=== PATIENT | male | born 1955 | race Caucasian/White ===

== ENCOUNTER 2017-10-17 14:45 | Inpatient (IN) | payer OTHER ==
[2017-10-17] VITALS (9 sets, daily range): BP systolic 120–167; BP diastolic 64–74; PULSE 74–100; RESP 18–22; TEMP 98.2–101.5; O2SAT 90–99
[~2017-10-17] VITALS: Ht 172.7 cm; Wt 129.6 kg
[~2017-10-17 14:45] MED LIST: ASPI81 PO; COZA100T PO; FOLI1 PO; GEMF600 PO; HYDR50TA15 PO; HYDR50TA5 PO; METH2.5 PO; OMEG100037 PO; PRED5TAB PO; TAB-TAB PO
[2017-10-17] MEDS ORDERED: LOSA100T PO (15:17)
[2017-10-17] MEDS ORDERED: CHOLTAB5 PO (15:17)
[2017-10-17] MEDS ORDERED: CYAN1TAB24 PO (15:17)
[2017-10-17] MEDS ORDERED: METH2.5T PO (15:17)
[2017-10-17] MEDS ORDERED: MELA1TAB18 PO (15:17)
[2017-10-17] MEDS ORDERED: ASPI-183 PO (15:17)
[2017-10-17] MEDS ORDERED: FURO40TA PO (15:17)
[2017-10-17] MEDS ORDERED: GEMF600T PO (15:17)
[2017-10-17] MEDS ORDERED: FOLI400T PO (15:17)
[2017-10-17] MEDS ORDERED: HYDR-3801 PO (15:17)
[2017-10-17] MEDS ORDERED: Fish oil PO (15:17)
[2017-10-17] MEDS ORDERED: FERR325T18 PO (15:17)
[2017-10-17] MEDS ORDERED: COQ-50CA2 PO (15:17)
[2017-10-17] MEDS ORDERED: AMLO10TA2 PO (15:17)
--- NOTE | 2017-10-17 15:48 | PD ---
HPI Chief Complaint: Fever Time Seen by Provider: 15:40 Travel History International Travel<30 days: No Contact w/Intl Traveler<30days: No Traveled to known affect area: No History of Present Illness HPI This 62-year-old male says been having fever for the last 4-5 days. He has had fever as high as 101.5. He has not been coughing. He has not had dysuria. He has a history of coronary artery bypass surgery around 20 years ago. He has been told that he has a bad valve for which she is followed by Dr. Damon. He does not smoke or drink. There is been no vomiting or diarrhea. His primary care doctor is Dr. Rivas. He has a history of congestive heart failure. He has had some swelling of his ankles. He is chronically short of breath. He has significant rheumatoid arthritis. He says that last he was taken off of [employer] because it was not working. His rheumatoid factors were going higher. He is having some pain in his hands but no pain in his major joints. PFSH Past Medical History Arthritis: Yes Anxiety: No Depression: No Cancer: No Cardiac Catheterization: Yes Cardiovascular Problems: Yes High Cholesterol: Yes Chest Pain: Yes Congestive Heart Failure: Yes Coronary Artery Disease: Yes Diminished Hearing: No Endocrine: No Genitourinary: Yes Hypertension: Yes Immune Disorder: No Kidney Stones: Yes Musculoskeletal: Yes Neurologic: No Psychiatric: No Reproductive: No Respiratory: No Myocardial Infarction: Yes Tetanus Vaccination: > 5 Years Influenza Vaccination: No Past Surgical History Cardiac Surgery: Yes (CABG) Coronary Artery Bypass Graft: Yes Tonsillectomy: Yes Other Surgery: Yes Social History Alcohol Use: No Tobacco Use: No Substance Use: No Allergies-Medications (Allergen,Severity, Reaction): Coded Allergies: Influenza Virus Vaccines (Unverified Allergy, Severe, SITE SWELLING, ) Reported Meds & Prescriptions Reported Meds & Active Scripts Active Reported Amlodipine (Amlodipine Besylate) 10 Mg Tab 10 Mg PO DAILY Gemfibrozil 600 Mg Tab 600 Mg PO BIDAC Take 30 minutes prior to breakfast and dinner. Melatonin 10 Mg-1 Mg Tab 300 Mcg PO HS PRN Methotrexate 2.5 Mg Tab 20 Mg PO Q7D Losartan (Losartan Potassium) 100 Mg Tab 100 Mg PO DAILY Aspirin 325 Mg Tab 325 Mg PO DAILY B12 (Cyanocobalamin) 1,000 Mcg Tab 1 Tab PO BID Furosemide 40 Mg Tab 40 Mg PO BID Cholestoff (Plant Sterols and Stanols) 450 Mg Tab 1 Tab PO BID Ferrous Sulfate 325 Mg (65 Mg Iron) Tablet 325 Mg PO DAILY Hydralazine (Hydralazine HCl) 100 Mg Tab 100 Mg PO BID Take with meals Folic Acid 0.4 Mg Tab 1 Mg PO DAILY [Fish oil] 1,000 Mg PO BID Coq-10 (Coenzyme Q10 (Ubidecarenone)) 50 Mg Cap 1 Cap PO BID Review of Systems General / Constitutional: Positive: Fever, Chills Eyes: No: Diploplia, Blurred Vision HENT: No: Headaches, Vertigo Cardiovascular: Positive: Edema, No: Chest Pain or Discomfort, Palpitations Respiratory: Positive: Shortness of Breath Gastrointestinal: No: Nausea, Vomiting Genitourinary: No: Urgency, Frequency Musculoskeletal: No: Myalgias, Arthralgias Skin: No Rash, No Itching Endocrine: No: Heat Intolerance, Cold Intolerance Hematologic/Lymphatic: No: Easy Bruising Physical Exam Narrative GENERAL: Well-developed male. Temp is 101.5. Pulse 100 SKIN: Focused skin assessment warm/dry. HEAD: Atraumatic. Normocephalic. EYES: Pupils equal and round. No scleral icterus. No injection or drainage. ENT: No nasal bleeding or discharge. Mucous membranes pink and moist. NECK: Trachea midline. No JVD. CARDIOVASCULAR: Regular rate and rhythm. Faint systolic murmur RESPIRATORY: No accessory muscle use. Clear to auscultation. Breath sounds equal bilaterally. GASTROINTESTINAL: Abdomen soft, non-tender, nondistended. Hepatic and splenic margins not palpable. MUSCULOSKELETAL: No obvious deformities. No clubbing. No cyanosis. Trace edema. NEUROLOGICAL: Awake and alert. No obvious cranial nerve deficits. Motor grossly within normal limits. Normal speech. PSYCHIATRIC: Appropriate mood and affect; insight and judgment normal. Data Data Last Documented VS Vital Signs Date Time Temp Pulse Resp B/P (MAP) Pulse Ox O2 Delivery O2 Flow Rate FiO2 10/17/17 18:35 74 18 120/74 (89) 97 Nasal Cannula 2.00 10/17/17 17:00 99.1 Orders Orders Sepsis Workup Initiated (10/17/17 ) Complete Blood Count With Diff (10/17/17 15:46) Comprehensive Metabolic Panel (10/17/17 15:46) Lactic Acid Sepsis Protocol (10/17/17 15:46) Urinalysis - C+S If Indicated (10/17/17 15:46) Influenzae A/B Antigen (10/17/17 15:46) Blood Culture (10/17/17 15:46) Chest, Single Ap (10/17/17 15:46) Blood Glucose (10/17/17 15:46) Ecg Monitoring (10/17/17 15:46) Iv Access Insert/Monitor (10/17/17 15:46) Oximetry (10/17/17 15:46) Oxygen Administration (10/17/17 15:46) Acetaminophen (Tylenol) (10/17/17 16:00) Sodium Chlor 0.9% 1000 Ml Inj (Ns 1000 M (10/17/17 16:00) Acetaminophen (Tylenol) (10/17/17 16:15) B-Type Natriuretic Peptide (10/17/17 16:48) Furosemide Inj (Lasix Inj) (10/17/17 17:00) Potassium Chloride (Kcl) (10/17/17 17:00) Ct Thorax/ Chest W Iv Contrast (10/17/17 17:51) Iohexol 350 Inj (Omnipaque 350 Inj) (10/17/17 18:26) Labs Laboratory Tests Test 10/17/17 16:00 10/17/17 16:10 White Blood Count 10.3 TH/MM3 Red Blood Count 3.98 MIL/MM3 Hemoglobin 10.7 GM/DL Hematocrit 33.1 % Mean Corpuscular Volume 83.2 FL Mean Corpuscular Hemoglobin 26.8 PG Mean Corpuscular Hemoglobin Concent 32.2 % Red Cell Distribution Width 17.5 % Platelet Count 355 TH/MM3 Mean Platelet Volume 7.6 FL Neutrophils (%) (Auto) 83.7 % Lymphocytes (%) (Auto) 4.4 % Monocytes (%) (Auto) 9.7 % Eosinophils (%) (Auto) 1.8 % Basophils (%) (Auto) 0.4 % Neutrophils # (Auto) 8.6 TH/MM3 Lymphocytes # (Auto) 0.5 TH/MM3 Monocytes # (Auto) 1.0 TH/MM3 Eosinophils # (Auto) 0.2 TH/MM3 Basophils # (Auto) 0.0 TH/MM3 CBC Comment DIFF FINAL Differential Comment Blood Urea Nitrogen 14 MG/DL Creatinine 1.30 MG/DL Random Glucose 136 MG/DL Total Protein 8.4 GM/DL Albumin 3.0 GM/DL Calcium Level 8.8 MG/DL Alkaline Phosphatase 80 U/L Aspartate Amino Transf (AST/SGOT) 17 U/L Alanine Aminotransferase (ALT/SGPT) 24 U/L Total Bilirubin 0.5 MG/DL Sodium Level 136 MEQ/L Potassium Level 3.9 MEQ/L Chloride Level 104 MEQ/L Carbon Dioxide Level 25.3 MEQ/L Anion Gap 7 MEQ/L Estimat Glomerular Filtration Rate 56 ML/MIN Lactic Acid Level 1.4 mmol/L B-Type Natriuretic Peptide 151 PG/ML Urine Color YELLOW Urine Turbidity CLEAR Urine pH 6.0 Urine Specific [place] 1.015 Urine Protein 30 mg/dL Urine Glucose (UA) NEG mg/dL Urine Ketones NEG mg/dL Urine Occult Blood LARGE Urine Nitrite NEG Urine Bilirubin NEG Urine Urobilinogen 0.2 MG/DL Urine Leukocyte Esterase NEG Urine RBC 20-24 /hpf Urine WBC 0-2 /hpf Urine Squamous Epithelial Cells 0-5 /hpf Urine Bacteria NONE /hpf Microscopic Urinalysis Comment CULT NOT INDICATED MDM Medical Decision Making Medical Screen Exam Complete: Yes Emergency Medical Condition: Yes Medical Record Reviewed: Yes Differential Diagnosis Differential includes viral syndrome, UTI, pneumonia Narrative Course Hemoglobin is 10.7 with a white count of 10.7. Urinalysis reveals 20-24 red cells. Chest x-ray is read as showing multiple pulmonary nodules. CT is recommended and has been ordered. CT scan is read as showing diffuse interstitial and groundglass opacities with numerous sub-4 mm random nodule sparing the apices and lung bases. Pattern is somewhat nonspecific but likely infectious/inflammatory in etiology. Consider atypical infections. There is mediastinal adenopathy which is nonspecific. Again favor infectious/ inflammatory etiology. Patient will be admitted for further evaluation. We have not initiated antibiotics as the etiology of the infection is not clear Diagnosis Primary Impression: Fever Additional Impression: Pneumonia Admitting Information Admitting Physician Requests: Admit Triston Quintanilla MD October 17, 2017 15:48
[2017-10-17] MEDS ORDERED: ACETAMINOPHEN 325 MG TAB PO ONE (16:00)
[2017-10-17] MEDS ORDERED: SODIUM CHLOR 0.9% 1000 ML INJ 1,000 ML IV ONE (16:00)
[2017-10-17 16:13] LABS: AUTOMATED NEUTROPHIL # 8.6 TH/MM3 (1.8-7.7); BASOPHIL % 0.4 % (0.0-2.0); EOSINOPHIL # 0.2 TH/MM3 (0-0.4); EOSINOPHIL % 1.8 % (0.0-4.0); HEMATOCRIT 33.1 % (39.0-51.0); HEMOGLOBIN 10.7 GM/DL (13.0-17.0); LYMPH % 4.4 % (9.0-44.0); LYMPHOCYTE # 0.5 TH/MM3 (1.0-4.8); MEAN CELL VOLUME 83.2 FL (80.0-100.0); MEAN CORPUSCULAR HEMOGLOBIN 26.8 PG (27.0-34.0); MEAN CORPUSCULAR HGB CONC 32.2 % (32.0-36.0); MEAN PLATELET VOLUME 7.6 FL (7.0-11.0); MONO % 9.7 % (0.0-8.0); NEUT % 83.7 % (16.0-70.0); PLATELET COUNT 355 TH/MM3 (150-450); RED BLOOD COUNT 3.98 MIL/MM3 (4.50-5.90); RED CELL DISTRIBUTION WIDTH 17.5 % (11.6-17.2); WHITE BLOOD COUNT 10.3 TH/MM3 (4.0-11.0)
[2017-10-17] MEDS ORDERED: ACETAMINOPHEN 500 MG CPLT PO ONE (16:15)
[2017-10-17 16:22] LABS: CHLORIDE 104 MEQ/L (98-107); SODIUM (NA) 136 MEQ/L (136-145)
[2017-10-17 16:22] LABS: BILIRUBIN, URINE NEG (NEG); BLOOD, URINE LARGE (NEG); GLUCOSE,URINE NEG (NEG); KETONE, URINE NEG (NEG); NITRITE,URINE NEG (NEG); URINE COLOR YELLOW (YELLW/STRAW); URINE LEUKOCYTE ESTERASE NEG (NEG)
[2017-10-17 16:25] LABS: BICARBONATE 25.3 MEQ/L (21.0-32.0); CALCIUM 8.8 MG/DL (8.5-10.1)
[2017-10-17 16:26] LABS: BLOOD UREA NITROGEN 14 MG/DL (7-18); GLUCOSE,RANDOM 136 MG/DL (74-106)
[2017-10-17 16:29] LABS: ALT (GPT) 24 U/L (12-78); AST (GOT) 17 U/L (15-37); GLOMERULAR FILTRATION RATE 56 ML/MIN (>89)
[2017-10-17 16:30] LABS: TOTAL BILIRUBIN ADULT 0.5 MG/DL (0.2-1.0); TOTAL PROTEIN 8.4 GM/DL (6.4-8.2)
[2017-10-17 16:31] LABS: ALKALINE PHOSPHATASE 80 U/L (45-117)
[2017-10-17 16:33] LABS: SQUAMOUS EPITHELIAL CELL URINE 0-5 /hpf (0-5); WBC, URINE 0-2 /hpf (0-5)
[2017-10-17] MEDS ORDERED: POTASSIUM CHLORIDE 20 MEQ CONTROLLED RELEASE TAB PO ONE (17:00)
[2017-10-17] MEDS ORDERED: FUROSEMIDE 40 MG/4 ML VIAL IV PUSH ONE (17:00)
--- NOTE | 2017-10-17 17:49 | RADRPT ---
EXAM DATE: 10/17/2017 4:42 PM EDT AGE/SEX: 62 years / Male INDICATIONS: Fever for 4 days CLINICAL DATA: This is the patient's initial encounter. Patient reports that signs and symptoms have been present for 4 - 6 days and indicates a pain score of 0/10. MEDICAL/SURGICAL HISTORY: Cardiovascular disease. CABG. COMPARISON: [facility], CHEST PA & LAT, 12/10/2013. . FINDINGS: Single view chest demonstrates the patient be post median sternotomy. The heart is enlarged. There is diffuse interstitial prominence. There are diffuse pulmonary nodules. These were not evident on prev ious exam of 2013. CT imaging to exclude malignancy is warranted. The visualized bony structures are grossly intact. CONCLUSION: 1. Multiple pulmonary nodules. CT imaging with contrast to exclude malignancy is warranted. 2. Cardiomegaly. Electronically signed by: Ketan Ozuna MD 10/17/2017 5:47 PM EDT
[2017-10-17] MEDS ORDERED: IOHEXOL 350 MG/ML 10 ML VIAL (for RAD DIAG) IVCONTRAST ONE (18:26)
--- NOTE | 2017-10-17 18:45 | RADRPT ---
EXAM DATE: 10/17/2017 6:32 PM EDT AGE/SEX: 62 years / Male INDICATIONS: Fever and tachycardia. Abnormal chest radiograph with multiple pulmonary nodules. Evalu ate for malignancy. CLINICAL DATA: This is the patient's initial encounter. Patient reports that signs and symptoms have been present for 1 day and indicates a pain score of 0/10. MEDICAL/SURGICAL HISTORY: Cardiovascular disease. Hypertension. Myocardial infarction. CABG. RADIATION DOSE: 30.94 CTDI (mGy) ; Patient body habitus COMPARISON: [facility], CHEST PA & LAT, 12/10/2013. . TECHNIQUE: Multiple contiguous axial images were obtained through the chest during bolus infusion of 60 ml Omnipaque 350 (iohexol) nonionic water-soluble contrast as a single exam dose. Images were obtained in suspended respiration using multiple row detector helical technique. Using automated exp osure control and adjustment of the mA and/or kV according to patient size, radiation dose was kept a s low as reasonably achievable to obtain optimal diagnostic quality images. FINDINGS: Lung: There are diffuse groundglass opacities and diffuse interstitial prominence. There are also nu merous sub-4 mm random nodules with apparent sparing of the apices and lung bases. There are no domin ant nodules or masses. No obvious endobronchial abnormality. Pleura: No effusion, significant pleural thickening or pneumothorax. Mediastinum: There are multiple minimally prominent mediastinal nodes measuring up to 1.3 cm in the anterior carinal region and 1.3 cm in AP window. Mild pericardial calcifications and coronary artery calcifications. Postsurgical features of prior median sternotomy. Heart is otherwise unremarkable. Osseous Structures: No abnormal focal lytic or blastic bony lesions. Soft Tissues: Soft tissues are unremarkable. No significant axillary adenopathy. Other: Visulaized upper abdomen is unremarkable. CONCLUSION: 1. Diffuse interstitial and groundglass opacities with numerous sub-4 mm random nodules sparing the apices and lung bases. Overall pattern is somewhat nonspecific but likely infectious/inflammatory in etiology. Consider atypical infections. 2. Mediastinal adenopathy which is also nonspecific. Again, favor infectious/inflammatory etiology. Electronically signed by: Gilmar Severino MD 10/17/2017 6:44 PM EDT
[2017-10-17] MEDS: SODIUM CHLOR 0.9% 1000 ML INJ 1,000 ML IV SCH (19:58)
[2017-10-17] MEDS: ENOXAPARIN SODIUM 40 MG/0.4 ML SYRINGE SQ SCH (19:58)
[2017-10-17] MEDS ORDERED: cefTRIAXone INJ 1,000 MG in SODIUM CHLORIDE 0.9% INJ 100 ML IV SCH (20:00)
[2017-10-17] MEDS ORDERED: NON-FORMULARY DRUG (Coenzyme Q10 (Ubidecarenone) (Coq-10) 1 CAP) PO SCH (21:00)
[2017-10-17] MEDS: CYANOCOBALAMIN 1,000 MCG TAB PO SCH (21:00)
[2017-10-17] MEDS ORDERED: MELATONIN PO PRN (21:00)
[2017-10-17] MEDS: hydrALAZINE HCL 50 MG TAB PO SCH (23:18)
[2017-10-18] MEDS: GEMFIBROZIL 600 MG TAB PO SCH ×2 (05:05→16:12)
[2017-10-18] MEDS: SODIUM CHLOR 0.9% 1000 ML INJ 1,000 ML IV SCH ×2 (05:06→19:40)
[2017-10-18 05:53] LABS: AUTOMATED NEUTROPHIL # 8.2 TH/MM3 (1.8-7.7); BASOPHIL % 0.3 % (0.0-2.0); EOSINOPHIL # 0.2 TH/MM3 (0-0.4); HEMATOCRIT 33.4 % (39.0-51.0); LYMPH % 2.8 % (9.0-44.0); LYMPHOCYTE # 0.3 TH/MM3 (1.0-4.8); MEAN CELL VOLUME 83.3 FL (80.0-100.0); MEAN CORPUSCULAR HEMOGLOBIN 27.4 PG (27.0-34.0); MEAN CORPUSCULAR HGB CONC 32.9 % (32.0-36.0); MEAN PLATELET VOLUME 8.5 FL (7.0-11.0); MONO % 10.4 % (0.0-8.0); NEUT % 84.5 % (16.0-70.0); PLATELET COUNT 375 TH/MM3 (150-450); RED BLOOD COUNT 4.01 MIL/MM3 (4.50-5.90); RED CELL DISTRIBUTION WIDTH 18.2 % (11.6-17.2); WHITE BLOOD COUNT 9.8 TH/MM3 (4.0-11.0)
[2017-10-18 08:00] VITALS: BP 138/65; PULSE 84; RESP 20; TEMP 100.5; O2SAT 95
[2017-10-18] MEDS: CYANOCOBALAMIN 1,000 MCG TAB PO SCH ×3 (08:23→21:05)
[2017-10-18] MEDS: ASPIRIN 325 MG TAB PO SCH (08:24)
[2017-10-18] MEDS: FERROUS SULFATE 325 MG (65 MG ELEMENTAL IRON) TAB PO SCH (08:24)
[2017-10-18] MEDS: FOLIC ACID 1 MG TAB PO SCH (08:24)
[2017-10-18] MEDS: hydrALAZINE HCL 50 MG TAB PO SCH ×2 (08:25→21:00)
[2017-10-18] MEDS: LOSARTAN 50 MG TAB PO SCH (08:25)
--- NOTE | 2017-10-18 08:41 | PD.CONS ---
History of Present Illness Service Infectious Disease Consult Requested By Dr Emre Bee Reason for Consult Fever, Lung nodules, RA Primary Care Physician Dmitri Rivas MD Diagnoses: (1) Rheumatoid arthritis (2) Pulmonary nodules/lesions, multiple (3) Fever (4) Pneumonia History of Present Illness Patient with known Rheumatoid arthritis has been on Methotrexate for a while and just got off Xeljanz because it was not working - started having fevers last Sunday. Also noticed some shortness of breath and a dry cough so came to hospital. Imaging studies reveal multiple pulmonary nodules. No h/o lung problems before. Works with [employer]. Prior to living in [place]- was in [place]. Has a dog and cats at home. TB test prior to starting immunosuppressives were negative. Review of Systems Constitutional: COMPLAINS OF: Fever, Chills Endocrine: DENIES: Polydipsia, Polyphagia Eyes: DENIES: Eye inflammation, Eye pain, Vision loss Ears, nose, mouth, throat: DENIES: Nasal discharge, Oral lesions, Throat pain, Hoarseness Respiratory: COMPLAINS OF: Cough, DENIES: Hemoptysis, Sputum production, Shortness of breath Cardiovascular: DENIES: Chest pain, Palpitations Gastrointestinal: DENIES: Constipation, Diarrhea, Difficulty Swallowing, Anorexia Genitourinary: DENIES: Urinary frequency, Urgency, Hematuria Musculoskeletal: COMPLAINS OF: Joint pain, Muscle aches, Joint Swelling Integumentary: DENIES: Pruritus, Rash Hematologic/lymphatic: DENIES: Bruising, Lymphadenopathy Neurologic: DENIES: Headache, Localized weakness, Paresthesias Psychiatric: DENIES: Confusion, Mood changes, Depression Past Family Social History Allergies: Coded Allergies: Influenza Virus Vaccines (Unverified Allergy, Severe, SITE SWELLING, ) Past Medical History HTN CAD RA Hyperlipidemia Past Surgical History CABG Tonsillectomy Active Ordered Medications Got a dose of Ceftriaxone Family History No h/o RA Social History . 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 Lived in [place] prior to [place] Past smoker Physical Exam Vital Signs Vital Signs Date Time Temp Pulse Resp B/P (MAP) Pulse Ox O2 Delivery O2 Flow Rate FiO2 10/18/17 08:00 100.5 84 20 138/65 (89) 95 10/17/17 22:00 98.2 81 20 146/65 (92) 90 10/17/17 21:34 78 18 98 Nasal Cannula 2.00 5/30/18 21:33 78 18 141/68 (92) 97 Nasal Cannula 2.00 10/17/17 21:12 97 Nasal Cannula 2.00 10/17/17 20:03 74 18 145/64 (91) 97 Nasal Cannula 2.00 10/17/17 18:35 74 18 120/74 (89) 97 Nasal Cannula 2.00 10/17/17 17:00 99.1 80 22 140/68 (92) 94 Nasal Cannula 2.00 10/17/17 15:05 96 Nasal Cannula 2.00 10/17/17 15:05 96 Nasal Cannula 2.00 10/17/17 15:00 101.5 92 20 167/74 (105) 96 Nasal Cannula 2.00 10/17/17 14:58 101.5 100 18 167/74 (105) 99 Physical Exam GENERAL: This is a obese patient,- needing oxygen via nasal canula SKIN: No rashes, ecchymoses or lesions. Cool and dry. HEAD: Atraumatic. Normocephalic. No temporal or scalp tenderness. EYES: Pupils equal round and reactive. Extraocular motions intact. No scleral icterus. No injection or drainage. ENT: Nose without bleeding, purulent drainage or septal hematoma. Throat without erythema, tonsillar hypertrophy or exudate. Uvula midline. Airway patent. NECK: Trachea midline. No JVD or lymphadenopathy. Supple, nontender, no meningeal signs. CARDIOVASCULAR: Regular rate and rhythm without murmurs, gallops, or rubs. Midline scar of surgery RESPIRATORY: Clear to auscultation. Breath sounds decreased bilaterally. No wheezes, rales, or rhonchi. GASTROINTESTINAL: Abdomen soft, non-tender, nondistended. No hepato-splenomegaly , or palpable masses. No guarding. MUSCULOSKELETAL: Extremities without clubbing, cyanosis, or edema. No joint tenderness, effusion, or edema noted. No calf tenderness. Negative Homans sign bilaterally. NEUROLOGICAL: Awake and alert. Cranial nerves II through XII intact. Motor and sensory grossly within normal limits. Five out of 5 muscle strength in all muscle groups. Normal speech. Laboratory Laboratory Tests Test 10/17/17 16:00 10/17/17 16:10 10/18/17 04:40 White Blood Count 10.3 9.8 Red Blood Count 3.98 4.01 Hemoglobin 10.7 11.0 Hematocrit 33.1 33.4 Mean Corpuscular Volume 83.2 83.3 Mean Corpuscular Hemoglobin 26.8 27.4 Mean Corpuscular Hemoglobin Concent 32.2 32.9 Red Cell Distribution Width 17.5 18.2 Platelet Count 355 375 Mean Platelet Volume 7.6 8.5 Neutrophils (%) (Auto) 83.7 84.5 Lymphocytes (%) (Auto) 4.4 2.8 Monocytes (%) (Auto) 9.7 10.4 Eosinophils (%) (Auto) 1.8 2.0 Basophils (%) (Auto) 0.4 0.3 Neutrophils # (Auto) 8.6 8.2 Lymphocytes # (Auto) 0.5 0.3 Monocytes # (Auto) 1.0 1.0 Eosinophils # (Auto) 0.2 0.2 Basophils # (Auto) 0.0 0.0 CBC Comment DIFF FINAL DIFF FINAL Differential Comment Blood Urea Nitrogen 14 Creatinine 1.30 Random Glucose 136 Total Protein 8.4 Albumin 3.0 Calcium Level 8.8 Alkaline Phosphatase 80 Aspartate Amino Transf (AST/SGOT) 17 Alanine Aminotransferase (ALT/SGPT) 24 Total Bilirubin 0.5 Sodium Level 136 Potassium Level 3.9 Chloride Level 104 Carbon Dioxide Level 25.3 Anion Gap 7 Estimat Glomerular Filtration Rate 56 Lactic Acid Level 1.4 B-Type Natriuretic Peptide 151 Urine Color YELLOW Urine Turbidity CLEAR Urine pH 6.0 Urine Specific [place] 1.015 Urine Protein 30 Urine Glucose (UA) NEG Urine Ketones NEG Urine Occult Blood LARGE Urine Nitrite NEG Urine Bilirubin NEG Urine Urobilinogen 0.2 Urine Leukocyte Esterase NEG Urine RBC 20-24 Urine WBC 0-2 Urine Squamous Epithelial Cells 0-5 Urine Bacteria NONE Microscopic Urinalysis Comment CULT NOT INDICATED Date/Time Source Procedure Growth Status 10/17/17 16:05 Blood Peripheral Aerobic Blood Culture Pending Received 10/17/17 16:05 Blood Peripheral Anaerobic Blood Culture Pending Received 10/17/17 16:00 Nasal Aspirate Influenza Types A,B Antigen (CHELA) - Final NEGATIVE FOR FLU A AND B ANTIGEN.... Complete 10/18/17 05:10 Urine Random Urine Legionella Antigen Pending Received 10/18/17 05:10 Urine Random Urine Streptococcus pneumoniae Antigen (M Pending Received Result Diagram: 10/18/17 0440 10/17/17 1600 Assessment and Plan Problem List: (1) Fever ICD Codes: R50.9 - Fever, unspecified Status: Acute Plan: Follow Blood cultures Check for atypical infections- mycoplasma, chlamydiae & Legionella Also check for Histoplasma, TB Quantiferon and Bartonella Start Cefepime and Doxy Check Echo (2) Pneumonia ICD Codes: J18.9 - Pneumonia, unspecified organism Status: Acute (3) Pulmonary nodules/lesions, multiple ICD Codes: R91.8 - Other nonspecific abnormal finding of lung field Plan: Pulmonary evaluation May need Bronchoscopy (4) Rheumatoid arthritis ICD Codes: M06.9 - Rheumatoid arthritis, unspecified Status: Chronic Renetta Amezcua MD October 18, 2017 08:41
[2017-10-18] MEDS: CEFEPIME INJ 2,000 MG in SODIUM CHLORIDE 0.9% INJ 100 ML IV SCH ×2 (09:02→21:00)
[2017-10-18] MEDS: DOXYCYCLINE INJ 100 MG in SODIUM CHLORIDE 0.9% INJ 100 ML IV SCH ×2 (10:07→22:40)
[2017-10-18 12:00] VITALS: BP 127/58; PULSE 83; RESP 20; TEMP 98.5; O2SAT 95
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
[2017-10-18 13:48] VITALS: TEMP 99.3
--- NOTE | 2017-10-18 15:06 | MB ---
cc: Adwoa Orona MD DATE: 10/18/2017 REASON FOR CONSULTATION: Bilateral lung nodules, shortness of breath, fever. HISTORY OF PRESENT ILLNESS: Mr. Mccray is a 62-year-old male who was admitted through the emergency room with 4-5 days of elevated temperature. The patient as well was complaining of increasing shortness of breath. He does have a dry cough. He said he has been short of breath for over a year now. It comes and goes. He does have a remote smoking history; however, has not smoked for 30 years or so. No history of TB or industrial exposure. Used to live in [place] before he moved to the [facility]. PAST MEDICAL HISTORY: Rheumatoid arthritis and has been on methotrexate in the past, previous PPD testing was negative, history of coronary artery disease, post coronary artery bypass graft surgery 20 years ago, history of renal calculi, tonsillectomy and adenoidectomy as a child, hypertension. ALLERGIES: INFLUENZA VACCINE AND STATINS. MEDICATIONS UPON PRESENTATION: Include methotrexate, ferrous sulfate, Lopid, hydralazine, amlodipine, losartan, aspirin, Lasix, vitamin tablet. 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 REVIEW OF SYSTEMS: A 12-point review of systems as per HPI and past medical history. The patient as well states that his tells him his breathing is somewhat irregular when he is sleeping at night. PHYSICAL EXAMINATION: GENERAL: The patient alert. VITAL SIGNS: Temperature is 99.3, pulse 84, respirations 20, blood pressure 130/60, oxygen saturation 95% on 2 liters oxygen nasal cannula. HEENT: Unremarkable. Eyes without icterus. NECK: Without adenopathy, thyroid enlargement. Central trachea. CHEST: Few scattered rhonchi bilaterally. CARDIAC: PMI not appreciated. S1, S2 audible, 1/6 soft ejection systolic murmur in left sternal border. ABDOMEN: Obese, lax. Bowel sounds audible. EXTREMITIES: No clubbing, cyanosis or edema. SKIN: Normal. No lymphadenopathy. LABORATORY DATA: White count 9.8, hemoglobin 11, hematocrit 33, platelets 375,000. Sodium 136, potassium 3.9, BUN 14, creatinine 1.3. CT scan of the chest: Bilateral lung nodules sub 4 mm in diameter with sparing of the apices and bases, nonspecific mediastinal adenopathy. IMPRESSION: 1. Fever, etiology unclear. No clear evidence of pneumonia. 2. Bilateral lung nodules, apparently chronic. 3. Shortness of breath related to above or underlying pulmonary disease, COPD suspect. 4. Rheumatoid arthritis. 5. Morbid obesity, sleep disorder, breathing specifically, obstructive sleep apnea and/or obesity, hypoventilation suspect. PLAN: The patient was seen by Dr. Amezcua infectious disease and started on antibiotic therapy for possible atypical pneumonitis. Blood cultures and serology pending at this time. We will follow the patient's chest x-ray. Obtain baseline pulmonary function. Bronchoscopy will be undertaken if the patient fails to clinically improve. I have discussed bronchoscopy with the patient. However, he does not want to transfer to the main campus. I do thank you for asking me to partake in Mr. Mccray's care. Adwoa Orona MD WWW/TL , 02:40 PM , 03:06 PM
[2017-10-18 15:56] VITALS: BP 164/72; PULSE 80; RESP 20; TEMP 99.1; O2SAT 95
[2017-10-18 19:35] VITALS: O2SAT 95
[2017-10-18 20:00] VITALS: BP 132/63; PULSE 86; RESP 18; TEMP 99.2; O2SAT 93
[2017-10-18] MEDS: ENOXAPARIN SODIUM 40 MG/0.4 ML SYRINGE SQ SCH (20:59)
[2017-10-19] VITALS: BP 141/63; PULSE 92; RESP 18; TEMP 99.5; O2SAT 93
[2017-10-19] MEDS: GEMFIBROZIL 600 MG TAB PO SCH ×2 (05:53→15:07)
[2017-10-19 08:00] VITALS: BP 148/69; PULSE 87; RESP 20; TEMP 98.6; O2SAT 92
[2017-10-19] MEDS: FERROUS SULFATE 325 MG (65 MG ELEMENTAL IRON) TAB PO SCH (08:18)
[2017-10-19] MEDS: CYANOCOBALAMIN 1,000 MCG TAB PO SCH ×2 (08:18→19:51)
[2017-10-19] MEDS: ASPIRIN 325 MG TAB PO SCH (08:18)
[2017-10-19] MEDS: FOLIC ACID 1 MG TAB PO SCH (08:18)
[2017-10-19] MEDS: LOSARTAN 50 MG TAB PO SCH (08:19)
[2017-10-19] MEDS: hydrALAZINE HCL 50 MG TAB PO SCH ×2 (08:19→19:51)
[2017-10-19] MEDS: CEFEPIME INJ 2,000 MG in SODIUM CHLORIDE 0.9% INJ 100 ML IV SCH ×2 (08:20→19:50)
--- NOTE | 2017-10-19 08:43 | HHI.IDPN ---
Subjective Subjective Remarks ID DR AMEZCUA HE FEELS FINE WANTS TO GO HOME PULM SUGGEST OUTPATIENT BRONCH (Linda Rawls) Allergies: Coded Allergies: Influenza Virus Vaccines (Unverified Allergy, Severe, SITE SWELLING, ) Review of Systems Constitutional Constitutional: Fatigue Constitutional Remarks NO FEVER OR CHILLS UP AT BEDSIDE (Linda Rawls) Objective . Vital Signs Date Time Temp Pulse Resp B/P (MAP) Pulse Ox O2 Delivery O2 Flow Rate FiO2 10/19/17 00:00 99.5 92 18 141/63 (89) 93 10/18/17 20:00 99.2 86 18 132/63 (86) 93 10/18/17 19:35 95 Nasal Cannula 2.00 10/18/17 15:56 99.1 80 20 164/72 (102) 95 10/18/17 13:48 99.3 10/18/17 12:00 98.5 83 20 127/58 (81) 95 . Laboratory Tests Test 10/17/17 16:00 10/18/17 04:40 White Blood Count 10.3 TH/MM3 9.8 TH/MM3 Red Blood Count 3.98 MIL/MM3 4.01 MIL/MM3 Hemoglobin 10.7 GM/DL 11.0 GM/DL Hematocrit 33.1 % 33.4 % Mean Corpuscular Volume 83.2 FL 83.3 FL Mean Corpuscular Hemoglobin 26.8 PG 27.4 PG Mean Corpuscular Hemoglobin Concent 32.2 % 32.9 % Red Cell Distribution Width 17.5 % 18.2 % Platelet Count 355 TH/MM3 375 TH/MM3 Mean Platelet Volume 7.6 FL 8.5 FL Neutrophils (%) (Auto) 83.7 % 84.5 % Lymphocytes (%) (Auto) 4.4 % 2.8 % Monocytes (%) (Auto) 9.7 % 10.4 % Eosinophils (%) (Auto) 1.8 % 2.0 % Basophils (%) (Auto) 0.4 % 0.3 % Neutrophils # (Auto) 8.6 TH/MM3 8.2 TH/MM3 Lymphocytes # (Auto) 0.5 TH/MM3 0.3 TH/MM3 Monocytes # (Auto) 1.0 TH/MM3 1.0 TH/MM3 Eosinophils # (Auto) 0.2 TH/MM3 0.2 TH/MM3 Basophils # (Auto) 0.0 TH/MM3 0.0 TH/MM3 CBC Comment DIFF FINAL DIFF FINAL Differential Comment Laboratory Tests Test 10/17/17 16:00 10/18/17 09:50 Blood Urea Nitrogen 14 MG/DL Creatinine 1.30 MG/DL Random Glucose 136 MG/DL Total Protein 8.4 GM/DL Albumin 3.0 GM/DL Calcium Level 8.8 MG/DL Alkaline Phosphatase 80 U/L Aspartate Amino Transf (AST/SGOT) 17 U/L Alanine Aminotransferase (ALT/SGPT) 24 U/L Total Bilirubin 0.5 MG/DL Sodium Level 136 MEQ/L Potassium Level 3.9 MEQ/L Chloride Level 104 MEQ/L Carbon Dioxide Level 25.3 MEQ/L Anion Gap 7 MEQ/L Estimat Glomerular Filtration Rate 56 ML/MIN Lactic Acid Level 1.4 mmol/L B-Type Natriuretic Peptide 151 PG/ML Thyroid Stimulating Hormone 3rd Gen 0.344 uIU/ML Microbiology Date/Time Source Procedure Growth Status 10/17/17 16:05 Blood Peripheral Aerobic Blood Culture - Preliminary NO GROWTH IN 1 DAY Resulted 10/17/17 16:05 Blood Peripheral Anaerobic Blood Culture - Preliminary NO GROWTH IN 1 DAY Resulted 10/17/17 16:00 Blood Peripheral Aerobic Blood Culture - Preliminary NO GROWTH IN 1 DAY Resulted 10/17/17 16:00 Blood Peripheral Anaerobic Blood Culture - Preliminary NO GROWTH IN 1 DAY Resulted 10/18/17 15:45 Sputum Expectorated Sputum Gram Stain - Final Resulted 10/18/17 15:45 Sputum Expectorated Sputum Sputum Culture Pending Resulted 10/17/17 16:00 Nasal Aspirate Influenza Types A,B Antigen (CHELA) - Final NEGATIVE FOR FLU A AND B ANTIGEN.... Complete 10/18/17 05:10 Urine Random Urine Legionella Antigen - Final PRESUMPTIVE NEGATIVE FOR LEGIONELLA P... Complete 10/18/17 05:10 Urine Random Urine Streptococcus pneumoniae Antigen (M - Final PRESUMPTIVE NEGATIVE FOR STREPTOCOCCU... Complete Physical Exam GENERAL: OBESE IN NAD HEENT: PERRL NS CHEST: CLEAR ANTERIOR. SOME CRACKLES FINE AT BASES CARDIAC: RRR ABDOMEN SOFT NT EXT NO EDEMA (Rawls,Linda PRODUCT MARKETING DIRECTOR) Assessment & Plan Diagnosis: (1) Pneumonia ICD Codes: J18.9 - Pneumonia, unspecified organism Status: Acute Plan: PLAN TO CONTINUE AND MONITOR AND FU HE NEEDS A BRONCH WITH CULTURES FOR AFP/FUNGAL/GRAM STAIN IF HE IS GOING HOME WILL NEED TO DO PO AND FU AFTER THE BRONCH IS DONE. (Linda Rawls) Linda Rawls Oct 19, 2017 08:43 Renetta Amezcua MD Oct 20, 2017 21:55
[2017-10-19] MEDS: DOXYCYCLINE INJ 100 MG in SODIUM CHLORIDE 0.9% INJ 100 ML IV SCH ×2 (09:16→21:26)
[2017-10-19] MEDS: SODIUM CHLOR 0.9% 1000 ML INJ 1,000 ML IV SCH ×2 (09:18→20:12)
[2017-10-19 12:00] VITALS: BP 152/73; PULSE 86; RESP 20; TEMP 98.6; O2SAT 93
--- NOTE | 2017-10-19 12:12 | ECHRPT ---
Indication: POSS SEPSIS, ENDOCARDITIS CONCLUSIONS The left ventricular systolic function is normal with an estimated ejection fraction in the range of 60-65%. There is abnormal (paradoxical) septal motion consistent with postoperative state. Wall thickness is normal. Mildly dilated left ventricle. There is abnormal (paradoxical) septal motion consistent with postoperative state. The left atrial size is ahdg-ag-ugapyfmitd dilated. The right atrial size is vlqf-yk-qaegmeijul dilated. The interatrial septum not well visualized. Mild mitral valve regurgitation. Aortic valve sclerosis is present. Moderate thickening of the aortic valve leaflets. More likely sclerosis, less likely vegetation. Diffuse calcification of the aortic valve. Aortic valve area is 1.7 cm. Aortic valve mean gradient is 17 mmHg. Trace aortic valve regurgitation. There is mild tricuspid valve regurgitation. The estimated pulmonary arterial pressure is 68.7 mmHg. There is estimated remwsaqj-kp-fttlio pulmonary hypertension present (range 60-70 mmHg). Trivial pulmonary valve regurgitation. The inferior vena cava was not well visualized. BP: 141 / 63 HR: 92 Rhythm: Sinus MEASUREMENTS (Male / Female) Normal Values Technical Quality:Fair 2D ECHO LV Diastolic Diameter PLAX 6.1 cm 4.2 - 5.9 / 3.9 - 5.3 cm LV Systolic Diameter PLAX 4.3 cm IVS Diastolic Thickness 1.0 cm 0.6 - 1.0 / 0.6 - 0.9 cm LVPW Diastolic Thickness 1.0 cm 0.6 - 1.0 / 0.6 - 0.9 cm LV Relative Wall Thickness 0.3 RV Internal Dim ED PLAX 2.9 cm LVOT Diameter 2.1 cm Aortic Root Diameter 3.3 cm LA Systolic Diameter LX 5.0 cm 3.0 - 4.0 / 2.7 - 3.8 cm M-MODE AV Cusp Separation MM 2.2 cm DOPPLER AV Peak Velocity 289.0 cm/s AV Peak Gradient 33.4 mmHg AV Mean Gradient 17.0 mmHg AV Velocity Time Integral 54.5 cm LVOT Peak Velocity 139.0 cm/s LVOT Peak Gradient 7.7 mmHg LVOT Velocity Time Integral 26.4 cm AV Area Cont Eq vti 1.7 cm AV Area Cont Eq pk 1.7 cm Mitral E Point Velocity 124.0 cm/s Mitral A Point Velocity 69.1 cm/s Mitral E to A Ratio 1.8 LV E' Lateral Velocity 11.4 cm/s Mitral E to LV E' Lateral Ratio 10.9 LV E' Septal Velocity 6.8 cm/s Mitral E to LV E' Septal Ratio 18.2 TR Peak Velocity 383.0 cm/s TR Peak Gradient 58.7 mmHg Right Atrial Pressure 10.0 mmHg Pulmonary Artery Systolic Pressu 68.7 mmHg Right Ventricular Systolic Press 68.7 mmHg PV Peak Velocity 113.0 cm/s PV Peak Gradient 5.1 mmHg FINDINGS LEFT VENTRICLE Wall thickness is normal. Mildly dilated left ventricle. The left ventricular systolic function is normal with an estimated ejection fraction in the range of 60-65%. There is abnormal (paradoxical) septal motion consistent with postoperative state. RIGHT VENTRICLE Normal right ventricular size and systolic function. LEFT ATRIUM The left atrial size is thpj-ya-sxfvvicits dilated. RIGHT ATRIUM The right atrial size is cmqq-nn-wpmlbfqmbe dilated. ATRIAL SEPTUM The interatrial septum not well visualized. AORTA The aortic root and proximal ascending aorta are normal in size on limited imaging. MITRAL VALVE Mild mitral valve regurgitation. AORTIC VALVE Aortic valve sclerosis is present. Moderate thickening of the aortic valve leaflets. More likely sclerosis, less likely vegetation. Diffuse calcification of the aortic valve. Aortic valve area is 1.7 cm. Aortic valve mean gradient is 17 mmHg. Trace aortic valve regurgitation. TRICUSPID VALVE There is mild tricuspid valve regurgitation. The estimated pulmonary arterial pressure is 68.7 mmHg. There is estimated kzyekbcx-xr-qvkiyz pulmonary hypertension present (range 60-70 mmHg). PULMONARY VALVE Trivial pulmonary valve regurgitation. VESSELS The inferior vena cava was not well visualized. PERICARDIUM No pericardial effusion. Parker Tolentino MD, FACC (Electronically Signed) Final Date:19 October 2017 12:11
--- NOTE | 2017-10-19 13:26 | HHI.PR ---
Subjective Remarks no new complaints Objective Vitals Vital Signs Date Time Temp Pulse Resp B/P (MAP) Pulse Ox O2 Delivery O2 Flow Rate FiO2 10/19/17 08:00 98.6 87 20 148/69 (95) 92 10/19/17 00:00 99.5 92 18 141/63 (89) 93 10/18/17 20:00 99.2 86 18 132/63 (86) 93 10/18/17 19:35 95 Nasal Cannula 2.00 10/18/17 15:56 99.1 80 20 164/72 (102) 95 10/18/17 13:48 99.3 Result Diagram: 10/18/17 0440 10/17/17 1600 Other Results Microbiology Date/Time Source Procedure Growth Status 10/18/17 15:45 Sputum Expectorated Sputum Gram Stain - Final Resulted 10/18/17 15:45 Sputum Expectorated Sputum Sputum Culture - Preliminary LIGHT GROWTH NORMAL RESPIRATORY CHRISTOPHER... Resulted Imaging Last Impressions Chest CT 10/17/17 1751 Signed Impressions: CONCLUSION: 1. Diffuse interstitial and groundglass opacities with numerous sub-4 mm rando m nodules sparing the apices and lung bases. Overall pattern is somewhat nonspe cific but likely infectious/inflammatory in etiology. Consider atypical infecti ons. 2. Mediastinal adenopathy which is also nonspecific. Again, favor infectious/i nflammatory etiology. Chest X-Ray 10/17/17 1546 Signed Impressions: CONCLUSION: 1. Multiple pulmonary nodules. CT imaging with contrast to exclude malignancy is warranted. 2. Cardiomegaly. Objective Remarks Sitting on couch with family wearing oxygen obese lungs clear to auscultation heart sounds distant slight pitting edema A/P Problem List: (1) Fever ICD Codes: R50.9 - Fever, unspecified Status: Acute Plan: fever curve is lower on antibiotics, spoke to ID who stated could go home on oral ceftin and doxycycline with f/u with her for rest of tests (2) Pulmonary nodules/lesions, multiple ICD Codes: R91.8 - Other nonspecific abnormal finding of lung field Plan: Seen by Dr Orona yesterday and declined transfer to the main He was agreeable to transfer today but bronchoscopy would not take place till sunday Discussed with patient and he will go home on oral antibiotics and call to see Dr Orona on sun or sunday to schedule bronchoscopy will do walk test to verify need for home oxygen (abgs were questionable) (3) Rheumatoid arthritis ICD Codes: M06.9 - Rheumatoid arthritis, unspecified Status: Chronic Plan: only on methotrexate now, stopped last (4) Hypertension ICD Codes: I10 - Hypertension Status: Chronic Plan: cont home medications (5) Coronary artery disease ICD Codes: I25.10 - Coronary artery disease Status: Chronic Plan: stable Discharge Planning plan for discharge today after walk test with close f/u with Dr Orona and Dr Ngo Problem Qualifiers (1) Coronary artery disease: Ally Hernandez MD Oct 19, 2017 13:26
[2017-10-19] MEDS ORDERED: DOXY100C PO (13:34)
[2017-10-19] MEDS ORDERED: CEFU1TAB18 PO (13:34)
[2017-10-19] MEDS ORDERED: OXYGENDME NAS.CANULA (15:55)
[2017-10-19 16:00] VITALS: BP 160/70; PULSE 99; RESP 22; TEMP 100.3; O2SAT 94
[2017-10-19] MEDS: ENOXAPARIN SODIUM 40 MG/0.4 ML SYRINGE SQ SCH (19:49)
[2017-10-19 20:00] VITALS: BP 137/63; PULSE 96; RESP 22; TEMP 101; O2SAT 93
[2017-10-19] MEDS: ACETAMINOPHEN 325 MG TAB PO PRN (22:59)
[2017-10-20] VITALS (9 sets, daily range): BP systolic 136–172; BP diastolic 63–76; PULSE 83–96; RESP 20–22; TEMP 98.8–101.8; O2SAT 91–95
[2017-10-20 00:38] LABS: BARTONELLA HENSELAE IGG <1:128 titer (<1:128); BARTONELLA HENSELAE IGM <1:20 titer (<1:20); BARTONELLA QUINTANA IGG <1:128 titer (<1:128); BARTONELLA QUINTANA IGM <1:20 titer (<1:20); MYCOPLASMA PNEUMONIAE IGG Positive (Negative); MYCOPLASMA PNEUMONIAE IGM Negative (Negative)
[2017-10-20] MEDS: GEMFIBROZIL 600 MG TAB PO SCH ×2 (06:03→14:36)
[2017-10-20] MEDS: ACETAMINOPHEN 325 MG TAB PO PRN ×3 (06:12→23:37)
[2017-10-20] MEDS: SODIUM CHLOR 0.9% 1000 ML INJ 1,000 ML IV SCH (06:17)
--- NOTE | 2017-10-20 06:25 | HHI.PR ---
Subjective Remarks Reports that he actually slept well last night. This is the first night that he did not cough significantly. Did bring up some scant to moderate dark phlegm this morning. No edwin hemoptysis. It is noted that he has had a few more low-grade fevers. Failed walk test yesterday and will need home oxygen. Objective Vitals Vital Signs Date Time Temp Pulse Resp B/P (MAP) Pulse Ox O2 Delivery O2 Flow Rate FiO2 10/20/17 06:10 100.5 10/20/17 00:34 99.7 10/20/17 00:00 98.8 83 22 172/76 (108) 91 10/19/17 20:00 93 Nasal Cannula 2.00 10/19/17 20:00 101.0 96 22 137/63 (87) 93 10/19/17 16:00 100.3 99 22 160/70 (100) 94 10/19/17 12:00 98.6 86 20 152/73 (99) 93 10/19/17 08:00 92 Nasal Cannula 2.00 10/19/17 08:00 98.6 87 20 148/69 (95) 92 GENERAL: Sleeping, arouses to voice. No acute distress. Alert and oriented. Cooperative. Obese. SKIN: Warm and dry. HEAD: Normocephalic. EYES: No scleral icterus. No injection or drainage. NECK: Supple, trachea midline. No JVD or lymphadenopathy. CARDIOVASCULAR: Regular rate and rhythm without murmurs, gallops, or rubs. RESPIRATORY: Breath sounds equal bilaterally. Few coarse breath sounds at the bases but overall fair air movement. No wheeze. GASTROINTESTINAL: Abdomen soft, non-tender, nondistended. Bowel sounds normal. MUSCULOSKELETAL: No cyanosis. Moves all extremities well. Trace edema distal lower extremities. BACK: No CVA tenderness. Result Diagram: 10/18/17 0440 10/17/17 1600 Imaging Last Impressions Chest CT 10/17/17 1751 Signed Impressions: CONCLUSION: 1. Diffuse interstitial and groundglass opacities with numerous sub-4 mm rando m nodules sparing the apices and lung bases. Overall pattern is somewhat nonspe cific but likely infectious/inflammatory in etiology. Consider atypical infecti ons. 2. Mediastinal adenopathy which is also nonspecific. Again, favor infectious/i nflammatory etiology. Chest X-Ray 10/17/17 9457 Signed Impressions: CONCLUSION: 1. Multiple pulmonary nodules. CT imaging with contrast to exclude malignancy is warranted. 2. Cardiomegaly. Urinary Catheter: No Vascular Central Line Catheter: No A/P Problem List: (1) Fever ICD Codes: R50.9 - Fever, unspecified Status: Acute Plan: Still having some low-grade fevers. Fever responds to Tylenol. Clinically seems better based on his report but I will use caution given the recurrence of fever. Dr. Davey spoke to ID on 10/19 who stated could go home on oral ceftin and doxycycline with f/u with her for rest of tests Patient failed oxygen walk test and will need home oxygen. Likely want be able to go home at least until tomorrow given fever which is even recurred this morning at 100.5 per (2) Pulmonary nodules/lesions, multiple ICD Codes: R91.8 - Other nonspecific abnormal finding of lung field Plan: Seen by Dr Orona and declined transfer to the main for possible bronchoscopy. Dr. Davey discussed with patient and he will go home on oral antibiotics and call to see Dr Orona on sun or sunday to schedule bronchoscopy. Patient reportedly has an appointment with Dr. Orona on Sunday already. (3) Rheumatoid arthritis ICD Codes: M06.9 - Rheumatoid arthritis, unspecified Status: Chronic Plan: only on methotrexate now, stopped last due to infectious symptoms per (4) Hypertension ICD Codes: I10 - Hypertension Status: Chronic Plan: cont home medications. BP not quite to goal. (5) Coronary artery disease ICD Codes: I25.10 - Coronary artery disease Status: Chronic Plan: stable Discharge Planning Will depend on his clinical progress and fever curve. If he continues to spike fevers or fever curve increases will have ID render another opinion regarding appropriateness of antibiotic therapy. Problem Qualifiers (1) Hypertension: Qualified Codes: I10 - Essential (primary) hypertension (2) Coronary artery disease: Yony Dave MD PhD Oct 20, 2017 06:25
[2017-10-20] MEDS: LOSARTAN 50 MG TAB PO SCH (08:27)
[2017-10-20] MEDS: ASPIRIN 325 MG TAB PO SCH (08:27)
[2017-10-20] MEDS: FERROUS SULFATE 325 MG (65 MG ELEMENTAL IRON) TAB PO SCH (08:27)
[2017-10-20] MEDS: hydrALAZINE HCL 50 MG TAB PO SCH ×2 (08:28→20:42)
[2017-10-20] MEDS: FOLIC ACID 1 MG TAB PO SCH (08:28)
[2017-10-20] MEDS: CYANOCOBALAMIN 1,000 MCG TAB PO SCH ×2 (08:28→20:42)
[2017-10-20] MEDS: POTASSIUM CHLORIDE 10 MEQ CONTROLLED RELEASE TAB PO SCH (08:28)
[2017-10-20] MEDS: FUROSEMIDE 40 MG TAB PO SCH (08:28)
[2017-10-20] MEDS: CEFEPIME INJ 2,000 MG in SODIUM CHLORIDE 0.9% INJ 100 ML IV SCH ×2 (08:29→20:42)
[2017-10-20] MEDS: DOXYCYCLINE INJ 100 MG in SODIUM CHLORIDE 0.9% INJ 100 ML IV SCH ×2 (10:00→22:04)
[2017-10-20] MEDS: ENOXAPARIN SODIUM 40 MG/0.4 ML SYRINGE SQ SCH (20:42)
--- NOTE | 2017-10-20 22:47 | RADRPT ---
EXAM DATE: 10/20/2017 10:42 PM EDT AGE/SEX: 62 years / Male INDICATIONS: Pneumonia. CLINICAL DATA: This is the patient's subsequent encounter. Patient reports that signs and symptoms h ave been present for 1 week and indicates a pain score of 4/10. MEDICAL/SURGICAL HISTORY: . Cardiovascular disease. Myocardial infarction. . CABG COMPARISON: [facility]PO, CHEST PA & LAT, 12/10/2013. . FINDINGS: Diffuse infiltrates are noted bilaterally consistent with severe pulmonary edema or pneumonia. Clinic al correlation is recommended. The heart is enlarged. Median sternotomy wires are noted status post c ardiac surgery. CONCLUSION: 1. Diffuse infiltrates are noted bilaterally consistent with severe pulmonary edema or pneumonia. Cl inical correlation is recommended. 2. Cardiomegaly. Electronically signed by: Javier Cowan MD 10/20/2017 10:45 PM EDT
[2017-10-21] VITALS (8 sets, daily range): BP systolic 124–153; BP diastolic 60–69; PULSE 85–103; RESP 18–26; TEMP 98.4–102.7; O2SAT 90–97
--- NOTE | 2017-10-21 07:40 | HHI.PR ---
Subjective Remarks Fever curve worsening. Patient reports that he feels overall okay until he gets his antibiotics and then starts to have some worsening of symptomatology. Cough is stable to improved. He is now agreeable to bronchoscopy as inpatient. Objective Vitals Vital Signs Date Time Temp Pulse Resp B/P (MAP) Pulse Ox O2 Delivery O2 Flow Rate FiO2 10/21/17 04:00 98.4 85 20 137/62 (87) 97 10/21/17 00:00 102.7 103 26 126/60 (82) 90 10/20/17 23:39 92 10/20/17 20:00 93 Nasal Cannula 2.00 10/20/17 20:00 99.3 85 22 136/63 (87) 93 10/20/17 16:05 101.8 96 21 168/72 (104) 92 10/20/17 13:21 99.9 86 20 137/64 (88) 95 10/20/17 09:00 100.0 88 21 144/65 (91) 92 10/20/17 07:50 95 Nasal Cannula 2.00 GENERAL: Sitting on sofa. No acute distress. Alert and oriented. Cooperative. Obese. SKIN: Warm and dry. HEAD: Normocephalic. Nasal cannula in place. EYES: No scleral icterus. No injection or drainage. NECK: Supple, trachea midline. No JVD or lymphadenopathy. CARDIOVASCULAR: Regular rate and rhythm without murmurs, gallops, or rubs. RESPIRATORY: Breath sounds equal bilaterally. Few coarse breath sounds at the bases but overall fair air movement. No wheeze or fine crackles. GASTROINTESTINAL: Abdomen soft, non-tender, nondistended. Bowel sounds normal. MUSCULOSKELETAL: No cyanosis. Moves all extremities well. Trace edema distal lower extremities. BACK: No CVA tenderness. Result Diagram: 10/18/17 0440 10/17/17 1600 Imaging Last Impressions Chest CT 10/17/17 1751 Signed Impressions: CONCLUSION: 1. Diffuse interstitial and groundglass opacities with numerous sub-4 mm rando m nodules sparing the apices and lung bases. Overall pattern is somewhat nonspe cific but likely infectious/inflammatory in etiology. Consider atypical infecti ons. 2. Mediastinal adenopathy which is also nonspecific. Again, favor infectious/i nflammatory etiology. Chest X-Ray 10/17/17 1546 Signed Impressions: CONCLUSION: 1. Multiple pulmonary nodules. CT imaging with contrast to exclude malignancy is warranted. 2. Cardiomegaly. Urinary Catheter: No Vascular Central Line Catheter: No A/P Problem List: (1) Fever ICD Codes: R50.9 - Fever, unspecified Status: Acute Plan: Fever curve is worsening. Fever responds to Tylenol. I spoke to Dr. Amezcua this morning who recommended adding Diflucan and encouraged patient to have bronchoscopy. Patient now agreeable to bronchoscopy. Will make pulmonology aware. Patient failed oxygen walk test and will need home oxygen. (2) Pulmonary nodules/lesions, multiple ICD Codes: R91.8 - Other nonspecific abnormal finding of lung field Plan: Seen by Dr Orona and declined transfer to the main for possible bronchoscopy. Now agreeable to procedure as inpatient. (3) Rheumatoid arthritis ICD Codes: M06.9 - Rheumatoid arthritis, unspecified Status: Chronic Plan: only on methotrexate now, stopped last due to infectious symptoms per (4) Hypertension ICD Codes: I10 - Hypertension Status: Chronic Plan: cont home medications. BP not quite to goal. (5) Coronary artery disease ICD Codes: I25.10 - Coronary artery disease Status: Chronic Plan: stable Discharge Planning Will depend on his clinical progress and fever curve. Problem Qualifiers (1) Hypertension: Qualified Codes: I10 - Essential (primary) hypertension (2) Coronary artery disease: Yony Dave MD PhD Oct 21, 2017 07:40
[2017-10-21] MEDS: GEMFIBROZIL 600 MG TAB PO SCH ×2 (07:59→16:36)
[2017-10-21] MEDS: FUROSEMIDE 40 MG TAB PO SCH (08:00)
[2017-10-21] MEDS ORDERED: FLUCONAZOLE 200 MG TAB PO ONE (08:00)
[2017-10-21] MEDS: ASPIRIN 325 MG TAB PO SCH (08:01)
[2017-10-21] MEDS: LOSARTAN 50 MG TAB PO SCH (08:01)
[2017-10-21] MEDS: CYANOCOBALAMIN 1,000 MCG TAB PO SCH ×2 (08:01→21:25)
[2017-10-21] MEDS: hydrALAZINE HCL 50 MG TAB PO SCH ×2 (08:01→21:26)
[2017-10-21] MEDS: CEFEPIME INJ 2,000 MG in SODIUM CHLORIDE 0.9% INJ 100 ML IV SCH ×2 (08:06→21:23)
[2017-10-21] MEDS: FERROUS SULFATE 325 MG (65 MG ELEMENTAL IRON) TAB PO SCH (08:06)
[2017-10-21] MEDS: FOLIC ACID 1 MG TAB PO SCH (08:06)
[2017-10-21] MEDS: POTASSIUM CHLORIDE 10 MEQ CONTROLLED RELEASE TAB PO SCH (08:06)
[2017-10-21] MEDS: SODIUM CHLOR 0.9% 1000 ML INJ 1,000 ML IV SCH ×3 (08:07→21:23)
[2017-10-21] MEDS: ACETAMINOPHEN 325 MG TAB PO PRN ×2 (08:28→16:36)
[2017-10-21] MEDS: DOXYCYCLINE HYCLATE 100 MG CAP PO SCH ×2 (08:28→21:25)
[2017-10-21 09:14] LABS: AUTOMATED NEUTROPHIL # 10.8 TH/MM3 (1.8-7.7); BASOPHIL % 0.2 % (0.0-2.0); EOSINOPHIL # 0.3 TH/MM3 (0-0.4); EOSINOPHIL % 2.2 % (0.0-4.0); HEMOGLOBIN 9.8 GM/DL (13.0-17.0); LYMPH % 4.1 % (9.0-44.0); LYMPHOCYTE # 0.5 TH/MM3 (1.0-4.8); MEAN CELL VOLUME 82.9 FL (80.0-100.0); MEAN CORPUSCULAR HGB CONC 33.8 % (32.0-36.0); MEAN PLATELET VOLUME 7.7 FL (7.0-11.0); MONO % 9.5 % (0.0-8.0); MONOCYTE # 1.2 TH/MM3 (0-0.9); PLATELET COUNT 407 TH/MM3 (150-450); RED CELL DISTRIBUTION WIDTH 17.6 % (11.6-17.2); WHITE BLOOD COUNT 12.8 TH/MM3 (4.0-11.0)
[2017-10-21 09:48] LABS: ALBUMIN 2.7 GM/DL (3.4-5.0); BICARBONATE 25.2 MEQ/L (21.0-32.0); BLOOD UREA NITROGEN 14 MG/DL (7-18); CALCIUM 8.5 MG/DL (8.5-10.1); GLUCOSE,RANDOM 119 MG/DL (74-106)
[2017-10-21 09:51] LABS: ALT (GPT) 23 U/L (12-78); AST (GOT) 20 U/L (15-37); GLOMERULAR FILTRATION RATE 68 ML/MIN (>89)
[2017-10-21 09:53] LABS: TOTAL PROTEIN 8.3 GM/DL (6.4-8.2)
[2017-10-21 09:54] LABS: ALKALINE PHOSPHATASE 84 U/L (45-117)
[2017-10-21 09:55] LABS: CHLORIDE 104 MEQ/L (98-107); SODIUM (NA) 136 MEQ/L (136-145)
[2017-10-21 10:07] LABS: TOTAL BILIRUBIN ADULT 0.5 MG/DL (0.2-1.0)
[2017-10-21 11:28] LABS: HISTOPLASMA ANTIGEN UR RESULT Negative (Negative)
--- NOTE | 2017-10-21 17:40 | HHI.IDPN ---
Subjective Subjective Remarks ID FU DR GONSALES PT STILL RUNNING FEVERS TM 101 [place] DC WAS HELD BC X 2 DRAWN, ALL CULTURES NEGATIVE SO FAR WAITING ON TRANSFER TO [facility] FOR BRONCHOSCOPY HE C/O SOB WITH ACTIVITY SOME RIGHT UPPER CHEST PAIN WITH INSPIRATION IN THE EARLY MORNINGS BUT SELF LIMITING MIN COUGH Allergies: Coded Allergies: Influenza Virus Vaccines (Unverified Allergy, Severe, SITE SWELLING, ) Review of Systems Constitutional Constitutional Remarks NO FEVER OR CHILLS UP AT BEDSIDE Objective . Vital Signs Date Time Temp Pulse Resp B/P (MAP) Pulse Ox O2 Delivery O2 Flow Rate FiO2 10/21/17 12:00 99.3 87 18 153/69 (97) 94 10/21/17 11:04 96 Nasal Cannula 3.00 10/21/17 08:00 93 Nasal Cannula 2.00 10/21/17 08:00 101.2 91 18 147/69 (95) 93 10/21/17 04:00 98.4 85 20 137/62 (87) 97 10/21/17 00:00 102.7 103 26 126/60 (82) 90 10/20/17 23:39 92 10/20/17 20:00 93 Nasal Cannula 2.00 10/20/17 20:00 99.3 85 22 136/63 (87) 93 10/21/17 10/21/17 10/22/17 15:00 23:00 07:00 Intake Total 525 ml Balance 525 ml IV Total 525 ml . Laboratory Tests Test 10/21/17 08:55 White Blood Count 12.8 TH/MM3 Red Blood Count 3.50 MIL/MM3 Hemoglobin 9.8 GM/DL Hematocrit 29.0 % Mean Corpuscular Volume 82.9 FL Mean Corpuscular Hemoglobin 28.0 PG Mean Corpuscular Hemoglobin Concent 33.8 % Red Cell Distribution Width 17.6 % Platelet Count 407 TH/MM3 Mean Platelet Volume 7.7 FL Neutrophils (%) (Auto) 84.0 % Lymphocytes (%) (Auto) 4.1 % Monocytes (%) (Auto) 9.5 % Eosinophils (%) (Auto) 2.2 % Basophils (%) (Auto) 0.2 % Neutrophils # (Auto) 10.8 TH/MM3 Lymphocytes # (Auto) 0.5 TH/MM3 Monocytes # (Auto) 1.2 TH/MM3 Eosinophils # (Auto) 0.3 TH/MM3 Basophils # (Auto) 0.0 TH/MM3 CBC Comment DIFF FINAL Differential Comment Laboratory Tests Test 10/21/17 08:55 Blood Urea Nitrogen 14 MG/DL Creatinine 1.10 MG/DL Random Glucose 119 MG/DL Total Protein 8.3 GM/DL Albumin 2.7 GM/DL Calcium Level 8.5 MG/DL Alkaline Phosphatase 84 U/L Aspartate Amino Transf (AST/SGOT) 20 U/L Alanine Aminotransferase (ALT/SGPT) 23 U/L Total Bilirubin 0.5 MG/DL Sodium Level 136 MEQ/L Potassium Level 3.8 MEQ/L Chloride Level 104 MEQ/L Carbon Dioxide Level 25.2 MEQ/L Anion Gap 7 MEQ/L Estimat Glomerular Filtration Rate 68 ML/MIN Microbiology Date/Time Source Procedure Growth Status 10/21/17 08:55 Blood Peripheral Aerobic Blood Culture Pending Received 10/21/17 08:55 Blood Peripheral Anaerobic Blood Culture Pending Received 10/21/17 08:45 Blood Peripheral Aerobic Blood Culture Pending Received 10/21/17 08:45 Blood Peripheral Anaerobic Blood Culture Pending Received Physical Exam GENERAL: OBESE IN NAD HEENT: PERRL NS CHEST: CLEAR ANTERIOR. SOME CRACKLES FINE AT BASES CARDIAC: RRR ABDOMEN SOFT NT EXT NO EDEMA Assessment & Plan Diagnosis: (1) Pneumonia ICD Codes: J18.9 - Pneumonia, unspecified organism Status: Acute Plan: PLAN TO CONTINUE AND MONITOR AND FU HE NEEDS A BRONCH WITH CULTURES FOR AFP/FUNGAL/GRAM STAIN DOXYCYLINE STARTED CONTINUE CEFEPIME FLUCONAZOLE ADDED Linda Rawls Oct 21, 2017 17:40
--- NOTE | 2017-10-21 19:53 | HHI.PR ---
Subjective Remarks 62 YO male with Fever, Lung infilt, mild sob On Abx Cont to have fever Up in chair pt decided to proceed with bronch Objective Vital Signs Vital Signs Date Time Temp Pulse Resp B/P (MAP) Pulse Ox O2 Delivery O2 Flow Rate FiO2 10/21/17 16:00 100.3 99 18 142/63 (89) 94 10/21/17 12:00 99.3 87 18 153/69 (97) 94 10/21/17 11:04 96 Nasal Cannula 3.00 10/21/17 08:00 93 Nasal Cannula 2.00 10/21/17 08:00 101.2 91 18 147/69 (95) 93 10/21/17 04:00 98.4 85 20 137/62 (87) 97 10/21/17 00:00 102.7 103 26 126/60 (82) 90 10/20/17 23:39 92 10/20/17 20:00 93 Nasal Cannula 2.00 10/20/17 20:00 99.3 85 22 136/63 (87) 93 I/O 10/20/17 10/20/17 10/20/17 10/21/17 10/21/17 10/21/17 07:00 15:00 23:00 07:00 15:00 23:00 Intake Total 266 ml 450 ml 1260 ml 580 ml 1125 ml Output Total 500 ml 2 ml Balance -234 ml 450 ml 1260 ml 580 ml 1123 ml Intake Oral 450 ml 960 ml 480 ml 600 ml IV Total 266 ml 300 ml 100 ml 525 ml Output Urine Total 500 ml Stool Total 2 ml # Voids 5 7 4 4 # Bowel Movements 1 2 2 3 Result Diagram: 10/21/17 0855 10/21/17 0855 Objective Remarks GENERAL: Obese male, mild sob SKIN: Warm and dry. HEAD: Normocephalic. EYES: No scleral icterus. No injection or drainage. NECK: Supple, trachea midline. No JVD or lymphadenopathy. CARDIOVASCULAR: Regular rate and rhythm without murmurs, gallops, or rubs. RESPIRATORY: Breath sounds equal bilaterally. No accessory muscle use. Bilat rhonchi GASTROINTESTINAL: Abdomen soft, non-tender, nondistended. MUSCULOSKELETAL: No cyanosis, or edema. BACK: Nontender without obvious deformity. No CVA tenderness. A/P Assessment and Plan IMPESSION: Pneumonia Fever CAD HTN RH Arthritis PLAN: Cont Abx Cefepime and Doxy Cont Diflucan Supplement 02 Plans to tr to [facility] main for bronch will FU in Jovany Lagunas MD Oct 21, 2017 19:53
[2017-10-21] MEDS: ENOXAPARIN SODIUM 40 MG/0.4 ML SYRINGE SQ SCH (21:22)
[2017-10-22] VITALS (9 sets, daily range): BP systolic 104–169; BP diastolic 55–79; PULSE 80–106; RESP 18–28; TEMP 98.9–101.8; O2SAT 91–98
[2017-10-22] MEDS: ACETAMINOPHEN 325 MG TAB PO PRN ×3 (00:47→21:41)
[2017-10-22] MEDS: GEMFIBROZIL 600 MG TAB PO SCH ×2 (05:39→16:18)
[2017-10-22] MEDS ORDERED: DEXT 5%-NACL 0.45% 1000 ML INJ 1,000 ML IV SCH (08:52)
[2017-10-22] MEDS ORDERED: RESP: LIDOCAINE HCL 4% PF 5 ML NEB NEB SCH (09:00)
--- NOTE | 2017-10-22 09:42 | HHI.PR ---
Subjective Remarks Had fever up to 101.8. Order was placed yesterday for transfer to [facility] in [place] for bronchoscopy but a bed will not be available until today. Dr Dave wrote transfer order yesterday around noon. Patient still with cough and on oxygen. Diflucan was added yesterday as per ID recommendations. Objective Vitals Vital Signs Date Time Temp Pulse Resp B/P (MAP) Pulse Ox O2 Delivery O2 Flow Rate FiO2 10/22/17 09:15 99.8 85 22 144/72 (96) 92 10/22/17 00:00 101.8 106 28 132/61 (84) 91 10/21/17 20:14 94 Nasal Cannula 3.00 10/21/17 20:00 95 Nasal Cannula 3.00 10/21/17 20:00 99.7 88 26 124/60 (81) 93 10/21/17 16:00 100.3 99 18 142/63 (89) 94 10/21/17 12:00 99.3 87 18 153/69 (97) 94 10/21/17 11:04 96 Nasal Cannula 3.00 Result Diagram: 10/21/17 0855 10/21/17 0855 Other Results Laboratory Tests Test 10/21/17 08:55 White Blood Count 12.8 TH/MM3 Red Blood Count 3.50 MIL/MM3 Hemoglobin 9.8 GM/DL Hematocrit 29.0 % Mean Corpuscular Volume 82.9 FL Mean Corpuscular Hemoglobin 28.0 PG Mean Corpuscular Hemoglobin Concent 33.8 % Red Cell Distribution Width 17.6 % Platelet Count 407 TH/MM3 Mean Platelet Volume 7.7 FL Neutrophils (%) (Auto) 84.0 % Lymphocytes (%) (Auto) 4.1 % Monocytes (%) (Auto) 9.5 % Eosinophils (%) (Auto) 2.2 % Basophils (%) (Auto) 0.2 % Neutrophils # (Auto) 10.8 TH/MM3 Lymphocytes # (Auto) 0.5 TH/MM3 Monocytes # (Auto) 1.2 TH/MM3 Eosinophils # (Auto) 0.3 TH/MM3 Basophils # (Auto) 0.0 TH/MM3 CBC Comment DIFF FINAL Differential Comment Blood Urea Nitrogen 14 MG/DL Creatinine 1.10 MG/DL Random Glucose 119 MG/DL Total Protein 8.3 GM/DL Albumin 2.7 GM/DL Calcium Level 8.5 MG/DL Alkaline Phosphatase 84 U/L Aspartate Amino Transf (AST/SGOT) 20 U/L Alanine Aminotransferase (ALT/SGPT) 23 U/L Total Bilirubin 0.5 MG/DL Sodium Level 136 MEQ/L Potassium Level 3.8 MEQ/L Chloride Level 104 MEQ/L Carbon Dioxide Level 25.2 MEQ/L Anion Gap 7 MEQ/L Estimat Glomerular Filtration Rate 68 ML/MIN Imaging Last Impressions Chest X-Ray 10/20/17 0000 Signed Impressions: CONCLUSION: 1. Diffuse infiltrates are noted bilaterally consistent with severe pulmonary edema or pneumonia. Clinical correlation is recommended. 2. Cardiomegaly. Chest CT 10/17/17 175 Signed Impressions: CONCLUSION: 1. Diffuse interstitial and groundglass opacities with numerous sub-4 mm rando m nodules sparing the apices and lung bases. Overall pattern is somewhat nonspe cific but likely infectious/inflammatory in etiology. Consider atypical infecti ons. 2. Mediastinal adenopathy which is also nonspecific. Again, favor infectious/i nflammatory etiology. Last Impressions Chest CT 10/17/171750 Signed Impressions: CONCLUSION: 1. Diffuse interstitial and groundglass opacities with numerous sub-4 mm rando m nodules sparing the apices and lung bases. Overall pattern is somewhat nonspe cific but likely infectious/inflammatory in etiology. Consider atypical infecti ons. 2. Mediastinal adenopathy which is also nonspecific. Again, favor infectious/i nflammatory etiology. Chest X-Ray 10/17/17 1546 Signed Impressions: CONCLUSION: 1. Multiple pulmonary nodules. CT imaging with contrast to exclude malignancy is warranted. 2. Cardiomegaly. Objective Remarks Exam: Pleasant male in no distress HEENT: Pupils equal, no scleral icterus Neck: No JVD Heart: RRR with no murmurs Lungs: faint crackles in the bases Abdomen: Soft, nontender Neuro: no focal findings. alert, oriented A/P Discharge Planning Assessment: --Pneumonia --Fever --Pulmonary nodules --Coronary artery disease --Hypertension --Rheumatoid arthritis Plan: Patient is to be transferred to [place] under the [facility] hospitalist service up there and to undergo bronchoscopy. Continue Cefepime, Doxycycline, and Diflucan. Continue oxygen Jose Alberto Juarez MD Oct 22, 2017 09:42
[2017-10-22 09:50] LABS: BASOPHIL % 0.4 % (0.0-2.0); EOSINOPHIL # 0.3 TH/MM3 (0-0.4); EOSINOPHIL % 2.2 % (0.0-4.0); HEMATOCRIT 29.4 % (39.0-51.0); HEMOGLOBIN 9.8 GM/DL (13.0-17.0); LYMPHOCYTE # 0.6 TH/MM3 (1.0-4.8); MEAN CELL VOLUME 82.8 FL (80.0-100.0); MEAN CORPUSCULAR HEMOGLOBIN 27.7 PG (27.0-34.0); MEAN CORPUSCULAR HGB CONC 33.5 % (32.0-36.0); MEAN PLATELET VOLUME 7.9 FL (7.0-11.0); MONO % 10.1 % (0.0-8.0); MONOCYTE # 1.2 TH/MM3 (0-0.9); NEUT % 82.3 % (16.0-70.0); PLATELET COUNT 457 TH/MM3 (150-450); RED BLOOD COUNT 3.55 MIL/MM3 (4.50-5.90); RED CELL DISTRIBUTION WIDTH 18.2 % (11.6-17.2); WHITE BLOOD COUNT 12.1 TH/MM3 (4.0-11.0)
[2017-10-22 10:17] LABS: INTERNATIONAL NORMALIZED RATIO 1.2 RATIO
[2017-10-22] MEDS: CEFEPIME INJ 2,000 MG in SODIUM CHLORIDE 0.9% INJ 100 ML IV SCH ×2 (10:25→21:34)
[2017-10-22] MEDS: hydrALAZINE HCL 50 MG TAB PO SCH ×2 (10:26→21:36)
[2017-10-22] MEDS: ASPIRIN 325 MG TAB PO SCH (10:26)
[2017-10-22] MEDS: FLUCONAZOLE 200 MG TAB PO SCH (10:26)
[2017-10-22] MEDS: POTASSIUM CHLORIDE 10 MEQ CONTROLLED RELEASE TAB PO SCH (10:26)
[2017-10-22] MEDS: LOSARTAN 50 MG TAB PO SCH (10:27)
[2017-10-22] MEDS: DOXYCYCLINE HYCLATE 100 MG CAP PO SCH ×2 (10:27→21:36)
[2017-10-22] MEDS: CYANOCOBALAMIN 1,000 MCG TAB PO SCH ×2 (10:27→21:36)
[2017-10-22] MEDS: FUROSEMIDE 40 MG TAB PO SCH (10:27)
[2017-10-22] MEDS: FERROUS SULFATE 325 MG (65 MG ELEMENTAL IRON) TAB PO SCH (10:27)
[2017-10-22] MEDS: FOLIC ACID 1 MG TAB PO SCH (10:27)
[2017-10-22] MEDS: SODIUM CHLOR 0.9% 1000 ML INJ 1,000 ML IV SCH ×2 (10:28→21:42)
[2017-10-22] MEDS ORDERED: METOPROLOL TARTRATE 25 MG TAB PO PRN (15:00)
[2017-10-22] MEDS ORDERED: LACTATED RINGER'S 1000 ML IV PRN (15:00)
[2017-10-22] MEDS ORDERED: POVIDONE IODINE 5% (ANTISEPSIS KIT) 4 APPLICATIONS EACH NARE PRN (15:00)
[2017-10-22] MEDS ORDERED: SODIUM CHLORID 0.9% 500 ML IV PRN (15:00)
[2017-10-22] MEDS ORDERED: CHLORHEXIDINE GLUCONATE 2 % 1 PACK (2 CLOTHS) TOPICAL PRN (15:00)
[2017-10-22 16:19] LABS: MITOGEN MINUS NIL RESULT 0.32 IU/mL; NIL RESULT 0.04 IU/mL; QUANTIFERON TB GOLD + RESULT Indeterminate (Negative)
[2017-10-22] MEDS: ENOXAPARIN SODIUM 40 MG/0.4 ML SYRINGE SQ SCH (21:36)
[2017-10-23] VITALS (7 sets, daily range): BP systolic 136–156; BP diastolic 61–73; PULSE 84–93; RESP 18–26; TEMP 98.7–102.4; O2SAT 93–96
[2017-10-23] MEDS: ACETAMINOPHEN 325 MG TAB PO PRN ×2 (04:20→13:42)
[2017-10-23] MEDS: GEMFIBROZIL 600 MG TAB PO SCH (06:21)
[2017-10-23] MEDS: CYANOCOBALAMIN 1,000 MCG TAB PO SCH ×2 (08:06→21:00)
[2017-10-23] MEDS: LOSARTAN 50 MG TAB PO SCH (08:06)
[2017-10-23] MEDS: FOLIC ACID 1 MG TAB PO SCH (08:06)
[2017-10-23] MEDS: FUROSEMIDE 40 MG TAB PO SCH (08:06)
[2017-10-23] MEDS: hydrALAZINE HCL 50 MG TAB PO SCH ×2 (08:06→21:00)
[2017-10-23] MEDS: DOXYCYCLINE HYCLATE 100 MG CAP PO SCH ×2 (08:07→21:00)
[2017-10-23] MEDS: ASPIRIN 325 MG TAB PO SCH (08:07)
[2017-10-23] MEDS: POTASSIUM CHLORIDE 10 MEQ CONTROLLED RELEASE TAB PO SCH (08:07)
[2017-10-23] MEDS: FERROUS SULFATE 325 MG (65 MG ELEMENTAL IRON) TAB PO SCH (08:07)
[2017-10-23] MEDS: FLUCONAZOLE 200 MG TAB PO SCH (08:07)
[2017-10-23] MEDS: SODIUM CHLOR 0.9% 1000 ML INJ 1,000 ML IV SCH (08:08)
[2017-10-23] MEDS: CEFEPIME INJ 2,000 MG in SODIUM CHLORIDE 0.9% INJ 100 ML IV SCH (08:08)
--- NOTE | 2017-10-23 10:20 | HHI.IDPN ---
Subjective Subjective Remarks ID COVERAGE Patient with known Rheumatoid arthritis has been on Methotrexate for a while, given Salagen and was taken off, admitted for 4-5 day Hx of fevers. he has had problem with SOB for years, but has been worse for >1 year. 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 No CP today No N/V No diarrhea Voiding ok Has dog and cat at home Born in [place], has been here in [place] .30 years Lives at home with and grown daughter No exposure to sick children or person Antibiotics Current Medications Medications (Trade) Dose Ordered Sig/Gonzalo Route Start Time Stop Time Status Last Admin Sodium Chloride 1,000 ml @ 83 mls/hr Q12H3M IV 10/17/17 20:00 10/23/17 08:08 (Tylenol) 650 mg Q4H PRN PO 10/17/17 19:30 10/23/17 04:20 (Lovenox Inj) 40 mg Q24H SQ 10/17/17 20:00 10/22/17 21:36 (Norvasc) 10 mg DAILY PO 10/18/17 09:00 10/23/17 08:06 (Aspirin) 325 mg DAILY PO 10/18/17 09:00 10/23/17 08:07 (Ferrous Sulfate) 325 mg DAILY PO 10/18/17 09:00 10/23/17 08:07 (Folate) 1 mg DAILY PO 10/18/17 09:00 10/23/17 08:06 (Lopid) 600 mg BIDAC PO 10/18/17 07:00 10/22/17 16:18 (Apresoline) 100 mg BID PO 10/17/17 21:00 10/23/17 08:06 (Cozaar) 100 mg DAILY PO 10/18/17 09:00 10/23/17 08:06 Cefepime HCl 2000 mg/Sodium Chloride 100 ml @ 200 mls/hr Q12H IV 10/18/17 09:00 10/23/17 08:08 (Vitamin B12) 1,000 mcg BID PO 10/18/17 21:05 10/23/17 08:06 (Lasix) 40 mg DAILY PO 10/20/17 09:00 10/23/17 08:06 (KCl) 10 meq DAILY PO 10/20/17 09:00 10/23/17 08:07 (Vibramycin) 100 mg BID PO 10/21/17 09:00 10/23/17 08:07 (Diflucan) 200 mg DAILY PO 10/22/17 09:00 10/23/17 08:07 Dextrose/Sodium Chloride 1,000 ml @ 0 mls/hr Q0M IV 10/22/17 08:52 (Lidocaine Pf 4% Neb) 3 ml [employer] NEB 10/22/17 09:00 10/26/17 08:59 Lactated Ringer's 1,000 ml @ 30 mls/hr Q24H PRN IV 10/22/17 15:00 10/25/17 14:59 Sodium Chloride 500 ml @ 30 mls/hr [id number] PRN IV 10/22/17 15:00 10/25/17 14:59 (Lopressor) 25 mg [employer] PRN PO 10/22/17 15:00 10/25/17 14:59 (Betadine 5% Antisepsis Kit) 1 applic [employer] PRN EACH NARE 10/22/17 15:00 10/25/17 14:59 (Chlorhexidine 2% Cloth) 3 pack [employer] PRN TOPICAL 10/22/17 15:00 10/25/17 14:59 Lines PIV no evidence of infection Past Medical History HTN CAD RA Hyperlipidemia Past Surgical History CABG Tonsillectomy Allergies: Coded Allergies: Influenza Virus Vaccines (Unverified Allergy, Severe, SITE SWELLING, ) Objective . Vital Signs Date Time Temp Pulse Resp B/P (MAP) Pulse Ox O2 Delivery O2 Flow Rate FiO2 10/23/17 07:54 98.7 84 22 136/61 (86) 93 10/23/17 06:21 99.6 10/23/17 04:16 102.4 92 20 141/67 (91) 95 10/23/17 00:00 99.6 90 18 156/73 (100) 95 10/22/17 21:40 101.0 10/22/17 20:54 94 5.00 10/22/17 20:00 100.5 93 20 155/72 (99) 93 10/22/17 19:35 5.00 98 10/22/17 16:17 98.9 88 22 169/79 (109) 94 10/22/17 11:49 101.0 95 22 169/72 (104) 92 . Laboratory Tests Test 10/22/17 09:25 White Blood Count 12.1 TH/MM3 Red Blood Count 3.55 MIL/MM3 Hemoglobin 9.8 GM/DL Hematocrit 29.4 % Mean Corpuscular Volume 82.8 FL Mean Corpuscular Hemoglobin 27.7 PG Mean Corpuscular Hemoglobin Concent 33.5 % Red Cell Distribution Width 18.2 % Platelet Count 457 TH/MM3 Mean Platelet Volume 7.9 FL Neutrophils (%) (Auto) 82.3 % Lymphocytes (%) (Auto) 5.0 % Monocytes (%) (Auto) 10.1 % Eosinophils (%) (Auto) 2.2 % Basophils (%) (Auto) 0.4 % Neutrophils # (Auto) 10.0 TH/MM3 Lymphocytes # (Auto) 0.6 TH/MM3 Monocytes # (Auto) 1.2 TH/MM3 Eosinophils # (Auto) 0.3 TH/MM3 Basophils # (Auto) 0.0 TH/MM3 CBC Comment AUTO DIFF Differential Comment AUTO DIFF CONFIRMED Platelet Estimate HIGH Platelet Morphology Comment NORMAL Microbiology Date/Time Source Procedure Growth Status 10/21/17 08:55 Blood Peripheral Aerobic Blood Culture - Preliminary NO GROWTH IN 1 DAY Resulted 10/21/17 08:55 Blood Peripheral Anaerobic Blood Culture - Preliminary NO GROWTH IN 1 DAY Resulted 10/21/17 08:45 Blood Peripheral Aerobic Blood Culture - Preliminary NO GROWTH IN 1 DAY Resulted 10/21/17 08:45 Blood Peripheral Anaerobic Blood Culture - Preliminary NO GROWTH IN 1 DAY Resulted Imaging Last Impressions Chest X-Ray 10/20/17 0000 Signed Impressions: CONCLUSION: 1. Diffuse infiltrates are noted bilaterally consistent with severe pulmonary edema or pneumonia. Clinical correlation is recommended. 2. Cardiomegaly. Chest CT 10/17/17 2701 Signed Impressions: CONCLUSION: 1. Diffuse interstitial and groundglass opacities with numerous sub-4 mm rando m nodules sparing the apices and lung bases. Overall pattern is somewhat nonspe cific but likely infectious/inflammatory in etiology. Consider atypical infecti ons. 2. Mediastinal adenopathy which is also nonspecific. Again, favor infectious/i nflammatory etiology. Physical Exam GENERAL: This is a obese patient, up on sofa, looks comfortable while talking SKIN: No rashes, ecchymoses or lesions. Cool and dry. HEAD: Atraumatic. Normocephalic. No temporal or scalp tenderness. EYES: Pupils equal round and reactive. Extraocular motions intact. No scleral icterus. No injection or drainage. ENT: Nose without purulent drainage . Moist oral mucosa. NECK: Trachea midline. No lymphadenopathy. Supple, nontender, no meningeal signs. CARDIOVASCULAR: Regular rate and rhythm without murmurs, gallops, or rubs. Midline scar of surgery RESPIRATORY: Coarse BS bilaterally with few rhonchi on R side GASTROINTESTINAL: Abdomen soft, non-tender, nondistended. MUSCULOSKELETAL: Extremities without clubbing, cyanosis, or edema. No calf tenderness. Negative Homans sign bilaterally. NEUROLOGICAL: Non-focal LINE: No evidence of infection Assessment & Plan Remarks IMPRESSION Fevers, persistent, has bilateral pulmonary infiltrates - no clear infectious etiology identified - temps not better despite broad spectrum Abx - ?due to RA Bilateral pulmonary infiltrates, hypoxic - bacterial work-up negative - quantiferon indeterminate - ?unusual pathogen - ?due to RA Known RA RECOMMENDATION Pulmonary planning on bronch Change cefepime to Levaquin Also on Doxycyline and Diflucan Check ESR, CRP, LDH May need open lung biopsy Follow temps Monitor progress I will follow along with you Pina Calix MD Oct 23, 2017 10:20
[2017-10-23] MEDS: LEVOFLOXACIN 750 MG PREMIX INJ 150 ML IV SCH (13:42)
--- NOTE | 2017-10-23 16:01 | HHI.PR ---
Subjective Remarks alert no distress Objective Vital Signs Date Time Temp Pulse Resp B/P (MAP) Pulse Ox O2 Delivery O2 Flow Rate FiO2 10/23/17 12:27 99.7 84 22 149/64 (92) 95 10/23/17 11:20 93 Nasal Cannula 5.00 10/23/17 10:07 93 Nasal Cannula 5.00 10/23/17 07:54 98.7 84 22 136/61 (86) 93 10/23/17 06:21 99.6 10/23/17 04:16 102.4 92 20 141/67 (91) 95 10/23/17 00:00 99.6 90 18 156/73 (100) 95 10/22/17 21:40 101.0 10/22/17 20:54 94 5.00 10/22/17 20:00 100.5 93 20 155/72 (99) 93 10/22/17 19:35 5.00 98 10/22/17 16:17 98.9 88 22 169/79 (109) 94 I/O 10/22/17 10/22/17 10/22/17 10/23/17 10/23/17 10/23/17 07:00 15:00 23:00 07:00 15:00 23:00 Intake Total 400 ml Balance 400 ml Intake Oral 300 ml IV Total 100 ml # Voids 1 3 # Bowel Movements 1 Result Diagram: 10/22/17 0925 10/21/17 0855 Objective Remarks GENERAL: SKIN: Warm and dry. HEAD: Atraumatic. Normocephalic. EYES: Pupils equal and round. No scleral icterus. No injection or drainage. ENT: No nasal bleeding or discharge. Mucous membranes pink and moist. NECK: Trachea midline. No JVD. CARDIOVASCULAR: Regular rate and rhythm. RESPIRATORY: No accessory muscle use. Clear to auscultation. Breath sounds equal bilaterally. GASTROINTESTINAL: Abdomen soft, non-tender, nondistended. Hepatic and splenic margins not palpable. MUSCULOSKELETAL: Extremities without clubbing, cyanosis, or edema. No obvious deformities. NEUROLOGICAL: Awake and alert. No obvious cranial nerve deficits. Motor grossly within normal limits. Five out of 5 muscle strength in the arms and legs. Normal speech. PSYCHIATRIC: Appropriate mood and affect; insight and judgment normal. Assessment and Plan Assessment and Plan imp bilateral lung nodules/infiltrates fever plan o2 as needed antibx per ID Bronchoscopy today Adwoa,Adwoa Wadie MD Oct 23, 2017 16:01
[2017-10-23] MEDS ORDERED: *RESP: ALBUTEROL 2.5 MG/3 ML NEB (PRN) PERIprocedural Use ONLY NEB ONE (16:31)
--- NOTE | 2017-10-23 16:33 | MP ---
cc: Adwoa Orona MD, Wahba W MD DATE OF OPERATION: 10/23/2017 PROCEDURE PERFORMED: Fiberoptic bronchoscopy flexible REASON FOR BRONCHOSCOPY: Bilateral lung nodules, rule out underlying malignancy, rule out underlying inflammatory process. PROCEDURE IN DETAIL: Fiberoptic bronchoscopy performed via endotracheal tube. Lower trachea moderately hyperemic, robby sharp. Diffuse hyperemia throughout the tracheobronchial tree of moderate degree is noted. Excess mucoid secretion, clear whitish in color. Washings obtained from both sides of the tracheobronchial tree for routine TB, fungal cultures as well as cytological exam. Cytologic brush biopsies right lower lobe as well as microbiology brushing right lower lobe were obtained as well, which is somewhat more hyperemic than the rest of the tracheobronchial tree. The procedure was very well tolerated. The patient was transferred to recovery in stable condition. IMPRESSION: 1. Mild moderate tracheobronchitis. 2. No obstruction, no mass lesion. 3. Samples obtained as above. 4. Procedure well tolerated. 5. The patient was transferred to the recovery in stable condition. Adwoa Orona MD WWW/ , 04:12 PM , 04:32 PM
[2017-10-23] MEDS ORDERED: DO NOT ADM ANY ANTICOAGULANT DRUGS PRN (16:36)
--- NOTE | 2017-10-23 17:05 | RADRPT ---
EXAM DATE: 10/23/2017 5:00 PM EDT AGE/SEX: 62 years / Male INDICATIONS: Post bronchoscopy. CLINICAL DATA: This is the patient's subsequent encounter. Patient reports that signs and symptoms h ave been present for 3 days and indicates a pain score of Nonresponsive. MEDICAL/SURGICAL HISTORY: None. None. COMPARISON: [facility], CHEST SINGLE AP, 10/17/2017. . FINDINGS: There is patchy infiltrates throughout the lungs. Clips and wires suggests CABG. The heart is borderl ine enlarged.. CONCLUSION: Diffuse patchy infiltrates bilaterally Electronically signed by: Parker Foster MD 10/23/2017 5:04 PM EDT
--- NOTE | 2017-10-23 17:13 | EKG ---
Date Performed: 10/23/2017 Time Performed: 15:41:56 PTAGE: 62 years EKG: Sinus rhythm MODERATE T-WAVE ABNORMALITY ABNORMAL ECG PREVIOUS TRACING : 12/10/2013 14.01 Since the previous tracing, no significant change noted DOCTOR: Shahriar De Leon Interpretating Date/Time 10/23/2017 17:11:52
--- NOTE | 2017-10-23 17:22 | EKG ---
Date Performed: 10/23/2017 Time Performed: 16:56:58 PTAGE: 62 years EKG: Sinus rhythm WITH SHORT MI INTERVAL NONSPECIFIC ST & T-WAVE ABNORMALITY ABNORMAL ECG PREVIOUS TRACING : 10/23/2017 15.41 Since the previous tracing, no significant change noted DOCTOR: Shahriar De Leon Interpretating Date/Time 10/23/2017 17:21:01
[2017-10-23] MEDS ORDERED: FUROSEMIDE 20 MG/2 ML VIAL ONE (19:05)
--- NOTE | 2017-10-23 19:19 | HHI.PR ---
Subjective Remarks Pt c/o continued severe SOB worse with movement. Pt c/o increased edema from admission. Pt is seen and examined in PACU following his bronchoscopy. Objective Vitals Vital Signs Date Time Temp Pulse Resp B/P (MAP) Pulse Ox O2 Delivery O2 Flow Rate FiO2 10/23/17 17:45 99.3 90 22 116/57 (76) 95 Simple Mask 6 10/23/17 17:30 90 21 118/55 (76) 91 Simple Mask 6 10/23/17 17:15 91 15 118/55 (76) 94 Simple Mask 6 10/23/17 17:00 93 16 120/57 (78) 92 Simple Mask 6 10/23/17 16:45 98 26 124/59 (80) 97 Simple Mask 8 10/23/17 16:30 140 39 106/52 (70) 88 Simple Mask 8 10/23/17 16:28 98.5 139 30 93/54 (67) 90 Simple Mask 8 10/23/17 12:27 99.7 84 22 149/64 (92) 95 10/23/17 11:20 93 Nasal Cannula 5.00 10/23/17 10:07 93 Nasal Cannula 5.00 10/23/17 07:54 98.7 84 22 136/61 (86) 93 10/23/17 06:21 99.6 10/23/17 04:16 102.4 92 20 141/67 (91) 95 10/23/17 00:00 99.6 90 18 156/73 (100) 95 10/22/17 21:40 101.0 10/22/17 20:54 94 5.00 10/22/17 20:00 100.5 93 20 155/72 (99) 93 10/22/17 19:35 5.00 98 10/23/17 10/23/17 10/24/17 15:00 23:00 07:00 Intake Total 0 ml Balance 0 ml Intake Oral 0 ml IV Total 0 ml # Voids 0 Result Diagram: 10/22/17 0925 10/21/17 0855 Imaging Last Impressions Chest X-Ray 10/23/17 0000 Signed Impressions: CONCLUSION: Diffuse patchy infiltrates bilaterally Chest CT 10/17/17 5341 Signed Impressions: CONCLUSION: 1. Diffuse interstitial and groundglass opacities with numerous sub-4 mm rando m nodules sparing the apices and lung bases. Overall pattern is somewhat nonspe cific but likely infectious/inflammatory in etiology. Consider atypical infecti ons. 2. Mediastinal adenopathy which is also nonspecific. Again, favor infectious/i nflammatory etiology. Objective Remarks GENERAL: This is a well-nourished, well-developed patient, in no apparent distress. CARDIOVASCULAR: Regular rate and rhythm without murmurs, gallops, or rubs. RESPIRATORY: diminished x b/l GASTROINTESTINAL: Abdomen soft, non-tender, nondistended. Normal active bowel sounds MUSCULOSKELETAL: Extremities without clubbing, cyanosis, or edema. NEURO: Alert & Oriented x4 to person, place, time, situation. Moves all ext x4 ext: 2+ pitting edema at b/l LEs A/P Problem List: (1) Fever ICD Codes: R50.9 - Fever, unspecified Status: Acute Plan: Pt is a 62 y/o M with CAD, s/p CABG and RA. Pt follows with Rheumatology, Dr. Kaye. Pt has been on methotrexate in the past. More recently he has been treated with salagen. Pt admitted to [facility] on 10/17/17 with c/o fever x 4-5 days. Pt c/o SOB. Pt reports that he has had worsening SOB for at least one year. - Legionella and pneumococcal Ag negative - Influenza Ag negative - Mycoplasma C/W old infection - BC negative - Sputum normal resp amish - Chest CT 10/17/17 1. Diffuse interstitial and groundglass opacities with numerous sub-4 mm random nodules sparing the apices and lung bases. Overall pattern is somewhat nonspecific but likely infectious/inflammatory in etiology. Consider atypical infections. 2. Mediastinal adenopathy which is also nonspecific. Again, favor infectious/ inflammatory etiology. - ESR 140 (10/23) - CRP 27 (10/23) - Quantiferon intermediate - Pt underwent Bronchoscopy (10/23/17) with Dr. Orona. Studies pending. - Case d/w Dr. Orona (10/23/17) - Pt normally takes lasix 40mg PO BID. - Pt has been receiving lasix 40mg PO daily. 10/20 - 10/23 - Pt feels that he is much more edematous than usual and pt is noted to have 2+ pitting edema at his LEs - change lasix to 80mg IV daily, start now (10/23) - repeat BNP in AM - CXR (10/23) - b/l patchy infiltrates essentially unchanged from 10/17/17 - able to visualize costophrenic angles. No pleural effusions. - Cefepime (10/18 - 10/23) - levaquin (10/22 - present) - doxycycline (10/18 - present) - diflucan (10/22 - present) - etiology remains unlear - infectious - pulmonary manifestations of RA? - lung biopsy? - lovenox for DVT prophylaxis - supportive care (2) Pulmonary nodules/lesions, multiple ICD Codes: R91.8 - Other nonspecific abnormal finding of lung field Plan: - see above (3) Rheumatoid arthritis ICD Codes: M06.9 - Rheumatoid arthritis, unspecified Status: Chronic Plan: - methotrexate, stopped prior to admission. (4) Hypertension ICD Codes: I10 - Hypertension Status: Chronic Plan: - stable - norvasc, hydralazine, cozaar (5) Coronary artery disease ICD Codes: I25.10 - Coronary artery disease Status: Chronic Plan: - stable - s/p CABG 1997 - pt follows with Dr. Damon - abel CARDONA Problem Qualifiers (1) Rheumatoid arthritis: (2) Hypertension: Qualified Codes: I10 - Essential (primary) hypertension (3) Coronary artery disease: Qualified Codes: I25.810 - Atherosclerosis of coronary artery bypass graft(s) without angina pectoris Ronak Hopkins DO Oct 23, 2017 19:19
[2017-10-23] MEDS ORDERED: FUROSEMIDE 20 MG/2 ML VIAL IV PUSH ONE (19:30)
[2017-10-23] MEDS ORDERED: FUROSEMIDE 40 MG/4 ML VIAL IV PUSH ONE (20:00)
[2017-10-23] MEDS: ENOXAPARIN SODIUM 40 MG/0.4 ML SYRINGE SQ SCH (20:00)
[2017-10-23] MEDS ORDERED: FUROSEMIDE 100 MG/10 ML VIAL ONE (20:51)
[2017-10-24] VITALS (14 sets, daily range): BP systolic 140–153; BP diastolic 60–67; PULSE 84–94; RESP 17–31; TEMP 98.4–99.4; O2SAT 92–97
[2017-10-24 03:50] LABS: C PNEUMO IGA <1:16 (<1:16); C PNEUMO IGM <1:10 (<1:10); C PNEUMO INTERPRETATION PAST INFECTION
[2017-10-24 05:17] LABS: AUTOMATED NEUTROPHIL # 10.9 TH/MM3 (1.8-7.7); EOSINOPHIL # 0.2 TH/MM3 (0-0.4); EOSINOPHIL % 1.8 % (0.0-4.0); HEMATOCRIT 28.6 % (39.0-51.0); HEMOGLOBIN 9.1 GM/DL (13.0-17.0); LYMPH % 5.2 % (9.0-44.0); LYMPHOCYTE # 0.7 TH/MM3 (1.0-4.8); MEAN CORPUSCULAR HEMOGLOBIN 26.2 PG (27.0-34.0); MEAN PLATELET VOLUME 7.9 FL (7.0-11.0); MONO % 10.3 % (0.0-8.0); MONOCYTE # 1.4 TH/MM3 (0-0.9); NEUT % 82.7 % (16.0-70.0); PLATELET COUNT 456 TH/MM3 (150-450); RED BLOOD COUNT 3.48 MIL/MM3 (4.50-5.90); RED CELL DISTRIBUTION WIDTH 18.7 % (11.6-17.2); WHITE BLOOD COUNT 13.2 TH/MM3 (4.0-11.0)
[2017-10-24 05:41] LABS: BICARBONATE 22.8 MEQ/L (21.0-32.0); CALCIUM 9.2 MG/DL (8.5-10.1); CREATININE 1.2 MG/DL (0.60-1.30)
[2017-10-24] MEDS: GEMFIBROZIL 600 MG TAB PO SCH ×3 (07:46→21:45)
--- NOTE | 2017-10-24 07:59 | PD.CONS ---
HPI Consult Requested By Primary Care Physician Dmitri Rivas MD History of Present Illness 62-year-old male with a past medical history of CAD and CABG 1997, HTN, RA. The patient initially presented with high fevers and cough with associated shortness of breath. The patient had chest imaging which showed diffuse interstitial and groundglass opacities in the lung bases with mediastinal adenopathy. The patient has been undergoing workup with ID and pulmonology. The patient had bronchoscopy yesterday and reportedly had some tachycardia afterwards and for this we are consulted. The patient was still sedated at the time, and does not recall any symptoms with the fast heart rate. There is a short rhythm strip from postop that shows a regular narrow complex tachycardia with rate around 140. EKG at that time showed NSR with rate 91. Telemetry overnight shows occasional PVCs and couplets and bigeminy. The patient denies any recent symptoms consistent with his previous angina. He denies any recent palpitations. He has chronic lower extremity swelling and has been on Lasix for the past year and a half. His chief complaint is back and stiffness from lying in bed. (Mark Diaz) Review of Systems Negative except as stated in the HPI (Mark Diaz) Past Family Social History Allergies: Coded Allergies: Influenza Virus Vaccines (Unverified Allergy, Severe, SITE SWELLING, ) Past Medical History Rheumatoid arthritis Coronary artery disease Hypertension Past Surgical History CABG 1997 Tonsillectomy Reported Medications Reported Meds & Active Scripts Active Oxygen (O2) Device Liter JUVENCIO.CANULA CONTINUOUS PRN Oxygen Concentrator Portable Gaseous 2 L/min via Nasal Canula Continuous For 99 months Ceftin (Cefuroxime Axetil) 250 Mg Tab 250 Mg PO BID 10 Days take 2 tablets twice daily Doxycycline Hyclate 100 Mg Cap 100 Mg PO BID 10 Days Reported Amlodipine (Amlodipine Besylate) 10 Mg Tab 10 Mg PO DAILY Gemfibrozil 600 Mg Tab 600 Mg PO BIDAC Take 30 minutes prior to breakfast and dinner. Melatonin 10 Mg-1 Mg Tab 300 Mcg PO HS PRN Methotrexate 2.5 Mg Tab 20 Mg PO Q7D Losartan (Losartan Potassium) 100 Mg Tab 100 Mg PO DAILY Aspirin 325 Mg Tab 325 Mg PO DAILY B12 (Cyanocobalamin) 1,000 Mcg Tab 1 Tab PO BID Furosemide 40 Mg Tab 40 Mg PO BID Cholestoff (Plant Sterols and Stanols) 450 Mg Tab 1 Tab PO BID Ferrous Sulfate 325 Mg (65 Mg Iron) Tablet 325 Mg PO DAILY Hydralazine (Hydralazine HCl) 100 Mg Tab 100 Mg PO BID Take with meals Folic Acid 0.4 Mg Tab 1 Mg PO DAILY [Fish oil] 1,000 Mg PO BID Coq-10 (Coenzyme Q10 (Ubidecarenone)) 50 Mg Cap 1 Cap PO BID Active Ordered Medications Current Medications Medications (Trade) Dose Ordered Sig/Gonzalo Route Start Time Stop Time Status Last Admin Sodium Chloride 1,000 ml @ 83 mls/hr Q12H3M IV 10/17/17 20:00 10/23/17 08:08 (Tylenol) 650 mg Q4H PRN PO 10/17/17 19:30 10/23/17 13:42 (Lovenox Inj) 40 mg Q24H SQ 10/17/17 20:00 10/23/17 20:00 (Norvasc) 10 mg DAILY PO 10/18/17 09:00 10/23/17 08:06 (Aspirin) 325 mg DAILY PO 10/18/17 09:00 10/23/17 08:07 (Ferrous Sulfate) 325 mg DAILY PO 10/18/17 09:00 10/23/17 08:07 (Folate) 1 mg DAILY PO 10/18/17 09:00 10/23/17 08:06 (Lopid) 600 mg BIDAC PO 10/18/17 07:00 10/22/17 16:18 (Apresoline) 100 mg BID PO 10/17/17 21:00 10/23/17 21:00 (Cozaar) 100 mg DAILY PO 10/18/17 09:00 10/23/17 08:06 (Vitamin B12) 1,000 mcg BID PO 10/18/17 21:05 10/23/17 21:00 (KCl) 10 meq DAILY PO 10/20/17 09:00 10/23/17 08:07 (Vibramycin) 100 mg BID PO 10/21/17 09:00 10/23/17 21:00 (Diflucan) 200 mg DAILY PO 10/22/17 09:00 10/23/17 08:07 Dextrose/Sodium Chloride 1,000 ml @ 0 mls/hr Q0M IV 10/22/17 08:52 (Lidocaine Pf 4% Neb) 3 ml PICKLE CUTTER NEB 10/22/17 09:00 10/26/17 08:59 Lactated Ringer's 1,000 ml @ 30 mls/hr Q24H PRN IV 10/22/17 15:00 10/25/17 14:59 Sodium Chloride 500 ml @ 30 mls/hr [id number] PRN IV 10/22/17 15:00 10/25/17 14:59 (Lopressor) 25 mg PICKLE CUTTER PRN PO 10/22/17 15:00 10/25/17 14:59 (Betadine 5% Antisepsis Kit) 1 applic PICKLE CUTTER PRN EACH NARE 10/22/17 15:00 10/25/17 14:59 (Chlorhexidine 2% Cloth) 3 pack PICKLE CUTTER PRN TOPICAL 10/22/17 15:00 10/25/17 14:59 Levofloxacin/ Dextrose 150 ml @ 100 mls/hr Q24H IV 10/23/17 11:00 10/23/17 13:42 ([facility] [place] ALL NURSING DEPARTME... UNSCH PRN .XX 10/23/17 16:36 10/24/17 16:35 (Lasix Inj) 80 mg DAILY IV PUSH 10/24/17 09:00 Family History No h/o RA Social History He does not smoke currently, but he says he smoked 1-1/2 packs a day for 18 years. He stopped 20 years ago when he had his open heart surgery. He does not consume alcohol on a regular basis. (Mark Diaz) Physical Exam Vital Signs Vital Signs Date Time Temp Pulse Resp B/P (MAP) Pulse Ox O2 Delivery O2 Flow Rate FiO2 10/24/17 07:00 97 Simple Mask 6.00 10/24/17 06:00 85 10/24/17 04:00 84 10/24/17 04:00 99.1 85 26 140/63 (88) 95 10/24/17 02:00 90 10/24/17 00:00 90 10/24/17 00:00 99.0 94 18 142/60 (87) 93 10/23/17 22:00 96 Simple Mask 8.00 10/23/17 22:00 93 10/23/17 22:00 99.0 93 26 146/65 (92) 96 10/23/17 21:26 97.6 88 22 138/78 (98) 95 Simple Mask 6 10/23/17 20:45 94 22 116/58 (77) 95 Simple Mask 6 10/23/17 19:45 93 22 122/56 (78) 95 Simple Mask 6 10/23/17 17:45 99.3 90 22 116/57 (76) 95 Simple Mask 6 10/23/17 17:30 90 21 118/55 (76) 91 Simple Mask 6 10/23/17 17:15 91 15 118/55 (76) 94 Simple Mask 6 10/23/17 17:00 93 16 120/57 (78) 92 Simple Mask 6 10/23/17 16:45 98 26 124/59 (80) 97 Simple Mask 8 10/23/17 16:30 140 39 106/52 (70) 88 Simple Mask 8 10/23/17 16:28 98.5 139 30 93/54 (67) 90 Simple Mask 8 10/23/17 12:27 99.7 84 22 149/64 (92) 95 10/23/17 11:20 93 Nasal Cannula 5.00 10/23/17 10:07 93 Nasal Cannula 5.00 10/23/17 07:54 98.7 84 22 136/61 (86) 93 Physical Exam GENERAL: Well-developed well-nourished. Morbidly obese. Appears uncomfortable lying in bed, on simple mask, appears in no acute distress. NECK: No carotid bruits. No JVD. CARDIOVASCULAR: Regular rate and rhythm. No murmur appreciated. RESPIRATORY: No accessory muscle use. Clear to auscultation. Breath sounds equal bilaterally. MUSCULOSKELETAL: No clubbing or cyanosis. 3+ lower extremity edema. NEUROLOGICAL: Awake and alert. Normal speech. Laboratory Laboratory Tests Test 10/23/17 07:51 10/23/17 11:20 10/24/17 03:39 10/24/17 05:00 M. tuberculosis Complex DNA (PCR) NOT DETECTED Erythrocyte Sedimentation Rate GREATER THAN 140 Lactate Dehydrogenase 169 C-Reactive Protein 27.00 White Blood Count 13.2 Red Blood Count 3.48 Hemoglobin 9.1 Hematocrit 28.6 Mean Corpuscular Volume 82.0 Mean Corpuscular Hemoglobin 26.2 Mean Corpuscular Hemoglobin Concent 32.0 Red Cell Distribution Width 18.7 Platelet Count 456 Mean Platelet Volume 7.9 Neutrophils (%) (Auto) 82.7 Lymphocytes (%) (Auto) 5.2 Monocytes (%) (Auto) 10.3 Eosinophils (%) (Auto) 1.8 Basophils (%) (Auto) 0.0 Neutrophils # (Auto) 10.9 Lymphocytes # (Auto) 0.7 Monocytes # (Auto) 1.4 Eosinophils # (Auto) 0.2 Basophils # (Auto) 0.0 CBC Comment DIFF FINAL Differential Comment Blood Urea Nitrogen 23 Creatinine 1.20 Random Glucose 104 Calcium Level 9.2 Magnesium Level 2.0 Sodium Level 139 Potassium Level 4.2 Chloride Level 103 Carbon Dioxide Level 22.8 Anion Gap 13 Estimat Glomerular Filtration Rate 62 Date/Time Source Procedure Growth Status 10/21/17 08:55 Blood Peripheral Aerobic Blood Culture - Preliminary NO GROWTH IN 2 DAYS Resulted 10/21/17 08:55 Blood Peripheral Anaerobic Blood Culture - Preliminary NO GROWTH IN 2 DAYS Resulted 10/23/17 16:05 Bronchial Washings Other Fungal Smear Pending Received 10/23/17 16:05 Bronchial Washings Other Fungal Culture Pending Received 10/18/17 05:10 Urine Random Urine Legionella Antigen - Final PRESUMPTIVE NEGATIVE FOR LEGIONELLA P... Complete 10/18/17 05:10 Urine Random Urine Streptococcus pneumoniae Antigen (M - Final PRESUMPTIVE NEGATIVE FOR STREPTOCOCCU... Complete (Mark Diaz) Result Diagram: 10/24/17 0339 10/24/17 0339 Imaging Last Impressions Chest X-Ray 10/23/17 0000 Signed Impressions: CONCLUSION: Diffuse patchy infiltrates bilaterally Chest CT 10/17/17 1751 Signed Impressions: CONCLUSION: 1. Diffuse interstitial and groundglass opacities with numerous sub-4 mm rando m nodules sparing the apices and lung bases. Overall pattern is somewhat nonspe cific but likely infectious/inflammatory in etiology. Consider atypical infecti ons. 2. Mediastinal adenopathy which is also nonspecific. Again, favor infectious/i nflammatory etiology. (Mark Diaz) Assessment and Plan Assessment and Plan 62-year-old male with a past medical history of CAD and CABG 1997, HTN, RA. The patient initially presented with high fevers and cough with associated shortness of breath. The patient had chest imaging which showed diffuse interstitial and groundglass opacities in the lung bases with mediastinal adenopathy. The patient has been undergoing workup with ID and pulmonology. The patient had bronchoscopy yesterday and reportedly had some tachycardia afterwards and for this we are consulted. The patient was still sedated at the time, and does not recall any symptoms with the fast heart rate. There is a short rhythm strip from postop that shows a short run of regular narrow complex tachycardia. EKG at that time showed NSR with rate 91. Postop tachycardia: Short run of regular narrow complex tachycardia. No further workup indicated at this time. Dyspnea: Symptoms appear mostly due to underlying pulmonary process, ID and pulmonology on board. Echocardiogram with normal systolic function, mild-mod , moderate pulmonary hypertension. Maybe some right heart involvement with pulmonary hypertension, continue Lasix, will increase to 40 mg IV 3 times daily for now. History of CAD: Stable. No documented history of TIA/CVA, can likely decrease aspirin to 81 mg. Statin intolerant. Discussed Condition With Patient, RN, Dr. Lazo (Mark Diaz) Assessment and Plan Agree with above. regular narrow complex tachycardia with artifact on rhythm strip printout. Sinus tachycardia vs atrial tachycardia likely. No further evaluation or management required. PHT with RHF, currently hypervolemic during his stay. Would minimize IVF and change Lasix to 40mg iv tid with goal net I/O neg 2L daily until bump in Cr, then resume home diuretic regimen will sign off. contact us back with any further questions. (Elmo Lazo DO) Mark Diaz Oct 24, 2017 07:59 Elmo Lazo DO Oct 24, 2017 13:15
[2017-10-24] MEDS ORDERED: FUROSEMIDE 100 MG/10 ML VIAL IV PUSH SCH ×2 (08:00→09:00)
[2017-10-24] MEDS: ASPIRIN 325 MG TAB PO SCH (08:05)
[2017-10-24] MEDS: CYANOCOBALAMIN 1,000 MCG TAB PO SCH ×2 (08:05→21:00)
[2017-10-24] MEDS: POTASSIUM CHLORIDE 10 MEQ CONTROLLED RELEASE TAB PO SCH (08:05)
[2017-10-24] MEDS: FOLIC ACID 1 MG TAB PO SCH (08:05)
[2017-10-24] MEDS: LOSARTAN 50 MG TAB PO SCH (08:05)
[2017-10-24] MEDS: hydrALAZINE HCL 50 MG TAB PO SCH ×2 (08:05→21:44)
[2017-10-24] MEDS: FERROUS SULFATE 325 MG (65 MG ELEMENTAL IRON) TAB PO SCH (08:05)
[2017-10-24] MEDS: FUROSEMIDE 40 MG/4 ML VIAL IV PUSH SCH ×3 (08:46→17:13)
[2017-10-24] MEDS: FLUCONAZOLE 200 MG TAB PO SCH (08:47)
[2017-10-24] MEDS: ASPIRIN EC 81 MG TABEC PO SCH (08:47)
[2017-10-24] MEDS: DOXYCYCLINE HYCLATE 100 MG CAP PO SCH ×2 (08:49→21:45)
--- NOTE | 2017-10-24 09:19 | RADRPT ---
EXAM DATE: 10/24/2017 8:58 AM EDT AGE/SEX: 62 years / Male INDICATIONS: Short of breath. CLINICAL DATA: This is the patient's subsequent encounter. Patient reports that signs and symptoms h ave been present for 4 - 6 days and indicates a pain score of 0/10. MEDICAL/SURGICAL HISTORY: None. CABG. COMPARISON: [facility], CHEST SINGLE AP, 10/23/2017. [facility], CT THORAX W CONTRAST, 10/17/2017. [facility], CHEST S JOSE ANGEL AP, 10/17/2017. . FINDINGS: Portable AP view of the chest demonstrate a normal-sized cardiac silhouette in this patient post medi an sternotomy and CABG. Lungs are underinflated. There is patchy somewhat nodular airspace consolidat ion bilaterally, left slightly greater than right. It does not appear significantly changed from yest erday's examination. No pleural effusion or pneumothorax is identified. Bones and soft tissues demons trate no acute finding. CONCLUSION: Stable chest x-ray with patchy airspace consolidation bilaterally, left slightly greater than right. Electronically signed by: Taz Ryder MD 10/24/2017 9:18 AM EDT
--- NOTE | 2017-10-24 09:24 | RSPPFT ---
DATE OF PROCEDURE: 10/18/17 COMMENTS: Spirometry with FVC of 2.0, FEV1 of 1.7, FEV1/FVC ratio 85%. IMPRESSION: 1. Decreased flow rates. 2. No evidence of airways obstruction. 3. Possible airways restriction. 4. If clinically warranted, lung volumes may be helpful
[2017-10-24] MEDS: LEVOFLOXACIN 750 MG PREMIX INJ 150 ML IV SCH (11:54)
--- NOTE | 2017-10-24 13:53 | HHI.PR ---
Subjective Remarks No new complaints/concerns Objective Vitals Vital Signs Date Time Temp Pulse Resp B/P (MAP) Pulse Ox O2 Delivery O2 Flow Rate FiO2 10/24/17 12:00 98.6 88 17 141/65 (90) 94 10/24/17 12:00 88 10/24/17 10:01 95 Nasal Cannula 5.00 10/24/17 10:00 Simple Mask 10/24/17 10:00 92 10/24/17 08:00 98.4 90 25 145/65 (91) 93 10/24/17 08:00 90 10/24/17 07:00 97 Simple Mask 6.00 10/24/17 06:00 85 10/24/17 04:00 84 10/24/17 04:00 99.1 85 26 140/63 (88) 95 10/24/17 02:00 90 10/24/17 00:00 90 10/24/17 00:00 99.0 94 18 142/60 (87) 93 10/23/17 22:00 96 Simple Mask 8.00 10/23/17 22:00 93 10/23/17 22:00 99.0 93 26 146/65 (92) 96 10/23/17 21:26 97.6 88 22 138/78 (98) 95 Simple Mask 6 10/23/17 20:45 94 22 116/58 (77) 95 Simple Mask 6 10/23/17 19:45 93 22 122/56 (78) 95 Simple Mask 6 10/23/17 17:45 99.3 90 22 116/57 (76) 95 Simple Mask 6 10/23/17 17:30 90 21 118/55 (76) 91 Simple Mask 6 10/23/17 17:15 91 15 118/55 (76) 94 Simple Mask 6 10/23/17 17:00 93 16 120/57 (78) 92 Simple Mask 6 10/23/17 16:45 98 26 124/59 (80) 97 Simple Mask 8 10/23/17 16:30 140 39 106/52 (70) 88 Simple Mask 8 10/23/17 16:28 98.5 139 30 93/54 (67) 90 Simple Mask 8 Result Diagram: 10/24/17 0339 10/24/17 0339 Other Results Laboratory Tests Test 10/22/17 09:25 6/5/18 07:51 10/23/17 11:20 10/24/17 03:39 White Blood Count 12.1 TH/MM3 13.2 TH/MM3 Red Blood Count 3.55 MIL/MM3 3.48 MIL/MM3 Hemoglobin 9.8 GM/DL 9.1 GM/DL Hematocrit 29.4 % 28.6 % Mean Corpuscular Volume 82.8 FL 82.0 FL Mean Corpuscular Hemoglobin 27.7 PG 26.2 PG Mean Corpuscular Hemoglobin Concent 33.5 % 32.0 % Red Cell Distribution Width 18.2 % 18.7 % Platelet Count 457 TH/MM3 456 TH/MM3 Mean Platelet Volume 7.9 FL 7.9 FL Neutrophils (%) (Auto) 82.3 % 82.7 % Lymphocytes (%) (Auto) 5.0 % 5.2 % Monocytes (%) (Auto) 10.1 % 10.3 % Eosinophils (%) (Auto) 2.2 % 1.8 % Basophils (%) (Auto) 0.4 % 0.0 % Neutrophils # (Auto) 10.0 TH/MM3 10.9 TH/MM3 Lymphocytes # (Auto) 0.6 TH/MM3 0.7 TH/MM3 Monocytes # (Auto) 1.2 TH/MM3 1.4 TH/MM3 Eosinophils # (Auto) 0.3 TH/MM3 0.2 TH/MM3 Basophils # (Auto) 0.0 TH/MM3 0.0 TH/MM3 CBC Comment AUTO DIFF DIFF FINAL Differential Comment AUTO DIFF CONFIRMED Platelet Estimate HIGH Platelet Morphology Comment NORMAL Prothrombin Time 12.0 SEC Prothromb Time International Ratio 1.2 RATIO Activated Partial Thromboplast Time 30.1 SEC M. tuberculosis Complex DNA (PCR) NOT DETECTED Erythrocyte Sedimentation Rate GREATER THAN 140 mm/hr Lactate Dehydrogenase 169 U/L C-Reactive Protein 27.00 MG/DL Blood Urea Nitrogen 23 MG/DL Creatinine 1.20 MG/DL Random Glucose 104 MG/DL Calcium Level 9.2 MG/DL Magnesium Level 2.0 MG/DL Sodium Level 139 MEQ/L Potassium Level 4.2 MEQ/L Chloride Level 103 MEQ/L Carbon Dioxide Level 22.8 MEQ/L Anion Gap 13 MEQ/L Estimat Glomerular Filtration Rate 62 ML/MIN B-Type Natriuretic Peptide 120 PG/ML Test 10/24/17 05:00 Nasal Screen MRSA (PCR) MRSA NOT DETECTED Imaging Last Impressions Chest X-Ray 10/23/17 0000 Signed Impressions: CONCLUSION: Diffuse patchy infiltrates bilaterally Chest CT 10/17/17 1751 Signed Impressions: CONCLUSION: 1. Diffuse interstitial and groundglass opacities with numerous sub-4 mm rando m nodules sparing the apices and lung bases. Overall pattern is somewhat nonspe cific but likely infectious/inflammatory in etiology. Consider atypical infecti ons. 2. Mediastinal adenopathy which is also nonspecific. Again, favor infectious/i nflammatory etiology. Objective Remarks GENERAL: This is a well-nourished, well-developed patient, in no apparent distress. CARDIOVASCULAR: Regular rate and rhythm RESPIRATORY: diminished bilateral bases- marked improvement from yesterday GASTROINTESTINAL: Abdomen soft, non-tender, nondistended. Normal active bowel sounds MUSCULOSKELETAL: 1-2+ pitting edema at BLEs NEURO: Alert & Oriented x4 to person, place, time, situation. Moves all ext x4 Procedures Fiberoptic bronchoscopy flexible 10/23/[address] Orona A/P Problem List: (1) Fever ICD Codes: R50.9 - Fever, unspecified Status: Acute Plan: Pt is a 62 y/o M with CAD, s/p CABG and RA. Pt follows with Rheumatology, Dr. Kaye. Pt has been on methotrexate in the past. More recently he has been treated with salagen. Pt admitted to [facility] on 10/17/17 with c/o fever x 4-5 days. Pt c/o SOB. Pt reports that he has had worsening SOB for at least one year. - Legionella and pneumococcal Ag negative - Influenza Ag negative - Mycoplasma C/W old infection - BC negative - Sputum normal resp amish - Chest CT 10/17/17 1. Diffuse interstitial and groundglass opacities with numerous sub-4 mm random nodules sparing the apices and lung bases. Overall pattern is somewhat nonspecific but likely infectious/inflammatory in etiology. Consider atypical infections. 2. Mediastinal adenopathy which is also nonspecific. Again, favor infectious/ inflammatory etiology. - ESR 140 (10/23) - CRP 27 (10/23) - Quantiferon intermediate - Pt underwent Bronchoscopy (10/23/17) with Dr. Orona. Studies pending. - Case d/w Dr. Orona (10/23/17) - Pt normally takes lasix 40mg PO BID. - Pt has been receiving lasix 40mg PO daily. 10/20 - 10/23 - Pt feels that he is much more edematous than usual and pt is noted to have 2+ pitting edema at his LEs - cardiology changed lasix to 40 mg TID - repeat BNP in AM - CXR (10/23) - b/l patchy infiltrates essentially unchanged from 10/17/17 - able to visualize costophrenic angles. No pleural effusions. - ID also following - Cefepime (10/18 - 10/23) - levaquin (10/23 - present) - doxycycline (10/18 - present) - diflucan (10/21 - present) - etiology remains unclear - infectious - pulmonary manifestations of RA? - lung biopsy? - lovenox for DVT prophylaxis - supportive care (2) Pulmonary nodules/lesions, multiple ICD Codes: R91.8 - Other nonspecific abnormal finding of lung field Plan: - see above (3) Rheumatoid arthritis ICD Codes: M06.9 - Rheumatoid arthritis, unspecified Status: Chronic Plan: - methotrexate, stopped prior to admission. (4) Hypertension ICD Codes: I10 - Hypertension Status: Chronic Plan: - stable - norvasc, hydralazine, cozaar (5) Coronary artery disease ICD Codes: I25.10 - Coronary artery disease Status: Chronic Plan: - stable - s/p CABG 1997 - pt follows with abel Victoria ASA Assessment and Plan Patient examined. Assessment and plan formulated with Divya Braswell PA-C. I agree with the above. Problem Qualifiers (1) Rheumatoid arthritis: (2) Hypertension: Qualified Codes: I10 - Essential (primary) hypertension (3) Coronary artery disease: Qualified Codes: I25.810 - Atherosclerosis of coronary artery bypass graft(s) without angina pectoris Divya Braswell Oct 24, 2017 13:53 Ronak Hopkins DO Oct 25, 2017 16:39
--- NOTE | 2017-10-24 17:02 | HHI.PR ---
Subjective Remarks alert no distress POST BRONCHOSCOPY Objective Vital Signs Date Time Temp Pulse Resp B/P (MAP) Pulse Ox O2 Delivery O2 Flow Rate FiO2 10/24/17 14:00 87 10/24/17 12:00 98.6 88 17 141/65 (90) 94 10/24/17 12:00 88 10/24/17 10:01 95 Nasal Cannula 5.00 10/24/17 10:00 Simple Mask 10/24/17 10:00 92 10/24/17 08:00 98.4 90 25 145/65 (91) 93 10/24/17 08:00 90 10/24/17 07:00 97 Simple Mask 6.00 10/24/17 06:00 85 10/24/17 04:00 84 10/24/17 04:00 99.1 85 26 140/63 (88) 95 10/24/17 02:00 90 10/24/17 00:00 90 10/24/17 00:00 99.0 94 18 142/60 (87) 93 10/23/17 22:00 96 Simple Mask 8.00 10/23/17 22:00 93 10/23/17 22:00 99.0 93 26 146/65 (92) 96 10/23/17 21:26 97.6 88 22 138/78 (98) 95 Simple Mask 6 10/23/17 20:45 94 22 116/58 (77) 95 Simple Mask 6 10/23/17 19:45 93 22 122/56 (78) 95 Simple Mask 6 10/23/17 17:45 99.3 90 22 116/57 (76) 95 Simple Mask 6 10/23/17 17:30 90 21 118/55 (76) 91 Simple Mask 6 10/23/17 17:15 91 15 118/55 (76) 94 Simple Mask 6 I/O 10/23/17 10/23/17 10/23/17 10/24/17 10/24/17 10/24/17 07:00 15:00 23:00 07:00 15:00 23:00 Intake Total 0 ml Output Total 900 ml 1275 ml Balance -900 ml -1275 ml Intake Oral 0 ml IV Total 0 ml Output Urine Total 900 ml 1275 ml # Voids 3 3 Result Diagram: 10/24/17 0339 10/24/17 0339 Objective Remarks GENERAL: SKIN: Warm and dry. HEAD: Atraumatic. Normocephalic. EYES: Pupils equal and round. No scleral icterus. No injection or drainage. ENT: No nasal bleeding or discharge. Mucous membranes pink and moist. NECK: Trachea midline. No JVD. CARDIOVASCULAR: Regular rate and rhythm. RESPIRATORY: No accessory muscle use. Clear to auscultation. Breath sounds equal bilaterally. GASTROINTESTINAL: Abdomen soft, non-tender, nondistended. Hepatic and splenic margins not palpable. MUSCULOSKELETAL: Extremities without clubbing, cyanosis, or edema. No obvious deformities. NEUROLOGICAL: Awake and alert. No obvious cranial nerve deficits. Motor grossly within normal limits. Five out of 5 muscle strength in the arms and legs. Normal speech. PSYCHIATRIC: Appropriate mood and affect; insight and judgment normal. Assessment and Plan Assessment and Plan imp bilateral lung nodules/infiltrates fever plan o2 as needed antibx per ID CHECK BRONCHOSCOPY RESULTS Adwoa Orona MD Oct 24, 2017 17:01
[2017-10-24] MEDS: ENOXAPARIN SODIUM 40 MG/0.4 ML SYRINGE SQ SCH (20:00)
[2017-10-25] VITALS (13 sets, daily range): BP systolic 135–162; BP diastolic 64–74; PULSE 84–95; RESP 11–29; TEMP 98.4–98.8; O2SAT 90–99
[2017-10-25] MEDS: FOLIC ACID 1 MG TAB PO SCH (09:06)
[2017-10-25] MEDS: POTASSIUM CHLORIDE 10 MEQ CONTROLLED RELEASE TAB PO SCH (09:06)
[2017-10-25] MEDS: FERROUS SULFATE 325 MG (65 MG ELEMENTAL IRON) TAB PO SCH (09:06)
[2017-10-25] MEDS: DOXYCYCLINE HYCLATE 100 MG CAP PO SCH (09:06)
[2017-10-25] MEDS: FUROSEMIDE 40 MG/4 ML VIAL IV PUSH SCH ×3 (09:06→17:53)
[2017-10-25] MEDS: FLUCONAZOLE 200 MG TAB PO SCH (09:06)
[2017-10-25] MEDS: LOSARTAN 50 MG TAB PO SCH (09:07)
[2017-10-25] MEDS: CYANOCOBALAMIN 1,000 MCG TAB PO SCH ×2 (09:07→21:03)
--- NOTE | 2017-10-25 10:11 | RADRPT ---
EXAM DATE: 10/25/2017 10:04 AM EDT AGE/SEX: 62 years / Male INDICATIONS: Fever, sore throat. CLINICAL DATA: This is the patient's initial encounter. Patient reports that signs and symptoms have been present for 3 days and indicates a pain score of 8/10. MEDICAL/SURGICAL HISTORY: Cardiovascular disease. CABG. COMPARISON: [facility] – [place], CHEST SINGLE AP, 10/24/2017. . FINDINGS: Slight improvement in aeration with decrease in confluence of bilateral infiltrates. No significant e ffusion. Cardiac contours are stable. CONCLUSION: Slight improvement in aeration. Electronically signed by: Taz Wilson MD 10/25/2017 10:09 AM EDT
[2017-10-25] MEDS: hydrALAZINE HCL 50 MG TAB PO SCH ×2 (10:38→21:03)
[2017-10-25] MEDS: ASPIRIN EC 81 MG TABEC PO SCH (10:38)
[2017-10-25] MEDS: LEVOFLOXACIN 750 MG PREMIX INJ 150 ML IV SCH (10:39)
[2017-10-25 12:49] LABS: AUTOMATED NEUTROPHIL # 9.5 TH/MM3 (1.8-7.7); BASOPHIL # 0.1 TH/MM3 (0-0.2); BASOPHIL % 0.9 % (0.0-2.0); EOSINOPHIL # 0.4 TH/MM3 (0-0.4); EOSINOPHIL % 3.4 % (0.0-4.0); HEMATOCRIT 31.6 % (39.0-51.0); HEMOGLOBIN 10.2 GM/DL (13.0-17.0); LYMPH % 6.6 % (9.0-44.0); LYMPHOCYTE # 0.8 TH/MM3 (1.0-4.8); MEAN CELL VOLUME 82.3 FL (80.0-100.0); MEAN CORPUSCULAR HEMOGLOBIN 26.6 PG (27.0-34.0); MEAN CORPUSCULAR HGB CONC 32.4 % (32.0-36.0); MEAN PLATELET VOLUME 7.9 FL (7.0-11.0); MONO % 10.4 % (0.0-8.0); MONOCYTE # 1.3 TH/MM3 (0-0.9); NEUT % 78.7 % (16.0-70.0); PLATELET COUNT 473 TH/MM3 (150-450); RED BLOOD COUNT 3.84 MIL/MM3 (4.50-5.90); RED CELL DISTRIBUTION WIDTH 19.5 % (11.6-17.2); WHITE BLOOD COUNT 12.1 TH/MM3 (4.0-11.0)
--- NOTE | 2017-10-25 12:58 | HHI.IDPN ---
Subjective Subjective Remarks ID COVERAGE Patient with known Rheumatoid arthritis has been on Methotrexate for a while, given Salagen and was taken off, admitted for 4-5 day Hx of fevers. he has had problem with SOB for years, but has been worse for >1 year. 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 Has not had any pulmonary evaluation Notes reviewed Temps better Bronch done Bronch C/S pending Cytology pending Last CXR stable infiltrates Legionella and pneumococcal Ag negative Influenza Ag negative Mycoplasma C/W old infection Chlamydia pneumonia C/W old infection Bartonella Negative ESR >140 CRP 27 LDH normal BC negative Sputum normal resp amish SOB stable C/O some pain with swallowing No CP No N/V No diarrhea Voiding ok Has dog and cat at home Born in [place], has been here in [place] x .30 years Lives at home with and grown daughter No exposure to sick children or person Antibiotics Current Medications Medications (Trade) Dose Ordered Sig/Gonzalo Route Start Time Stop Time Status Last Admin (Tylenol) 650 mg Q4H PRN PO 10/17/17 19:30 10/23/17 13:42 (Lovenox Inj) 40 mg Q24H SQ 10/17/17 20:00 10/24/17 20:00 (Norvasc) 10 mg DAILY PO 10/18/17 09:00 10/25/17 09:07 (Ferrous Sulfate) 325 mg DAILY PO 10/18/17 09:00 10/25/17 09:06 (Folate) 1 mg DAILY PO 10/18/17 09:00 10/25/17 09:06 (Lopid) 600 mg BIDAC PO 10/18/17 07:00 10/24/17 21:45 (Apresoline) 100 mg BID PO 10/17/17 21:00 10/25/17 10:38 (Cozaar) 100 mg DAILY PO 10/18/17 09:00 10/25/17 09:07 (Vitamin B12) 1,000 mcg BID PO 10/18/17 21:05 10/25/17 09:07 (KCl) 10 meq DAILY PO 10/20/17 09:00 10/25/17 09:06 (Vibramycin) 100 mg BID PO 10/21/17 09:00 10/25/17 09:06 (Diflucan) 200 mg DAILY PO 10/22/17 09:00 10/25/17 09:06 (Lidocaine Pf 4% Neb) 3 ml CURRICULUM COACH NEB 10/22/17 09:00 10/26/17 08:59 Sodium Chloride 500 ml @ 30 mls/hr [id number] PRN IV 10/22/17 15:00 10/25/17 14:59 (Lopressor) 25 mg CURRICULUM COACH PRN PO 10/22/17 15:00 10/25/17 14:59 (Betadine 5% Antisepsis Kit) 1 applic CURRICULUM COACH PRN EACH NARE 10/22/17 15:00 10/25/17 14:59 (Chlorhexidine 2% Cloth) 3 pack CURRICULUM COACH PRN TOPICAL 10/22/17 15:00 10/25/17 14:59 Levofloxacin/ Dextrose 150 ml @ 100 mls/hr Q24H IV 10/23/17 11:00 10/25/17 10:39 (Ecotrin Ec) 81 mg DAILY PO 10/24/17 09:00 10/25/17 10:38 (Lasix Inj) 40 mg TID IV PUSH 10/24/17 09:00 10/25/17 09:06 Lines PIV no evidence of infection Past Medical History HTN CAD RA Hyperlipidemia Past Surgical History CABG Tonsillectomy Allergies: Coded Allergies: Influenza Virus Vaccines (Unverified Allergy, Severe, SITE SWELLING, ) [id number] Reductase Inhibitor (Verified Allergy, Unknown, 10/24/17) Objective . Vital Signs Date Time Temp Pulse Resp B/P (MAP) Pulse Ox O2 Delivery O2 Flow Rate FiO2 10/25/17 12:00 89 10/25/17 10:00 95 10/25/17 08:00 87 10/25/17 08:00 98.5 86 11 148/67 (94) 91 10/25/17 07:32 91 Nasal Cannula 4.00 10/25/17 07:00 92 Nasal Cannula 5.00 10/25/17 06:00 95 10/25/17 04:00 85 10/25/17 04:00 98.8 84 29 157/71 (99) 91 10/25/17 00:00 98.8 84 26 135/64 (87) 94 10/25/17 00:00 84 10/24/17 23:05 93 Nasal Cannula 4.00 10/24/17 22:00 93 10/24/17 20:00 99.4 91 31 149/66 (93) 92 10/24/17 20:00 94 10/24/17 19:00 92 Nasal Cannula 4.00 10/24/17 18:00 90 10/24/17 16:00 91 10/24/17 16:00 99.1 91 22 153/67 (95) 93 10/24/17 14:00 87 . Laboratory Tests Test 10/24/17 03:39 10/25/17 12:23 White Blood Count 13.2 TH/MM3 Red Blood Count 3.48 MIL/MM3 Hemoglobin 9.1 GM/DL Hematocrit 28.6 % Mean Corpuscular Volume 82.0 FL Mean Corpuscular Hemoglobin 26.2 PG Mean Corpuscular Hemoglobin Concent 32.0 % Red Cell Distribution Width 18.7 % Platelet Count 456 TH/MM3 Mean Platelet Volume 7.9 FL Neutrophils (%) (Auto) 82.7 % Lymphocytes (%) (Auto) 5.2 % Monocytes (%) (Auto) 10.3 % Eosinophils (%) (Auto) 1.8 % Basophils (%) (Auto) 0.0 % Neutrophils # (Auto) 10.9 TH/MM3 Lymphocytes # (Auto) 0.7 TH/MM3 Monocytes # (Auto) 1.4 TH/MM3 Eosinophils # (Auto) 0.2 TH/MM3 Basophils # (Auto) 0.0 TH/MM3 CBC Comment DIFF FINAL Differential Comment Laboratory Tests Test 10/24/17 03:39 Blood Urea Nitrogen 23 MG/DL Creatinine 1.20 MG/DL Random Glucose 104 MG/DL Calcium Level 9.2 MG/DL Magnesium Level 2.0 MG/DL Sodium Level 139 MEQ/L Potassium Level 4.2 MEQ/L Chloride Level 103 MEQ/L Carbon Dioxide Level 22.8 MEQ/L Anion Gap 13 MEQ/L Estimat Glomerular Filtration Rate 62 ML/MIN B-Type Natriuretic Peptide 120 PG/ML Microbiology Date/Time Source Procedure Growth Status 10/23/17 16:05 Bronchial Washings Other Fungal Smear - Final NO FUNGAL ELEMENTS SEEN. Resulted 10/23/17 16:05 Bronchial Washings Other Fungal Culture Pending Resulted 10/23/17 16:05 Bronchial Washings Other Acid Fast Stain Pending Received 10/23/17 16:05 Bronchial Washings Other Mycobacterial Culture Pending Received 10/23/17 16:05 Bronchial Washings Other Gram Stain - Final Complete 10/23/17 16:05 Bronchial Washings Other Bronchial Culture - Final LIGHT GROWTH NORMAL RESPIRATORY AMISH Complete 10/23/17 16:05 Bronchial Brushings Right Lower Lobe Fungal Smear - Final Resulted 10/23/17 16:05 Bronchial Brushings Right Lower Lobe Fungal Culture Pending Resulted 10/23/17 16:05 Bronchial Brushings Right Lower Lobe Acid Fast Stain Pending Received 10/23/17 16:05 Bronchial Brushings Right Lower Lobe Mycobacterial Culture Pending Received 10/23/17 16:05 Bronchial Brushings Right Lower Lobe Bronchial Aspirate Culture - Final NO GROWTH IN 48 HOURS. Complete Imaging Last 72 hours Impressions Chest X-Ray 10/25/17 0000 Signed Impressions: CONCLUSION: Slight improvement in aeration. Chest X-Ray 10/24/17 0800 Signed Impressions: CONCLUSION: Stable chest x-ray with patchy airspace consolidation bilaterally, left slightl y greater than right. Chest X-Ray 10/23/17 0000 Signed Impressions: CONCLUSION: Diffuse patchy infiltrates bilaterally Last Impressions Chest X-Ray 10/20/17 0000 Signed Impressions: CONCLUSION: 1. Diffuse infiltrates are noted bilaterally consistent with severe pulmonary edema or pneumonia. Clinical correlation is recommended. 2. Cardiomegaly. Chest CT 10/17/17 1751 Signed Impressions: CONCLUSION: 1. Diffuse interstitial and groundglass opacities with numerous sub-4 mm rando m nodules sparing the apices and lung bases. Overall pattern is somewhat nonspe cific but likely infectious/inflammatory in etiology. Consider atypical infecti ons. 2. Mediastinal adenopathy which is also nonspecific. Again, favor infectious/i nflammatory etiology. Physical Exam GENERAL: awake and alert, up in chair, NAD SKIN: No rashes, ecchymoses or lesions. Cool and dry. HEAD: Atraumatic. Normocephalic. No temporal or scalp tenderness. EYES: Pupils equal round and reactive. Extraocular motions intact. No scleral icterus. No injection or drainage. ENT: Nose without purulent drainage . Moist oral mucosa. NECK: Trachea midline. No lymphadenopathy. Supple, nontender, no meningeal signs. CARDIOVASCULAR: Regular rate and rhythm without murmurs, gallops, or rubs. Midline scar of surgery RESPIRATORY: Fine rales bilaterally GASTROINTESTINAL: Abdomen soft, non-tender, nondistended. MUSCULOSKELETAL: Extremities without clubbing, cyanosis, or edema. No calf tenderness. Negative Homans sign bilaterally. NEUROLOGICAL: Non-focal LINE: No evidence of infection Assessment & Plan Remarks IMPRESSION Fevers, better, has bilateral pulmonary infiltrates - no clear infectious etiology identified - temps not better despite broad spectrum Abx - ?due to RA Bilateral pulmonary infiltrates, hypoxic - bacterial work-up negative - quantiferon indeterminate - ?unusual pathogen - ?due to RA - last CXR improving Known RA Odynophagia, ?due to procedure RECOMMENDATION Continue Levaquin Stop Diflucan Stop Doxycyline Follow temps Follow bronch studies Monitor progress Pina Calix MD Oct 25, 2017 12:58
--- NOTE | 2017-10-25 15:53 | HHI.PR ---
Subjective Remarks alert no distress Objective Vital Signs Date Time Temp Pulse Resp B/P (MAP) Pulse Ox O2 Delivery O2 Flow Rate FiO2 10/25/17 14:00 95 10/25/17 12:00 98.4 89 21 154/70 (98) 95 10/25/17 12:00 89 10/25/17 10:00 95 10/25/17 08:00 87 10/25/17 08:00 98.5 86 11 148/67 (94) 91 10/25/17 07:32 91 Nasal Cannula 4.00 10/25/17 07:00 92 Nasal Cannula 5.00 10/25/17 06:00 95 10/25/17 04:00 85 10/25/17 04:00 98.8 84 29 157/71 (99) 91 10/25/17 00:00 98.8 84 26 135/64 (87) 94 10/25/17 00:00 84 10/24/17 23:05 93 Nasal Cannula 4.00 10/24/17 22:00 93 10/24/17 20:00 99.4 91 31 149/66 (93) 92 10/24/17 20:00 94 10/24/17 19:00 92 Nasal Cannula 4.00 10/24/17 18:00 90 10/24/17 16:00 91 10/24/17 16:00 99.1 91 22 153/67 (95) 93 I/O 10/24/17 10/24/17 10/24/17 10/25/17 10/25/17 10/25/17 07:00 15:00 23:00 07:00 15:00 23:00 Intake Total 150 ml 600 ml 420 ml Output Total 1275 ml 2125 ml 1001 ml Balance -1275 ml 150 ml -1525 ml -581 ml Intake Oral 600 ml 420 ml IV Total 150 ml Output Urine Total 1275 ml 2125 ml 1000 ml Stool Total 1 ml # Bowel Movements 0 Result Diagram: 10/25/17 1223 10/24/17 0339 Objective Remarks GENERAL: SKIN: Warm and dry. HEAD: Atraumatic. Normocephalic. EYES: Pupils equal and round. No scleral icterus. No injection or drainage. ENT: No nasal bleeding or discharge. Mucous membranes pink and moist. NECK: Trachea midline. No JVD. CARDIOVASCULAR: Regular rate and rhythm. RESPIRATORY: No accessory muscle use. Clear to auscultation. Breath sounds equal bilaterally. GASTROINTESTINAL: Abdomen soft, non-tender, nondistended. Hepatic and splenic margins not palpable. MUSCULOSKELETAL: Extremities without clubbing, cyanosis, or edema. No obvious deformities. NEUROLOGICAL: Awake and alert. No obvious cranial nerve deficits. Motor grossly within normal limits. Five out of 5 muscle strength in the arms and legs. Normal speech. PSYCHIATRIC: Appropriate mood and affect; insight and judgment normal. Assessment and Plan Assessment and Plan imp bronch cultures negative bilateral lung nodules/infiltrates CXRAY clearing plan o2 as needed antibx per ID CHECK BRONCHOSCOPY cytology Adwoa Orona MD Oct 25, 2017 15:52
--- NOTE | 2017-10-25 16:37 | HHI.PR ---
Subjective Remarks No new complaints. Pt appears comfortable on 4L NC. Pt feels that swelling is improving since starting lasix. Objective Vitals Vital Signs Date Time Temp Pulse Resp B/P (MAP) Pulse Ox O2 Delivery O2 Flow Rate FiO2 10/25/17 14:00 95 10/25/17 12:00 98.4 89 21 154/70 (98) 95 10/25/17 12:00 89 10/25/17 10:00 95 10/25/17 08:00 87 10/25/17 08:00 98.5 86 11 148/67 (94) 91 10/25/17 07:32 91 Nasal Cannula 4.00 10/25/17 07:00 92 Nasal Cannula 5.00 10/25/17 06:00 95 10/25/17 04:00 85 10/25/17 04:00 98.8 84 29 157/71 (99) 91 10/25/17 00:00 98.8 84 26 135/64 (87) 94 10/25/17 00:00 84 10/24/17 23:05 93 Nasal Cannula 4.00 10/24/17 22:00 93 10/24/17 20:00 99.4 91 31 149/66 (93) 92 10/24/17 20:00 94 10/24/17 19:00 92 Nasal Cannula 4.00 10/24/17 18:00 90 Result Diagram: 10/25/17 1223 10/24/17 0339 Imaging Last Impressions Chest X-Ray 10/25/17 0000 Signed Impressions: CONCLUSION: Slight improvement in aeration. Chest CT 10/17/17 1751 Signed Impressions: CONCLUSION: 1. Diffuse interstitial and groundglass opacities with numerous sub-4 mm rando m nodules sparing the apices and lung bases. Overall pattern is somewhat nonspe cific but likely infectious/inflammatory in etiology. Consider atypical infecti ons. 2. Mediastinal adenopathy which is also nonspecific. Again, favor infectious/i nflammatory etiology. Objective Remarks GENERAL: This is a well-nourished, well-developed patient, in no apparent distress. CARDIOVASCULAR: Regular rate and rhythm RESPIRATORY: diminished bilateral bases- marked improvement from sunday GASTROINTESTINAL: Abdomen soft, non-tender, nondistended. Normal active bowel sounds MUSCULOSKELETAL: 1-2+ pitting edema at BLEs NEURO: Alert & Oriented x4 to person, place, time, situation. Moves all ext x4 Procedures Fiberoptic bronchoscopy flexible 10/23/[address] Orona A/P Problem List: (1) Fever ICD Codes: R50.9 - Fever, unspecified Status: Acute Plan: Pt is a 62 y/o M with CAD, s/p CABG and RA. Pt follows with Rheumatology, Dr. Kaye. Pt has been on methotrexate in the past. More recently he has been treated with salagen. Pt admitted to [facility] on 10/17/17 with c/o fever x 4-5 days. Pt c/o SOB. Pt reports that he has had worsening SOB for at least one year. - Legionella and pneumococcal Ag negative - Influenza Ag negative - Mycoplasma C/W old infection - BC negative - Sputum normal resp amish - Chest CT 10/17/17 1. Diffuse interstitial and groundglass opacities with numerous sub-4 mm random nodules sparing the apices and lung bases. Overall pattern is somewhat nonspecific but likely infectious/inflammatory in etiology. Consider atypical infections. 2. Mediastinal adenopathy which is also nonspecific. Again, favor infectious/ inflammatory etiology. - ESR 140 (10/23) - CRP 27 (10/23) - Quantiferon intermediate - Pt underwent Bronchoscopy (10/23/17) with Dr. Orona. Studies pending. - Case d/w Dr. Orona (10/23/17) - bronchial brushings/washings --> to date results are negative/some still pending - cytology pending - IV lasix 40 mg TID. Pt has diuresed 4L in the last 48 hours - repeat BNP in AM - CXR (10/25) - slight improvement of b/l patchy infiltrates from 10/23 - able to visualize costophrenic angles. No pleural effusions. - ID also following - Cefepime (10/18 - 10/23) - doxycycline (10/18 - 10/25) - diflucan (10/21 - 10/25) - levaquin (10/23 - present) - etiology remains unclear - infectious - pulmonary manifestations of RA? - lung biopsy? - lovenox for DVT prophylaxis - supportive care (2) Pulmonary nodules/lesions, multiple ICD Codes: R91.8 - Other nonspecific abnormal finding of lung field Plan: - see above (3) Rheumatoid arthritis ICD Codes: M06.9 - Rheumatoid arthritis, unspecified Status: Chronic Plan: - methotrexate, stopped prior to admission. (4) Hypertension ICD Codes: I10 - Hypertension Status: Chronic Plan: - stable - norvasc, hydralazine, cozaar (5) Coronary artery disease ICD Codes: I25.10 - Coronary artery disease Status: Chronic Plan: - stable - s/p CABG 1997 - pt follows with abel Victoria ASA Problem Qualifiers (1) Rheumatoid arthritis: (2) Hypertension: Qualified Codes: I10 - Essential (primary) hypertension (3) Coronary artery disease: Qualified Codes: I25.810 - Atherosclerosis of coronary artery bypass graft(s) without angina pectoris Ronak Hopkins DO Oct 25, 2017 16:37
[2017-10-25] MEDS: GEMFIBROZIL 600 MG TAB PO SCH (17:53)
[2017-10-25] MEDS: ENOXAPARIN SODIUM 40 MG/0.4 ML SYRINGE SQ SCH (21:03)
[2017-10-26] VITALS (16 sets, daily range): BP systolic 117–168; BP diastolic 64–72; PULSE 84–96; RESP 20–28; TEMP 98.2–101.5; O2SAT 91–97
[2017-10-26 04:16] LABS: BICARBONATE 27.8 MEQ/L (21.0-32.0); CALCIUM 8.8 MG/DL (8.5-10.1); CREATININE 1.36 MG/DL (0.60-1.30)
[2017-10-26] MEDS: GEMFIBROZIL 600 MG TAB PO SCH ×2 (07:00→17:18)
[2017-10-26] MEDS: FERROUS SULFATE 325 MG (65 MG ELEMENTAL IRON) TAB PO SCH (09:00)
[2017-10-26] MEDS: FUROSEMIDE 40 MG/4 ML VIAL IV PUSH SCH ×2 (09:19→13:28)
[2017-10-26] MEDS: LOSARTAN 50 MG TAB PO SCH (09:19)
[2017-10-26] MEDS: ASPIRIN EC 81 MG TABEC PO SCH (09:20)
[2017-10-26] MEDS: FOLIC ACID 1 MG TAB PO SCH (09:24)
[2017-10-26] MEDS: CYANOCOBALAMIN 1,000 MCG TAB PO SCH ×2 (09:25→21:53)
[2017-10-26] MEDS: POTASSIUM CHLORIDE 10 MEQ CONTROLLED RELEASE TAB PO SCH (09:25)
[2017-10-26] MEDS: hydrALAZINE HCL 50 MG TAB PO SCH ×2 (10:45→21:53)
[2017-10-26] MEDS: LEVOFLOXACIN 750 MG PREMIX INJ 150 ML IV SCH (10:45)
--- NOTE | 2017-10-26 15:12 | HHI.IDPN ---
Subjective Subjective Remarks ID COVERAGE Patient with known Rheumatoid arthritis has been on Methotrexate for a while, given Salagen and was taken off, admitted for 4-5 day Hx of fevers. he has had problem with SOB for years, but has been worse for >1 year. 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 Has not had any pulmonary evaluation Notes reviewed Temps normal Bronch done Bronch C/S normal resp amish Cytology pending Last CXR stable infiltrates Legionella and pneumococcal Ag negative Influenza Ag negative Mycoplasma C/W old infection Chlamydia pneumonia C/W old infection Bartonella Negative ESR >140 CRP 27 LDH normal Still gets SOB easily On 4L NC Swallowing better Antibiotics Current Medications Medications (Trade) Dose Ordered Sig/Gonzalo Route Start Time Stop Time Status Last Admin (Tylenol) 650 mg Q4H PRN PO 10/17/17 19:30 10/23/17 13:42 (Lovenox Inj) 40 mg Q24H SQ 10/17/17 20:00 10/25/17 21:03 (Norvasc) 10 mg DAILY PO 10/18/17 09:00 10/26/17 09:25 (Ferrous Sulfate) 325 mg DAILY PO 10/18/17 09:00 10/25/17 09:06 (Folate) 1 mg DAILY PO 10/18/17 09:00 10/26/17 09:24 (Lopid) 600 mg BIDAC PO 10/18/17 07:00 10/26/17 07:00 (Apresoline) 100 mg BID PO 10/17/17 21:00 10/26/17 10:45 (Cozaar) 100 mg DAILY PO 10/18/17 09:00 10/26/17 09:19 (Vitamin B12) 1,000 mcg BID PO 10/18/17 21:05 10/26/17 09:25 (KCl) 10 meq DAILY PO 10/20/17 09:00 10/26/17 09:25 Levofloxacin/ Dextrose 150 ml @ 100 mls/hr Q24H IV 10/23/17 11:00 10/26/17 10:45 (Ecotrin Ec) 81 mg DAILY PO 10/24/17 09:00 10/26/17 09:20 (Lasix Inj) 40 mg TID IV PUSH 10/24/17 09:00 10/26/17 13:28 (Cepacol Extra Nighat (Sugar Free)) 1 lozenge Q2HR PRN BUCCAL 10/25/17 17:15 Lines PIV no evidence of infection Past Medical History HTN CAD RA Hyperlipidemia Past Surgical History CABG Tonsillectomy Allergies: Coded Allergies: Influenza Virus Vaccines (Unverified Allergy, Severe, SITE SWELLING, ) Yqotbqh-Lel-Pks Reductase Inhibitor (Verified Allergy, Unknown, 10/24/17) Objective . Vital Signs Date Time Temp Pulse Resp B/P (MAP) Pulse Ox O2 Delivery O2 Flow Rate FiO2 10/26/17 12:00 98.6 96 26 141/69 (93) 94 10/26/17 12:00 96 10/26/17 10:00 85 10/26/17 08:00 98.2 85 26 149/70 (96) 91 10/26/17 08:00 85 10/26/17 07:22 93 Nasal Cannula 4.50 10/26/17 07:00 90 Nasal Cannula 4.00 10/26/17 06:00 86 10/26/17 04:00 98.8 96 27 168/70 (102) 93 10/26/17 04:00 92 10/26/17 02:00 84 10/26/17 00:00 86 10/26/17 00:00 98.3 86 28 144/64 (90) 92 10/25/17 22:00 94 10/25/17 21:08 92 Nasal Cannula 6.00 10/25/17 20:00 94 10/25/17 20:00 98.8 94 23 162/74 (103) 99 10/25/17 19:00 92 Nasal Cannula 5.00 10/25/17 18:00 90 10/25/17 16:00 98.6 92 21 156/72 (100) 90 10/25/17 16:00 92 . Laboratory Tests Test 10/25/17 12:23 White Blood Count 12.1 TH/MM3 Red Blood Count 3.84 MIL/MM3 Hemoglobin 10.2 GM/DL Hematocrit 31.6 % Mean Corpuscular Volume 82.3 FL Mean Corpuscular Hemoglobin 26.6 PG Mean Corpuscular Hemoglobin Concent 32.4 % Red Cell Distribution Width 19.5 % Platelet Count 473 TH/MM3 Mean Platelet Volume 7.9 FL Neutrophils (%) (Auto) 78.7 % Lymphocytes (%) (Auto) 6.6 % Monocytes (%) (Auto) 10.4 % Eosinophils (%) (Auto) 3.4 % Basophils (%) (Auto) 0.9 % Neutrophils # (Auto) 9.5 TH/MM3 Lymphocytes # (Auto) 0.8 TH/MM3 Monocytes # (Auto) 1.3 TH/MM3 Eosinophils # (Auto) 0.4 TH/MM3 Basophils # (Auto) 0.1 TH/MM3 CBC Comment DIFF FINAL Differential Comment Hematology Comments Laboratory Tests Test 10/26/17 03:05 Blood Urea Nitrogen 31 MG/DL Creatinine 1.36 MG/DL Random Glucose 124 MG/DL Calcium Level 8.8 MG/DL Sodium Level 138 MEQ/L Potassium Level 3.6 MEQ/L Chloride Level 99 MEQ/L Carbon Dioxide Level 27.8 MEQ/L Anion Gap 11 MEQ/L Estimat Glomerular Filtration Rate 53 ML/MIN Microbiology Date/Time Source Procedure Growth Status 10/23/17 16:05 Bronchial Washings Other Fungal Smear - Final NO FUNGAL ELEMENTS SEEN. Resulted 10/23/17 16:05 Bronchial Washings Other Fungal Culture Pending Resulted 10/23/17 16:05 Bronchial Washings Other Acid Fast Stain - Final NO ACID FAST BACILLI SEEN Resulted 10/23/17 16:05 Bronchial Washings Other Mycobacterial Culture Pending Resulted 10/23/17 16:05 Bronchial Washings Other Gram Stain - Final Complete 10/23/17 16:05 Bronchial Washings Other Bronchial Culture - Final LIGHT GROWTH NORMAL RESPIRATORY AMISH Complete 10/23/17 16:05 Bronchial Brushings Right Lower Lobe Fungal Smear - Final Resulted 10/23/17 16:05 Bronchial Brushings Right Lower Lobe Fungal Culture Pending Resulted 10/23/17 16:05 Bronchial Brushings Right Lower Lobe Acid Fast Stain - Final NO ACID FAST BACILLI SEEN Resulted 10/23/17 16:05 Bronchial Brushings Right Lower Lobe Mycobacterial Culture Pending Resulted 10/23/17 16:05 Bronchial Brushings Right Lower Lobe Bronchial Aspirate Culture - Final NO GROWTH IN 48 HOURS. Complete Imaging Last 72 hours Impressions Chest X-Ray 10/25/17 0000 Signed Impressions: CONCLUSION: Slight improvement in aeration. Chest X-Ray 10/24/17 0800 Signed Impressions: CONCLUSION: Stable chest x-ray with patchy airspace consolidation bilaterally, left slightl y greater than right. Chest X-Ray 10/23/17 0000 Signed Impressions: CONCLUSION: Diffuse patchy infiltrates bilaterally Last Impressions Chest X-Ray 10/20/17 0000 Signed Impressions: CONCLUSION: 1. Diffuse infiltrates are noted bilaterally consistent with severe pulmonary edema or pneumonia. Clinical correlation is recommended. 2. Cardiomegaly. Chest CT 10/17/17 1751 Signed Impressions: CONCLUSION: 1. Diffuse interstitial and groundglass opacities with numerous sub-4 mm rando m nodules sparing the apices and lung bases. Overall pattern is somewhat nonspe cific but likely infectious/inflammatory in etiology. Consider atypical infecti ons. 2. Mediastinal adenopathy which is also nonspecific. Again, favor infectious/i nflammatory etiology. Physical Exam GENERAL: awake and alert, up in chair, NAD SKIN: No rashes, ecchymoses or lesions. Cool and dry. HEAD: Atraumatic. Normocephalic. No temporal or scalp tenderness. EYES: Pupils equal round and reactive. Extraocular motions intact. No scleral icterus. No injection or drainage. ENT: Nose without purulent drainage . Moist oral mucosa. NECK: Trachea midline. No lymphadenopathy. Supple, nontender, no meningeal signs. CARDIOVASCULAR: Regular rate and rhythm without murmurs, gallops, or rubs. Midline scar of surgery RESPIRATORY: Fine rales bilaterally GASTROINTESTINAL: Abdomen soft, non-tender, nondistended. MUSCULOSKELETAL: Extremities without clubbing, cyanosis, or edema. No calf tenderness. Negative Homans sign bilaterally. NEUROLOGICAL: Non-focal LINE: No evidence of infection Assessment & Plan Remarks IMPRESSION Fevers, better, has bilateral pulmonary infiltrates - no clear infectious etiology identified - temps not better despite broad spectrum Abx - ?due to RA Bilateral pulmonary infiltrates, hypoxic - bacterial work-up negative - quantiferon indeterminate - ?unusual pathogen - ?due to RA - last CXR improving Known RA Odynophagia, ?due to procedure RECOMMENDATION Continue Levaquin - change to po - end date ordered Follow bronch studies Monitor progress OLBx being discussed to determine etiology of his infiltrates D/W Dr Kellie Calix,Pina Mclean MD Oct 26, 2017 15:12
--- NOTE | 2017-10-26 15:23 | HHI.PR ---
Subjective Remarks Pt remains SOB with movement. Pt on 4L NC. Objective Vitals Vital Signs Date Time Temp Pulse Resp B/P (MAP) Pulse Ox O2 Delivery O2 Flow Rate FiO2 10/26/17 12:00 98.6 96 26 141/69 (93) 94 10/26/17 12:00 96 10/26/17 10:00 85 10/26/17 08:00 98.2 85 26 149/70 (96) 91 10/26/17 08:00 85 10/26/17 07:22 93 Nasal Cannula 4.50 10/26/17 07:00 90 Nasal Cannula 4.00 10/26/17 06:00 86 10/26/17 04:00 98.8 96 27 168/70 (102) 93 10/26/17 04:00 92 10/26/17 02:00 84 10/26/17 00:00 86 10/26/17 00:00 98.3 86 28 144/64 (90) 92 10/25/17 22:00 94 10/25/17 21:08 92 Nasal Cannula 6.00 10/25/17 20:00 94 10/25/17 20:00 98.8 94 23 162/74 (103) 99 10/25/17 19:00 92 Nasal Cannula 5.00 10/25/17 18:00 90 10/25/17 16:00 98.6 92 21 156/72 (100) 90 10/25/17 16:00 92 Result Diagram: 10/25/17 1223 10/26/17 0305 Imaging Last Impressions Chest X-Ray 10/25/17 0000 Signed Impressions: CONCLUSION: Slight improvement in aeration. Chest CT 10/17/17 1751 Signed Impressions: CONCLUSION: 1. Diffuse interstitial and groundglass opacities with numerous sub-4 mm rando m nodules sparing the apices and lung bases. Overall pattern is somewhat nonspe cific but likely infectious/inflammatory in etiology. Consider atypical infecti ons. 2. Mediastinal adenopathy which is also nonspecific. Again, favor infectious/i nflammatory etiology. Objective Remarks GENERAL: This is a well-nourished, well-developed patient, in no apparent distress. CARDIOVASCULAR: Regular rate and rhythm RESPIRATORY: diminished bilateral bases- marked improvement from sunday GASTROINTESTINAL: Abdomen soft, non-tender, nondistended. Normal active bowel sounds MUSCULOSKELETAL: 1-2+ pitting edema at BLEs NEURO: Alert & Oriented x4 to person, place, time, situation. Moves all ext x4 Procedures Fiberoptic bronchoscopy flexible 10/23/[address] Orona A/P Problem List: (1) Fever ICD Codes: R50.9 - Fever, unspecified Status: Acute Plan: Pt is a 62 y/o M with CAD, s/p CABG and RA. Pt follows with Rheumatology, Dr. Kaye. Pt has been on methotrexate in the past. More recently he has been treated with salagen. Pt admitted to [facility] on 10/17/17 with c/o fever x 4-5 days. Pt c/o SOB. Pt reports that he has had worsening SOB for at least one year. - Legionella and pneumococcal Ag negative - Influenza Ag negative - Mycoplasma C/W old infection - BC negative - Sputum normal resp amish - Chest CT 10/17/17 1. Diffuse interstitial and groundglass opacities with numerous sub-4 mm random nodules sparing the apices and lung bases. Overall pattern is somewhat nonspecific but likely infectious/inflammatory in etiology. Consider atypical infections. 2. Mediastinal adenopathy which is also nonspecific. Again, favor infectious/ inflammatory etiology. - ESR 140 (10/23) - CRP 27 (10/23) - Quantiferon intermediate - Pt underwent Bronchoscopy (10/23/17) with Dr. Orona. Studies pending. - bronchial brushings/washings --> most studies are negative. Cultures (fungal/ mycobacterial) --> pending - cytology - No malignancy - hemosiderin laden macrophages - Case d/w Dr. Orona (10/26/17) - Will obtain repeat CT chest, compare to prior chest CT (10/17) - IV lasix 40 mg TID. Pt has diuresed 5.8 Liters this week - repeat BNP in AM - Creatinine 1.36 (10/26) - CXR (10/25) - slight improvement of b/l patchy infiltrates from 10/23 - able to visualize costophrenic angles. No pleural effusions. - ID also following. - Fever resolved. Infectious etiology appears less likely. - Case d/w Dr. Calix (10/26) - Cefepime (10/18 - 6/5) - doxycycline (10/18 - 10/25) - diflucan (10/21 - 10/25) - levaquin (10/23 - present) - etiology remains unclear - infectious - pulmonary manifestations of RA? - lung biopsy? VATS? - lovenox for DVT prophylaxis - supportive care (2) Pulmonary nodules/lesions, multiple ICD Codes: R91.8 - Other nonspecific abnormal finding of lung field Plan: - see above (3) Rheumatoid arthritis ICD Codes: M06.9 - Rheumatoid arthritis, unspecified Status: Chronic Plan: - methotrexate, stopped prior to admission. (4) Hypertension ICD Codes: I10 - Hypertension Status: Chronic Plan: - stable - norvasc, hydralazine, cozaar (5) Coronary artery disease ICD Codes: I25.10 - Coronary artery disease Status: Chronic Plan: - stable - s/p CABG 1997 - pt follows with Dr. Damon - abel CARDONA Problem Qualifiers (1) Rheumatoid arthritis: (2) Hypertension: Qualified Codes: I10 - Essential (primary) hypertension (3) Coronary artery disease: Qualified Codes: I25.810 - Atherosclerosis of coronary artery bypass graft(s) without angina pectoris Ronak Hopkins DO Oct 26, 2017 15:23
[2017-10-26] MEDS ORDERED: MAGNESIUM HYDROXIDE SUSP 30 ML CUP PO PRN (16:45)
--- NOTE | 2017-10-26 18:59 | HHI.PR ---
Subjective Remarks alert no distress on o2 NC Objective Vital Signs Date Time Temp Pulse Resp B/P (MAP) Pulse Ox O2 Delivery O2 Flow Rate FiO2 10/26/17 12:00 98.6 96 26 141/69 (93) 94 10/26/17 12:00 96 10/26/17 10:00 85 10/26/17 08:00 98.2 85 26 149/70 (96) 91 10/26/17 08:00 85 10/26/17 07:22 93 Nasal Cannula 4.50 10/26/17 07:00 90 Nasal Cannula 4.00 10/26/17 06:00 86 10/26/17 04:00 98.8 96 27 168/70 (102) 93 10/26/17 04:00 92 10/26/17 02:00 84 10/26/17 00:00 86 10/26/17 00:00 98.3 86 28 144/64 (90) 92 10/25/17 22:00 94 10/25/17 21:08 92 Nasal Cannula 6.00 10/25/17 20:00 94 10/25/17 20:00 98.8 94 23 162/74 (103) 99 10/25/17 19:00 92 Nasal Cannula 5.00 I/O 10/25/17 10/25/17 10/25/17 10/26/17 10/26/17 10/26/17 07:00 15:00 23:00 07:00 15:00 23:00 Intake Total 420 ml 150 ml 650 ml 480 ml Output Total 1001 ml 1500 ml 1451 ml Balance -581 ml 150 ml -850 ml -971 ml Intake Oral 420 ml 650 ml 480 ml IV Total 150 ml Output Urine Total 1000 ml 1500 ml 1450 ml Stool Total 1 ml 1 ml # Bowel Movements 0 Result Diagram: 10/25/17 1223 10/26/17 0305 Objective Remarks GENERAL: SKIN: Warm and dry. HEAD: Atraumatic. Normocephalic. EYES: Pupils equal and round. No scleral icterus. No injection or drainage. ENT: No nasal bleeding or discharge. Mucous membranes pink and moist. NECK: Trachea midline. No JVD. CARDIOVASCULAR: Regular rate and rhythm. RESPIRATORY: No accessory muscle use. Clear to auscultation. Breath sounds equal bilaterally. GASTROINTESTINAL: Abdomen soft, non-tender, nondistended. Hepatic and splenic margins not palpable. MUSCULOSKELETAL: Extremities without clubbing, cyanosis, or edema. No obvious deformities. NEUROLOGICAL: Awake and alert. No obvious cranial nerve deficits. Motor grossly within normal limits. Five out of 5 muscle strength in the arms and legs. Normal speech. PSYCHIATRIC: Appropriate mood and affect; insight and judgment normal. Assessment and Plan Assessment and Plan imp bronch cultures negative bilateral lung nodules/infiltrates CXRAY clearing plan o2 as needed antibx per ID CT chest today Adwoa Orona MD Oct 26, 2017 18:59
--- NOTE | 2017-10-26 19:27 | RADRPT ---
EXAM DATE: 10/26/2017 6:36 PM EDT AGE/SEX: 62 years / Male INDICATIONS: Shortness of breath. CLINICAL DATA: This is the patient's initial encounter. Patient reports that signs and symptoms have been present for 1 day and indicates a pain score of 0/10. MEDICAL/SURGICAL HISTORY: Cardiovascular disease. Congestive heart failure. Hypertension. CABG. RADIATION DOSE: 9.59 CTDI (mGy) COMPARISON: [facility], CT THORAX W CONTRAST, 10/17/2017. . TECHNIQUE: Multiple contiguous axial images were obtained through the chest without contrast. Image s were obtained in suspended respiration using multiple row detector helical technique. Using automa [place] exposure control and adjustment of the mA and/or kV according to patient size, radiation dose was kept as low as reasonably achievable to obtain optimal diagnostic quality images. FINDINGS: Lungs: The lungs demonstrate diffuse increased interstitial markings. There are scattered groundglas s opacity/mosaic perfusion pattern seen throughout the lungs. There are scattered areas of subpleural density seen bilaterally.. Mediastinum: The patient is status post sternotomy. There are nonspecific prominent lymph nodes in t he mediastinum in the pretracheal, precarinal, subcarinal, prevascular regions. These measure up to 1 .4 cm. Pleurae: No evidence of focal thickening or pleural effusion. Axillae: Unremarkable. Bony Structures: Patient is status post sternotomy. Miscellaneous: The examination was extended to include the upper abdomen, and both adrenal glands ar e normal in size and configuration. The spleen appears prominent. CONCLUSION: 1. Diffuse interstitial disease. This appears unchanged. This could represent chronic interstitial d isease. 2. Scattered groundglass opacity and mosaic perfusion pattern likely related to underlying interstit ial disease. 3. Nonspecific mild adenopathy in the mediastinum. 4. Splenomegaly. Electronically signed by: Taz Vaz MD 10/26/2017 7:26 PM EDT
[2017-10-26] MEDS: ENOXAPARIN SODIUM 40 MG/0.4 ML SYRINGE SQ SCH ×2 (20:00→21:52)
[2017-10-26] MEDS: DOCUSATE SODIUM 100 MG CAP PO SCH (21:53)
[2017-10-27] VITALS (8 sets, daily range): BP systolic 125–159; BP diastolic 59–70; PULSE 85–93; RESP 17–22; TEMP 98.1–98.8; O2SAT 92–95
[2017-10-27] MEDS: GEMFIBROZIL 600 MG TAB PO SCH ×2 (05:17→16:09)
[2017-10-27 05:38] LABS: AUTOMATED NEUTROPHIL # 7.2 TH/MM3 (1.8-7.7); BASOPHIL # 0.1 TH/MM3 (0-0.2); EOSINOPHIL # 0.5 TH/MM3 (0-0.4); HEMATOCRIT 29.7 % (39.0-51.0); HEMOGLOBIN 9.8 GM/DL (13.0-17.0); LYMPH % 9.5 % (9.0-44.0); LYMPHOCYTE # 0.9 TH/MM3 (1.0-4.8); MEAN CELL VOLUME 81.9 FL (80.0-100.0); MEAN CORPUSCULAR HEMOGLOBIN 27.1 PG (27.0-34.0); MEAN CORPUSCULAR HGB CONC 33.1 % (32.0-36.0); MEAN PLATELET VOLUME 7.8 FL (7.0-11.0); MONO % 9.5 % (0.0-8.0); MONOCYTE # 0.9 TH/MM3 (0-0.9); PLATELET COUNT 462 TH/MM3 (150-450); RED BLOOD COUNT 3.63 MIL/MM3 (4.50-5.90); RED CELL DISTRIBUTION WIDTH 19.1 % (11.6-17.2); WHITE BLOOD COUNT 9.6 TH/MM3 (4.0-11.0)
[2017-10-27 05:52] LABS: CALCIUM 8.7 MG/DL (8.5-10.1); CREATININE 1.31 MG/DL (0.60-1.30); MAGNESIUM 2.1 MG/DL (1.5-2.5)
[2017-10-27 07:38] LABS: BANDS 1 % (0-6); BASOPHILS 1 % (0-2); LYMPHOCYTES 8 % (9-44); METAMYELOCYTES 2 % (0-1); MONOCYTES 6 % (0-8); MYELOCYTES 1 % (0-0); NEUTROPHIL # MANUAL DIFF 7.3 TH/MM3 (1.8-7.7); POLYS (SEG NEUTROPHILS) 71 % (16-70); PROMYELOCYTES 1 % (0-0)
[2017-10-27] MEDS: LOSARTAN 50 MG TAB PO SCH (08:47)
[2017-10-27] MEDS: FOLIC ACID 1 MG TAB PO SCH (08:48)
[2017-10-27] MEDS: hydrALAZINE HCL 50 MG TAB PO SCH ×2 (08:48→21:29)
[2017-10-27] MEDS: CYANOCOBALAMIN 1,000 MCG TAB PO SCH ×2 (08:48→21:29)
[2017-10-27] MEDS: POTASSIUM CHLORIDE 10 MEQ CONTROLLED RELEASE TAB PO SCH (08:48)
[2017-10-27] MEDS: ASPIRIN EC 81 MG TABEC PO SCH (08:48)
[2017-10-27] MEDS: LEVOFLOXACIN 750 MG TAB PO SCH (08:48)
[2017-10-27] MEDS: DOCUSATE SODIUM 100 MG CAP PO SCH ×2 (08:48→21:28)
[2017-10-27] MEDS: FUROSEMIDE 40 MG/4 ML VIAL IV PUSH SCH ×2 (08:50→16:14)
--- NOTE | 2017-10-27 11:44 | HHI.PR ---
Subjective Remarks alert no distress on o2 NC Objective Vital Signs Date Time Temp Pulse Resp B/P (MAP) Pulse Ox O2 Delivery O2 Flow Rate FiO2 10/27/17 10:05 94 Nasal Cannula 4.00 10/27/17 08:48 Nasal Cannula 4.00 10/27/17 08:00 98.5 87 19 129/65 (86) 95 10/27/17 08:00 85 10/27/17 04:44 98.7 90 18 154/70 (98) 94 10/27/17 00:30 Nasal Cannula 4.00 98 10/27/17 00:00 98.8 93 18 159/69 (99) 92 10/26/17 23:45 98.4 91 24 149/72 (97) 96 10/26/17 23:45 91 10/26/17 23:45 92 10/26/17 22:00 92 10/26/17 20:00 90 10/26/17 20:00 98.3 96 24 147/68 (94) 96 10/26/17 19:36 97 Nasal Cannula 4.00 10/26/17 19:00 92 Nasal Cannula 4.00 10/26/17 18:00 88 10/26/17 16:00 92 10/26/17 14:00 92 10/26/17 12:00 98.6 96 26 141/69 (93) 94 10/26/17 12:00 96 I/O 10/26/17 10/26/17 10/26/17 10/27/17 10/27/17 10/27/17 07:00 15:00 23:00 07:00 15:00 23:00 Intake Total 480 ml 1000 ml Output Total 1451 ml 1500 ml 350 ml Balance -971 ml -500 ml -350 ml Intake Oral 480 ml 1000 ml Output Urine Total 1450 ml 1500 ml 350 ml Stool Total 1 ml # Bowel Movements 0 Result Diagram: 10/27/17 0510/27/17 0511 Objective Remarks GENERAL: SKIN: Warm and dry. HEAD: Atraumatic. Normocephalic. EYES: Pupils equal and round. No scleral icterus. No injection or drainage. ENT: No nasal bleeding or discharge. Mucous membranes pink and moist. NECK: Trachea midline. No JVD. CARDIOVASCULAR: Regular rate and rhythm. RESPIRATORY: No accessory muscle use. Clear to auscultation. Breath sounds equal bilaterally. GASTROINTESTINAL: Abdomen soft, non-tender, nondistended. Hepatic and splenic margins not palpable. MUSCULOSKELETAL: Extremities without clubbing, cyanosis, or edema. No obvious deformities. NEUROLOGICAL: Awake and alert. No obvious cranial nerve deficits. Motor grossly within normal limits. Five out of 5 muscle strength in the arms and legs. Normal speech. PSYCHIATRIC: Appropriate mood and affect; insight and judgment normal. Assessment and Plan Assessment and Plan imp bronch cultures negative bilateral lung nodules/infiltrates CT CHEAST UNCHANGED plan o2 as needed antibx per ID CONSULT THORACIC SURGERY FOR BX Adwoa Orona MD Oct 27, 2017 11:44
--- NOTE | 2017-10-27 13:51 | PD.CAR.PN ---
CVT Progress Note Subjective/Hospital Course: Referral received Full consult to follow Jeannie Choe Objective: Vital Signs Date Time Temp Pulse Resp B/P (MAP) Pulse Ox O2 Delivery O2 Flow Rate FiO2 10/27/17 12:00 98.6 89 17 139/65 (89) 95 10/27/17 10:05 94 Nasal Cannula 4.00 10/27/17 08:48 Nasal Cannula 4.00 10/27/17 08:00 98.5 87 19 129/65 (86) 95 10/27/17 08:00 85 10/27/17 04:44 98.7 90 18 154/70 (98) 94 10/27/17 00:30 Nasal Cannula 4.00 98 10/27/17 00:00 98.8 93 18 159/69 (99) 92 10/26/17 23:45 98.4 91 24 149/72 (97) 96 10/26/17 23:45 91 10/26/17 23:45 92 10/26/17 22:00 92 10/26/17 20:00 90 10/26/17 20:00 98.3 96 24 147/68 (94) 96 10/26/17 19:36 97 Nasal Cannula 4.00 10/26/17 19:00 92 Nasal Cannula 4.00 10/26/17 18:00 88 10/26/17 16:00 92 10/26/17 14:00 92 Labs: Laboratory Tests Test 10/27/17 05:11 White Blood Count 9.6 TH/MM3 (4.0-11.0) Red Blood Count 3.63 MIL/MM3 (4.50-5.90) Hemoglobin 9.8 GM/DL (13.0-17.0) Hematocrit 29.7 % (39.0-51.0) Mean Corpuscular Volume 81.9 FL (80.0-100.0) Mean Corpuscular Hemoglobin 27.1 PG (27.0-34.0) Mean Corpuscular Hemoglobin Concent 33.1 % (32.0-36.0) Red Cell Distribution Width 19.1 % (11.6-17.2) Platelet Count 462 TH/MM3 (150-450) Mean Platelet Volume 7.8 FL (7.0-11.0) Neutrophils (%) (Auto) 75.0 % (16.0-70.0) Lymphocytes (%) (Auto) 9.5 % (9.0-44.0) Monocytes (%) (Auto) 9.5 % (0.0-8.0) Eosinophils (%) (Auto) 5.0 % (0.0-4.0) Basophils (%) (Auto) 1.0 % (0.0-2.0) Neutrophils # (Auto) 7.2 TH/MM3 (1.8-7.7) Lymphocytes # (Auto) 0.9 TH/MM3 (1.0-4.8) Monocytes # (Auto) 0.9 TH/MM3 (0-0.9) Eosinophils # (Auto) 0.5 TH/MM3 (0-0.4) Basophils # (Auto) 0.1 TH/MM3 (0-0.2) CBC Comment AUTO DIFF Differential Total Cells Counted 100 Neutrophils % (Manual) 71 % (16-70) Band Neutrophils % 1 % (0-6) Lymphocytes % 8 % (9-44) Monocytes % 6 % (0-8) Eosinophils % 9 % (0-4) Basophils % 1 % (0-2) Neutrophils # (Manual) 7.3 TH/MM3 (1.8-7.7) Metamyelocytes 2 % (0-1) Myelocytes 1 % (0-0) Promyelocytes 1 % (0-0) Differential Comment FINAL DIFF MANUAL Platelet Estimate HIGH (NORMAL) Platelet Morphology Comment NORMAL (NORMAL) Blood Urea Nitrogen 31 MG/DL (7-18) Creatinine 1.31 MG/DL (0.60-1.30) Random Glucose 105 MG/DL (74-106) Calcium Level 8.7 MG/DL (8.5-10.1) Magnesium Level 2.1 MG/DL (1.5-2.5) Sodium Level 138 MEQ/L (136-145) Potassium Level 3.7 MEQ/L (3.5-5.1) Chloride Level 100 MEQ/L (98-107) Carbon Dioxide Level 28.0 MEQ/L (21.0-32.0) Anion Gap 10 MEQ/L (5-15) Estimat Glomerular Filtration Rate 56 ML/MIN (>89) Result Diagram: 10/27/17 0511 10/27/17 0511 Benita Tomlinson MD Oct 27, 2017 13:51
--- NOTE | 2017-10-27 19:01 | HHI.PR ---
Subjective Remarks No new complaints. Objective Vitals Vital Signs Date Time Temp Pulse Resp B/P (MAP) Pulse Ox O2 Delivery O2 Flow Rate FiO2 10/27/17 16:00 98.6 87 18 125/59 (81) 95 10/27/17 12:00 98.6 89 17 139/65 (89) 95 10/27/17 10:05 94 Nasal Cannula 4.00 10/27/17 08:48 Nasal Cannula 4.00 10/27/17 08:00 98.5 87 19 129/65 (86) 95 10/27/17 08:00 85 10/27/17 04:44 98.7 90 18 154/70 (98) 94 10/27/17 00:30 Nasal Cannula 4.00 98 10/27/17 00:00 98.8 93 18 159/69 (99) 92 10/26/17 23:45 98.4 91 24 149/72 (97) 96 10/26/17 23:45 91 10/26/17 23:45 92 10/26/17 22:00 92 10/26/17 20:00 90 10/26/17 20:00 98.3 96 24 147/68 (94) 96 10/26/17 19:36 97 Nasal Cannula 4.00 10/26/17 19:00 92 Nasal Cannula 4.00 10/27/17 10/27/17 10/28/17 15:00 23:00 07:00 Intake Total 500 ml Output Total 200 ml Balance 300 ml Intake Oral 500 ml Output Urine Total 200 ml # Voids 3 # Bowel Movements 1 Result Diagram: 10/27/17 0511 10/27/17 0511 Imaging Last Impressions Chest CT 10/26/17 0000 Signed Impressions: CONCLUSION: 1. Diffuse interstitial disease. This appears unchanged. This could represent chronic interstitial disease. 2. Scattered groundglass opacity and mosaic perfusion pattern likely related t o underlying interstitial disease. 3. Nonspecific mild adenopathy in the mediastinum. 4. Splenomegaly. Chest X-Ray 10/25/17 0000 Signed Impressions: CONCLUSION: Slight improvement in aeration. Objective Remarks GENERAL: This is a well-nourished, well-developed patient, in no apparent distress. CARDIOVASCULAR: Regular rate and rhythm RESPIRATORY: diminished bilateral bases- marked improvement from sunday GASTROINTESTINAL: Abdomen soft, non-tender, nondistended. Normal active bowel sounds MUSCULOSKELETAL: 1-2+ pitting edema at BLEs NEURO: Alert & Oriented x4 to person, place, time, situation. Moves all ext x4 Procedures Fiberoptic bronchoscopy flexible 10/23/[address] Orona A/P Problem List: (1) Fever ICD Codes: R50.9 - Fever, unspecified Status: Acute Plan: Pt is a 62 y/o M with CAD, s/p CABG and RA. Pt follows with Rheumatology, Dr. Kaye. Pt has been on methotrexate in the past. More recently he has been treated with salagen. Pt admitted to [facility] on 10/17/17 with c/o fever x 4-5 days. Pt c/o SOB. Pt reports that he has had worsening SOB for at least one year. - Legionella and pneumococcal Ag negative - Influenza Ag negative - Mycoplasma C/W old infection - BC negative - Sputum normal resp amish - Chest CT 10/17/17 1. Diffuse interstitial and groundglass opacities with numerous sub-4 mm random nodules sparing the apices and lung bases. Overall pattern is somewhat nonspecific but likely infectious/inflammatory in etiology. Consider atypical infections. 2. Mediastinal adenopathy which is also nonspecific. Again, favor infectious/ inflammatory etiology. - Chest CT 10/26/17 1. Diffuse interstitial disease. This appears unchanged. This could represent chronic interstitial disease. 2. Scattered groundglass opacity and mosaic perfusion pattern likely related to underlying interstitial disease. 3. Nonspecific mild adenopathy in the mediastinum. 4. Splenomegaly. - ESR 140 (10/23) - CRP 27 (10/23) - Quantiferon intermediate - Pt underwent Bronchoscopy (10/23/17) with Dr. Orona. Studies pending. - bronchial brushings/washings --> most studies are negative. Cultures (fungal/ mycobacterial) --> pending - cytology - No malignancy - hemosiderin laden macrophages - Case d/w Dr. Orona (10/27/17) - Repeat chest CT did NOT show improvement - VATS for lung biopsy with Surgery - IV lasix 40 mg TID. Pt has diuresed over 6 Liters this week - Creatinine 1.36 (10/26) - CXR (10/25) - slight improvement of b/l patchy infiltrates from 10/23 - able to visualize costophrenic angles. No pleural effusions. - ID also following. - Fever resolved. Infectious etiology appears less likely. - Case d/w Dr. Calix (10/26) - Cefepime (10/18 - 10/23) - doxycycline (10/18 - 10/25) - diflucan (10/21 - 10/25) - levaquin (10/23 - present) --> stop 10/28 - etiology remains unclear - infectious, unlikely - pulmonary manifestations of RA? - lovenox for DVT prophylaxis - supportive care (2) Pulmonary nodules/lesions, multiple ICD Codes: R91.8 - Other nonspecific abnormal finding of lung field Plan: - see above (3) Rheumatoid arthritis ICD Codes: M06.9 - Rheumatoid arthritis, unspecified Status: Chronic Plan: - methotrexate, stopped prior to admission. (4) Hypertension ICD Codes: I10 - Hypertension Status: Chronic Plan: - stable - norvasc, hydralazine, cozaar (5) Coronary artery disease ICD Codes: I25.10 - Coronary artery disease Status: Chronic Plan: - stable - s/p CABG 1997 - pt follows with Dr. Damon - abel CARDONA Problem Qualifiers (1) Rheumatoid arthritis: (2) Hypertension: Qualified Codes: I10 - Essential (primary) hypertension (3) Coronary artery disease: Qualified Codes: I25.810 - Atherosclerosis of coronary artery bypass graft(s) without angina pectoris Ronak Hopkins DO Oct 27, 2017 19:01
[2017-10-28] VITALS (8 sets, daily range): BP systolic 124–147; BP diastolic 62–67; PULSE 82–91; RESP 17–22; TEMP 98.2–99.6; O2SAT 92–95
[2017-10-28] MEDS: GEMFIBROZIL 600 MG TAB PO SCH ×2 (06:21→17:09)
[2017-10-28] MEDS ORDERED: ENOXAPARIN SODIUM 40 MG/0.4 ML SYRINGE SQ ONE (08:00)
[2017-10-28] MEDS: FOLIC ACID 1 MG TAB PO SCH (08:39)
[2017-10-28] MEDS: LOSARTAN 50 MG TAB PO SCH (08:39)
[2017-10-28] MEDS: FUROSEMIDE 40 MG TAB PO SCH ×2 (08:39→17:09)
[2017-10-28] MEDS: hydrALAZINE HCL 50 MG TAB PO SCH ×2 (08:39→19:16)
[2017-10-28] MEDS: CYANOCOBALAMIN 1,000 MCG TAB PO SCH ×2 (08:39→19:17)
[2017-10-28] MEDS: ASPIRIN EC 81 MG TABEC PO SCH (08:39)
[2017-10-28] MEDS: LEVOFLOXACIN 750 MG TAB PO SCH (08:39)
[2017-10-28] MEDS: DOCUSATE SODIUM 100 MG CAP PO SCH ×2 (08:40→19:16)
[2017-10-28] MEDS: POTASSIUM CHLORIDE 10 MEQ CONTROLLED RELEASE TAB PO SCH (08:40)
[2017-10-28] MEDS: BENZOCAINE-MENTHOL (SUGAR FREE) 15 MG-3.6 MG LOZENGE BUCCAL PRN (08:48)
--- NOTE | 2017-10-28 12:47 | PD.CAR.PN ---
CVT Progress Note Subjective/Hospital Course: Referral received Full consult to roxana Choe 10/28/2017 Full consult dictated Patient scheduled for thoracoscopy and right lung biopsy tomorrow Will restart Lovenox after the surgery Objective: Vital Signs Date Time Temp Pulse Resp B/P (MAP) Pulse Ox O2 Delivery O2 Flow Rate FiO2 10/28/17 08:00 98.3 85 17 139/65 (89) 93 10/28/17 00:00 98.2 91 20 140/62 (88) 92 10/27/17 22:00 Nasal Cannula 4.50 98 10/27/17 21:11 93 Nasal Cannula 4.50 10/27/17 20:00 98.1 87 22 133/60 (84) 93 10/27/17 16:00 98.6 87 18 125/59 (81) 95 Result Diagram: 10/27/17 0511 10/27/17 0511 Benita Tomlinson MD Oct 28, 2017 12:47
--- NOTE | 2017-10-28 13:13 | MB ---
cc: Benita Tomlinson MD DATE: 10/28/2017 CONSULTING PHYSICIAN: Benita Tomlinson MD, surgery REASON FOR CONSULTATION: Bilateral diffuse infiltrates and need for lung biopsy. HISTORY OF PRESENT DISEASE: This 62-year-old obese gentleman was admitted to the hospital with about a week of fever. The patient has been worked up since then, was found to have some dry cough and was noted to have bilateral pulmonary tiny nodules, infiltrates and sort of diffuse pneumonic ground glass appearance-type changes. Patient has been now worked up to the point that final diagnosis is still pending; hence, the request for lung biopsy. PAST MEDICAL HISTORY: Coronary artery disease, for which the patient had bypass graft about 20 years ago, renal calculi, hypertension and rheumatoid arthritis, for which the patient was on methotrexate. MEDICATIONS: Multiple, can be found on the record. 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 PHYSICAL EXAMINATION: GENERAL: Reveals a 62-year-old male. HEENT: Normocephalic. No trauma to the head. Pupils are equally reactive. Extraocular muscles intact. NECK: Bilateral carotid pulses. No bruits. I do not feel any significant degree of lymphadenopathy amiable to biopsy or such. CHEST: Bilateral breath sounds, decreased over both lung love. The patient has some mild degree of pulmonary changes. HEART: Regular rhythm. Midline scar from sternotomy. ABDOMEN: Obese, soft, active bowel sounds. EXTREMITIES: Grossly within normal limits. The patient has palpable femoral pulses, but no distal pulses to palpation. Feet are warm, capillary refill is normal. NEUROLOGIC: The patient is grossly intact. IMPRESSION AND RECOMMENDATIONS: This is a 62-year-old male, appearing older than his actual age. He presents with diffuse ground glass appearance changes in both lungs, etiology of which is unclear. There are also diffuse nodules about 2-3 mm in size in both lungs. Clearly, infectious and autoimmune etiologies are in the differential diagnosis. The patient's rheumatoid arthritis might be an important factor because there are clearly a group of autoimmune reticular, endothelial, vascular reactive diseases within the realm of rheumatoid arthritis; ankylosing spondylitis, sarcoidosis, scleroderma and lupus, which might present with diffuse ground glass appearance. Some pneumonias may present the same way. At this point, we have exhausted all the other options and I believe it is not unreasonable to do thoracoscopy and biopsy of the lung. The patient will be scheduled for this for tomorrow. Thank you very much for referral. MD SKYLAR Florez/TUNDE , 12:46 PM , 01:12 PM
--- NOTE | 2017-10-28 15:16 | HHI.PR ---
Subjective Remarks No new complaints. Objective Vitals Vital Signs Date Time Temp Pulse Resp B/P (MAP) Pulse Ox O2 Delivery O2 Flow Rate FiO2 10/28/17 13:17 98.3 82 19 124/63 (83) 10/28/17 12:00 98.2 86 19 145/67 (93) 94 10/28/17 08:00 98.3 85 17 139/65 (89) 93 10/28/17 00:00 98.2 91 20 140/62 (88) 92 10/27/17 22:00 Nasal Cannula 4.50 98 10/27/17 21:11 93 Nasal Cannula 4.50 10/27/17 20:00 98.1 87 22 133/60 (84) 93 10/27/17 16:00 98.6 87 18 125/59 (81) 95 Result Diagram: 10/27/17 0511 10/27/17 0511 Imaging Last Impressions Chest CT 10/26/17 0000 Signed Impressions: CONCLUSION: 1. Diffuse interstitial disease. This appears unchanged. This could represent chronic interstitial disease. 2. Scattered groundglass opacity and mosaic perfusion pattern likely related t o underlying interstitial disease. 3. Nonspecific mild adenopathy in the mediastinum. 4. Splenomegaly. Chest X-Ray 10/25/17 0000 Signed Impressions: CONCLUSION: Slight improvement in aeration. Objective Remarks GENERAL: This is a well-nourished, well-developed patient, in no apparent distress. CARDIOVASCULAR: Regular rate and rhythm RESPIRATORY: diminished bilateral bases- marked improvement 10/23 GASTROINTESTINAL: Abdomen soft, non-tender, nondistended. Normal active bowel sounds MUSCULOSKELETAL: 1-2+ pitting edema at BLEs NEURO: Alert & Oriented x4 to person, place, time, situation. Moves all ext x4 Procedures Fiberoptic bronchoscopy flexible 10/23/[address] Orona A/P Problem List: (1) Fever ICD Codes: R50.9 - Fever, unspecified Status: Acute Plan: Pt is a 62 y/o M with CAD, s/p CABG and RA. Pt follows with Rheumatology, Dr. Kaye. Pt has been on methotrexate in the past. More recently he has been treated with salagen. Pt admitted to [facility] on 10/17/17 with c/o fever x 4-5 days. Pt c/o SOB. Pt reports that he has had worsening SOB for at least one year. - Legionella and pneumococcal Ag negative - Influenza Ag negative - Mycoplasma C/W old infection - BC negative - Sputum normal resp amish - Chest CT 10/17/17 1. Diffuse interstitial and groundglass opacities with numerous sub-4 mm random nodules sparing the apices and lung bases. Overall pattern is somewhat nonspecific but likely infectious/inflammatory in etiology. Consider atypical infections. 2. Mediastinal adenopathy which is also nonspecific. Again, favor infectious/ inflammatory etiology. - Chest CT 10/26/17 1. Diffuse interstitial disease. This appears unchanged. This could represent chronic interstitial disease. 2. Scattered groundglass opacity and mosaic perfusion pattern likely related to underlying interstitial disease. 3. Nonspecific mild adenopathy in the mediastinum. 4. Splenomegaly. - ESR 140 (10/23) - CRP 27 (10/23) - Quantiferon intermediate - Pt underwent Bronchoscopy (10/23/17) with Dr. Orona. Studies pending. - bronchial brushings/washings --> most studies are negative. Cultures (fungal/ mycobacterial) --> pending - cytology - No malignancy - hemosiderin laden macrophages - Case d/w Dr. Orona (10/27/17) - Repeat chest CT did NOT show improvement - Pt to under lung bx by VATS with Dr. Tomlinson (10/29) - Case d/w Dr. Tomlinson (10/28) - Pt will require chest tube for 1-2 days following VATS biopsy - IV lasix 40 mg TID. Pt has diuresed over 6 Liters this week. Lasix changed to PO - Creatinine 1.31 (10/27) - CXR (10/25) - slight improvement of b/l patchy infiltrates from 10/23 - able to visualize costophrenic angles. No pleural effusions. - ID also following. - Fever resolved. Infectious etiology appears less likely. - Case d/w Dr. Calix (10/26) - Cefepime (10/18 - 10/23) - doxycycline (10/18 - 10/25) - diflucan (10/21 - 10/25) - levaquin (10/23 - 10/28) - etiology remains unclear - infectious, unlikely - pulmonary manifestations of RA? - lovenox for DVT prophylaxis - supportive care (2) Pulmonary nodules/lesions, multiple ICD Codes: R91.8 - Other nonspecific abnormal finding of lung field Plan: - see above (3) Rheumatoid arthritis ICD Codes: M06.9 - Rheumatoid arthritis, unspecified Status: Chronic Plan: - methotrexate, stopped prior to admission. (4) Hypertension ICD Codes: I10 - Hypertension Status: Chronic Plan: - stable - norvasc, hydralazine, cozaar (5) Coronary artery disease ICD Codes: I25.10 - Coronary artery disease Status: Chronic Plan: - stable - s/p CABG 1997 - pt follows with [facility] Problem Qualifiers (1) Rheumatoid arthritis: (2) Hypertension: Qualified Codes: I10 - Essential (primary) hypertension (3) Coronary artery disease: Qualified Codes: I25.810 - Atherosclerosis of coronary artery bypass graft(s) without angina pectoris Ronak Hopkins DO Oct 28, 2017 15:16
--- NOTE | 2017-10-28 16:56 | HHI.PR ---
Subjective Remarks alert no distress on o2 NC Objective Vital Signs Date Time Temp Pulse Resp B/P (MAP) Pulse Ox O2 Delivery O2 Flow Rate FiO2 10/28/17 15:46 94 Nasal Cannula 3.00 10/28/17 13:17 98.3 82 19 124/63 (83) 10/28/17 12:00 98.2 86 19 145/67 (93) 94 10/28/17 08:00 98.3 85 17 139/65 (89) 93 10/28/17 00:00 98.2 91 20 140/62 (88) 92 10/27/17 22:00 Nasal Cannula 4.50 98 10/27/17 21:11 93 Nasal Cannula 4.50 10/27/17 20:00 98.1 87 22 133/60 (84) 93 I/O 10/27/17 10/27/17 10/27/17 10/28/17 10/28/17 10/28/17 07:00 15:00 23:00 07:00 15:00 23:00 Intake Total 500 ml 480 ml Output Total 350 ml 200 ml Balance -350 ml 300 ml 480 ml Intake Oral 500 ml 480 ml Output Urine Total 350 ml 200 ml # Voids 3 3 # Bowel Movements 1 0 Result Diagram: 10/27/17 0511 10/27/17 0511 Objective Remarks GENERAL: SKIN: Warm and dry. HEAD: Atraumatic. Normocephalic. EYES: Pupils equal and round. No scleral icterus. No injection or drainage. ENT: No nasal bleeding or discharge. Mucous membranes pink and moist. NECK: Trachea midline. No JVD. CARDIOVASCULAR: Regular rate and rhythm. RESPIRATORY: No accessory muscle use. Clear to auscultation. Breath sounds equal bilaterally. GASTROINTESTINAL: Abdomen soft, non-tender, nondistended. Hepatic and splenic margins not palpable. MUSCULOSKELETAL: Extremities without clubbing, cyanosis, or edema. No obvious deformities. NEUROLOGICAL: Awake and alert. No obvious cranial nerve deficits. Motor grossly within normal limits. Five out of 5 muscle strength in the arms and legs. Normal speech. PSYCHIATRIC: Appropriate mood and affect; insight and judgment normal. Assessment and Plan Assessment and Plan imp bronch cultures negative bilateral lung nodules/infiltrates plan o2 as needed antibx per ID FOR BX Adwoa Barraza MD Oct 28, 2017 16:56
[2017-10-29] VITALS (7 sets, daily range): BP systolic 125–158; BP diastolic 59–68; PULSE 81–86; RESP 18–22; TEMP 97.3–99; O2SAT 93–97
[2017-10-29] MEDS ORDERED: POVIDONE IODINE 5% (ANTISEPSIS KIT) 4 APPLICATIONS EACH NARE PRN (00:45)
[2017-10-29] MEDS ORDERED: LACTATED RINGER'S 1000 ML IV PRN (00:45)
[2017-10-29] MEDS ORDERED: CHLORHEXIDINE GLUCONATE 2 % 1 PACK (2 CLOTHS) TOPICAL PRN (00:45)
[2017-10-29] MEDS: GEMFIBROZIL 600 MG TAB PO SCH ×2 (05:06→07:24)
[2017-10-29] MEDS: hydrALAZINE HCL 50 MG TAB PO SCH ×2 (07:21→20:47)
[2017-10-29] MEDS: LOSARTAN 50 MG TAB PO SCH (07:22)
[2017-10-29] MEDS: FUROSEMIDE 40 MG TAB PO SCH ×2 (07:22→20:40)
[2017-10-29] MEDS: FOLIC ACID 1 MG TAB PO SCH (07:22)
[2017-10-29] MEDS: POTASSIUM CHLORIDE 10 MEQ CONTROLLED RELEASE TAB PO SCH (07:22)
[2017-10-29] MEDS: DOCUSATE SODIUM 100 MG CAP PO SCH ×2 (07:23→20:47)
[2017-10-29] MEDS: ASPIRIN EC 81 MG TABEC PO SCH (07:23)
[2017-10-29] MEDS: CYANOCOBALAMIN 1,000 MCG TAB PO SCH ×2 (07:27→20:47)
--- NOTE | 2017-10-29 10:06 | HHI.PR ---
Subjective Remarks Patient sitting up in chair on 3L NC no new concerns/complaints Plan for lung bx today with Dr. Choe Objective Vitals Vital Signs Date Time Temp Pulse Resp B/P (MAP) Pulse Ox O2 Delivery O2 Flow Rate FiO2 10/29/17 07:20 94 Nasal Cannula 3.00 10/29/17 04:00 98.1 84 22 125/59 (81) 96 10/29/17 00:00 98.2 86 22 158/59 (92) 96 10/28/17 21:12 95 Nasal Cannula 3.00 10/28/17 20:00 98.7 86 22 147/67 (93) 95 10/28/17 19:17 Nasal Cannula 3.00 10/28/17 16:00 99.6 83 19 141/65 (90) 92 10/28/17 15:46 94 Nasal Cannula 3.00 10/28/17 13:17 98.3 82 19 124/63 (83) 10/28/17 12:00 98.2 86 19 145/67 (93) 94 Result Diagram: 10/27/17 0511 10/27/17 0511 Other Results Laboratory Tests Test 10/27/17 05:11 White Blood Count 9.6 TH/MM3 Red Blood Count 3.63 MIL/MM3 Hemoglobin 9.8 GM/DL Hematocrit 29.7 % Mean Corpuscular Volume 81.9 FL Mean Corpuscular Hemoglobin 27.1 PG Mean Corpuscular Hemoglobin Concent 33.1 % Red Cell Distribution Width 19.1 % Platelet Count 462 TH/MM3 Mean Platelet Volume 7.8 FL Neutrophils (%) (Auto) 75.0 % Lymphocytes (%) (Auto) 9.5 % Monocytes (%) (Auto) 9.5 % Eosinophils (%) (Auto) 5.0 % Basophils (%) (Auto) 1.0 % Neutrophils # (Auto) 7.2 TH/MM3 Lymphocytes # (Auto) 0.9 TH/MM3 Monocytes # (Auto) 0.9 TH/MM3 Eosinophils # (Auto) 0.5 TH/MM3 Basophils # (Auto) 0.1 TH/MM3 CBC Comment AUTO DIFF Differential Total Cells Counted 100 Neutrophils % (Manual) 71 % Band Neutrophils % 1 % Lymphocytes % 8 % Monocytes % 6 % Eosinophils % 9 % Basophils % 1 % Neutrophils # (Manual) 7.3 TH/MM3 Metamyelocytes 2 % Myelocytes 1 % Promyelocytes 1 % Differential Comment FINAL DIFF MANUAL Platelet Estimate HIGH Platelet Morphology Comment NORMAL Blood Urea Nitrogen 31 MG/DL Creatinine 1.31 MG/DL Random Glucose 105 MG/DL Calcium Level 8.7 MG/DL Magnesium Level 2.1 MG/DL Sodium Level 138 MEQ/L Potassium Level 3.7 MEQ/L Chloride Level 100 MEQ/L Carbon Dioxide Level 28.0 MEQ/L Anion Gap 10 MEQ/L Estimat Glomerular Filtration Rate 56 ML/MIN Imaging Last Impressions Chest CT 10/26/17 0000 Signed Impressions: CONCLUSION: 1. Diffuse interstitial disease. This appears unchanged. This could represent chronic interstitial disease. 2. Scattered groundglass opacity and mosaic perfusion pattern likely related t o underlying interstitial disease. 3. Nonspecific mild adenopathy in the mediastinum. 4. Splenomegaly. Chest X-Ray 10/25/17 0000 Signed Impressions: CONCLUSION: Slight improvement in aeration. Objective Remarks GENERAL: This is a well-nourished, well-developed patient, in no apparent distress. CARDIOVASCULAR: Regular rate and rhythm RESPIRATORY: diminished bilateral bases GASTROINTESTINAL: Abdomen soft, non-tender, nondistended. Normal active bowel sounds MUSCULOSKELETAL: trace edema at BLEs NEURO: Alert & Oriented x4 to person, place, time, situation. Moves all ext x4 Procedures Fiberoptic bronchoscopy flexible 10/23/[address] Orona A/P Problem List: (1) Fever ICD Codes: R50.9 - Fever, unspecified Status: Acute Plan: Fever Pt is a 62 y/o M with CAD, s/p CABG and RA. Pt follows with Rheumatology, Dr. Kaye. Pt has been on methotrexate in the past. More recently he has been treated with salagen. Pt admitted to [facility] on 10/17/17 with c/o fever x 4-5 days. Pt c/o SOB. Pt reports that he has had worsening SOB for at least one year. - Legionella and pneumococcal Ag negative - Influenza Ag negative - Mycoplasma C/W old infection - BC negative - Sputum normal resp amish - Chest CT 10/17/17 1. Diffuse interstitial and groundglass opacities with numerous sub-4 mm random nodules sparing the apices and lung bases. Overall pattern is somewhat nonspecific but likely infectious/inflammatory in etiology. Consider atypical infections. 2. Mediastinal adenopathy which is also nonspecific. Again, favor infectious/ inflammatory etiology. - Chest CT 10/26/17 1. Diffuse interstitial disease. This appears unchanged. This could represent chronic interstitial disease. 2. Scattered groundglass opacity and mosaic perfusion pattern likely related to underlying interstitial disease. 3. Nonspecific mild adenopathy in the mediastinum. 4. Splenomegaly. - ESR 140 (10/23) - CRP 27 (10/23) - Quantiferon intermediate - Pt underwent Bronchoscopy (10/23/17) with Dr. Orona. Studies pending. - bronchial brushings/washings --> most studies are negative. Cultures (fungal/ mycobacterial) --> pending - cytology - No malignancy - hemosiderin laden macrophages - Case d/w Dr. Orona (10/27/17) - Repeat chest CT did NOT show improvement - Pt to under lung bx by VATS with Dr. Tomlinson (10/29) - Case d/w Dr. Tomlinson (10/28) - Pt will require chest tube for 1-2 days following VATS biopsy - IV lasix 40 mg TID. Pt has diuresed over 6 Liters this week. Lasix changed to PO - Creatinine 1.31 (10/27) - CXR (10/25) - slight improvement of b/l patchy infiltrates from 10/23 - able to visualize costophrenic angles. No pleural effusions. - ID also following. - Fever resolved. Infectious etiology appears less likely. - Case d/w Dr. Calix (10/26) - Cefepime (10/18 - 10/23) - doxycycline (10/18 - 10/25) - diflucan (10/21 - 10/25) - levaquin (10/23 - 10/28) - etiology remains unclear - infectious, unlikely - pulmonary manifestations of RA? - Plan for lung bx with Dr. Дмитрий varela - cieranoariana for DVT prophylaxis - supportive care Pulmonary nodules/lesions, multiple - see above Rheumatoid arthritis - methotrexate, stopped prior to admission. Hypertension - stable - norvasc, hydralazine, cozaar Coronary artery disease - stable - s/p CABG 1997 - pt follows with Dr. Damon - abel CARDONA (2) Pulmonary nodules/lesions, multiple ICD Codes: R91.8 - Other nonspecific abnormal finding of lung field (3) Rheumatoid arthritis ICD Codes: M06.9 - Rheumatoid arthritis, unspecified Status: Chronic (4) Hypertension ICD Codes: I10 - Hypertension Status: Chronic (5) Coronary artery disease ICD Codes: I25.10 - Coronary artery disease Status: Chronic Assessment and Plan Patient examined. Assessment and plan formulated with Divya Braswell PA-C. I agree with the above. Thoracoscopy and lung bx today for suspected RA related lung changes/fever. Problem Qualifiers (1) Rheumatoid arthritis: (2) Hypertension: Qualified Codes: I10 - Essential (primary) hypertension (3) Coronary artery disease: Qualified Codes: I25.810 - Atherosclerosis of coronary artery bypass graft(s) without angina pectoris Divya Braswell Oct 29, 2017 10:06 Mike Abarca MD Oct 29, 2017 13:25
[2017-10-29] MEDS ORDERED: NEOSTIGMINE 5 MG/5 ML SYRINGE IV PUSH ONE (12:00)
[2017-10-29] MEDS ORDERED: PROPOFOL 200 MG/20 ML AMP IV ONE (12:00)
[2017-10-29] MEDS ORDERED: ONDANSETRON HCL 4 MG/2 ML VIAL IV ONE (12:00)
[2017-10-29] MEDS ORDERED: ROCURONIUM INJ 50 MG/5 ML SYRINGE IV PUSH ONE (12:00)
[2017-10-29] MEDS ORDERED: LIDOCAINE HCL 1% PF 5 ML SYRINGE OTHER ONE (12:00)
[2017-10-29] MEDS ORDERED: GLYCOPYRROLATE 1 MG/5 ML SYRINGE IV PUSH ONE (12:00)
[2017-10-29] MEDS ORDERED: DEXAMETHASONE SOD PHOS 4 MG/ML VIAL IV ONE (12:00)
[2017-10-29] MEDS ORDERED: BUPIVACAINE HCL PF 0.25% 30 ML VIAL ONE ×2 (13:00→13:02)
[2017-10-29] MEDS ORDERED: HEPARIN SODIUM - SQ 10,000 UNITS/ML VIAL ONE (13:15)
[2017-10-29] MEDS ORDERED: LEVOFLOXACIN 500 MG PREMIX INJ 100 ML IV ONE (13:42)
[2017-10-29] MEDS ORDERED: ACETAMINOPHEN 1000 MG/100 ML 100 ML IV ONE (16:42)
[2017-10-29] MEDS ORDERED: MIDAZOLAM HCL 2 MG/2 ML VIAL ONE (16:53)
--- NOTE | 2017-10-29 17:08 | HHI.PR ---
Subjective Remarks alert no distress on o2 NC Objective Vital Signs Date Time Temp Pulse Resp B/P (MAP) Pulse Ox O2 Delivery O2 Flow Rate FiO2 10/29/17 12:00 97.3 84 18 148/65 (92) 97 10/29/17 10:11 93 Nasal Cannula 3.00 10/29/17 08:00 98.3 81 18 145/68 (93) 94 10/29/17 07:20 94 Nasal Cannula 3.00 10/29/17 04:00 98.1 84 22 125/59 (81) 96 10/29/17 00:00 98.2 86 22 158/59 (92) 96 10/28/17 21:12 95 Nasal Cannula 3.00 10/28/17 20:00 98.7 86 22 147/67 (93) 95 10/28/17 19:17 Nasal Cannula 3.00 I/O 10/28/17 10/28/17 10/28/17 10/29/17 10/29/17 10/29/17 07:00 15:00 23:00 07:00 15:00 23:00 Intake Total 480 ml 500 ml 0 ml 1400 ml Output Total 10 ml Balance 480 ml 500 ml 0 ml 1390 ml Intake Oral 480 ml 500 ml 0 ml Other 1400 ml Estimated Blood Loss 10 ml # Voids 3 5 4 # Bowel Movements 0 1 1 Result Diagram: 10/27/17 0511 10/27/17 0511 Objective Remarks GENERAL: SKIN: Warm and dry. HEAD: Atraumatic. Normocephalic. EYES: Pupils equal and round. No scleral icterus. No injection or drainage. ENT: No nasal bleeding or discharge. Mucous membranes pink and moist. NECK: Trachea midline. No JVD. CARDIOVASCULAR: Regular rate and rhythm. RESPIRATORY: No accessory muscle use. Clear to auscultation. Breath sounds equal bilaterally. GASTROINTESTINAL: Abdomen soft, non-tender, nondistended. Hepatic and splenic margins not palpable. MUSCULOSKELETAL: Extremities without clubbing, cyanosis, or edema. No obvious deformities. NEUROLOGICAL: Awake and alert. No obvious cranial nerve deficits. Motor grossly within normal limits. Five out of 5 muscle strength in the arms and legs. Normal speech. PSYCHIATRIC: Appropriate mood and affect; insight and judgment normal. Assessment and Plan Assessment and Plan imp bronch cultures negative bilateral lung nodules/infiltrates plan o2 as needed antibx per ID surgery today Adwoa Orona MD Oct 29, 2017 17:08
[2017-10-29] MEDS ORDERED: FUROSEMIDE 20 MG/2 ML VIAL ONE ×2 (17:13→17:42)
--- NOTE | 2017-10-29 17:42 | RADRPT ---
EXAM DATE: 10/29/2017 5:32 PM EDT AGE/SEX: 62 years / Male INDICATIONS: Post right thoracoscopy CLINICAL DATA: This is the patient's subsequent encounter. Patient reports that signs and symptoms h ave been present for 1 week and indicates a pain score of Nonresponsive. MEDICAL/SURGICAL HISTORY: . Cardiovascular disease. Congestive heart failure. Hypertension. . CABG, right chest tube COMPARISON: C, CHEST SINGLE AP, 10/25/2017. . FINDINGS: Right chest tube in good position. Cardiomegaly with moderate interstitial edema and patchy airspace disease in both lungs. The amount of interstitial edema has increased slightly in the interval. CONCLUSION: Right chest tube in good position without pneumothorax. Minimal subcutaneous emphysema. Under aerated with moderate interstitial edema progressed in the interval. Electronically signed by: Mervin Ozuna MD 10/29/2017 5:41 PM EDT
[2017-10-29] MEDS ORDERED: DO NOT ADM ANY ANTICOAGULANT DRUGS PRN (18:00)
--- NOTE | 2017-10-29 18:45 | MP ---
cc: Benita Tomlinson MD DATE OF OPERATION: 10/22/2017 DATE OF SURGERY: 10/29/2017. PREOPERATIVE DIAGNOSIS: Interstitial pulmonary fibrosis, possible malignancy, possible infection. POSTOPERATIVE DIAGNOSIS: Interstitial pulmonary fibrosis, possible malignancy, possible infection. PROCEDURE PERFORMED: Right thoracoscopy and right middle and lower lobe biopsy. SURGEON: Dr. Tomlinson ANESTHESIA: General. ESTIMATED BLOOD LOSS: 20 mL. OPERATIVE PROCEDURE: The patient prepped and draped in usual fashion and first a 10 mm port is placed in the sixth intercostal space mid-axillary line. Through this the right lung is deflated and then a 0 camera is inserted. Chest is examined. The patient has surface of the lung, which appears to be quite anthracotic consistent with long-term exposure either to smoke or some other inhalant. Under direct vision, the first port was placed in the seventh intercostal space. The second one was placed in the fifth intercostal space in the anterior axillary line, slightly anterior to that. Through this port, a grasper is inserted and then the lung is manipulated. The right middle lobe is clearly identified and it is easily moved; it is freed up. There are some adhesions to the right upper lobe; these are very thin and are resected with EndoShears and the right middle lobe is now freed up. A third port is placed in the posterior axillary line in the fourth intercostal space and this is used for next grasper. The grasper is now inserted through the last port posteriorly. The right middle lobe is grasped, pulled up. Through the anterior port an JUVENAL with a bovine pericardium is inserted and fired across the right lower lobe, segment held up. This is done twice and large piece of tissue is removed. Smaller segment is cut off and sent for cultures while the largest segment is sent for pathology. Ports are now repositioned and the right lower lobe is attended. Again a small piece of tissue is stapled off with the Endo-JUVENAL stapler and removed and sent also to pathology. The area is irrigated with saline. No bleeding is encountered. The 28-Kazakh chest tube is placed apically through the anterior port. The rest of them are closed with 0 Vicryl and 4-0 Monocryl. The patient taken from the operating room in stable condition. A chest x-ray obtained. He tolerated the procedure well. MD SKYLAR Florez/TUNDE , 06:07 PM , 06:44 PM
--- NOTE | 2017-10-29 19:47 | PD.CONS ---
HPI Service Critical Care Medicine Consult Requested By Primary Care Physician Dmitri Rivas MD History of Present Illness 62-year-old male with CAD and CABG 1997, HTN, rheumatoid arthritis initially presented with high fevers and cough with associated shortness of breath. The patient had chest imaging which showed diffuse interstitial and groundglass opacities in the lung bases with mediastinal adenopathy. The patient has been undergoing workup with ID and pulmonology. Today he underwent Right thoracoscopy and right middle and lower lobe biopsy by Dr. Mclaughlin for suspicious of pulmonary fibrosis versus malignancy. Postoperatively patient remained hypoxemic and tachypneic in the PACU and critical care was consulted. Review of Systems ROS Unable to obtain patient in respiratory distress on facemask BiPAP Past Family Social History Allergies: Coded Allergies: Influenza Virus Vaccines (Unverified Allergy, Severe, SITE SWELLING, ) Agocrpg-Atv-[id number] Reductase Inhibitor (Verified Allergy, Unknown, 10/24/17) Past Medical History Rheumatoid arthritis Coronary artery disease Hypertension Past Surgical History CABG 1997 Tonsillectomy Reported Medications Reported Meds & Active Scripts Active Oxygen (O2) Device Liter JUVENCIO.CANULA CONTINUOUS PRN Oxygen Concentrator Portable Gaseous 2 L/min via Nasal Canula Continuous For 99 months Ceftin (Cefuroxime Axetil) 250 Mg Tab 250 Mg PO BID 10 Days take 2 tablets twice daily Doxycycline Hyclate 100 Mg Cap 100 Mg PO BID 10 Days Reported Amlodipine (Amlodipine Besylate) 10 Mg Tab 10 Mg PO DAILY Gemfibrozil 600 Mg Tab 600 Mg PO BIDAC Take 30 minutes prior to breakfast and dinner. Melatonin 10 Mg-1 Mg Tab 300 Mcg PO HS PRN Methotrexate 2.5 Mg Tab 20 Mg PO Q7D Losartan (Losartan Potassium) 100 Mg Tab 100 Mg PO DAILY Aspirin 325 Mg Tab 325 Mg PO DAILY B12 (Cyanocobalamin) 1,000 Mcg Tab 1 Tab PO BID Furosemide 40 Mg Tab 40 Mg PO BID Cholestoff (Plant Sterols and Stanols) 450 Mg Tab 1 Tab PO BID Ferrous Sulfate 325 Mg (65 Mg Iron) Tablet 325 Mg PO DAILY Hydralazine (Hydralazine HCl) 100 Mg Tab 100 Mg PO BID Take with meals Folic Acid 0.4 Mg Tab 1 Mg PO DAILY [Fish oil] 1,000 Mg PO BID Coq-10 (Coenzyme Q10 (Ubidecarenone)) 50 Mg Cap 1 Cap PO BID Active Ordered Medications Current Medications Medications (Trade) Dose Ordered Sig/Gonzalo Route PRN Reason Start Time Stop Time Status Last Admin Dose Admin Acetaminophen (Tylenol) 650 mg Q4H PRN PO TEMPERATURE > 101 F 10/17/17 19:30 10/23/17 13:42 Amlodipine Besylate (Norvasc) 10 mg DAILY PO 10/18/17 09:00 10/29/17 07:21 Folic Acid (Folate) 1 mg DAILY PO 10/18/17 09:00 10/29/17 07:22 Gemfibrozil (Lopid) 600 mg BIDAC PO 10/18/17 07:00 10/29/17 07:24 Hydralazine HCl (Apresoline) 100 mg BID PO 10/17/17 21:00 10/29/17 20:47 Losartan Potassium (Cozaar) 100 mg DAILY PO 10/18/17 09:00 10/29/17 07:22 Cyanocobalamin (Vitamin B12) 1,000 mcg BID PO 10/18/17 21:05 10/29/17 20:47 Potassium Chloride (KCl) 10 meq DAILY PO 10/20/17 09:00 10/29/17 07:22 Aspirin (Ecotrin Ec) 81 mg DAILY PO 10/24/17 09:00 10/28/17 08:39 Benzocaine/Menthol (Cepacol Extra Nighat (Sugar Free)) 1 lozenge Q2HR PRN BUCCAL SORE THROAT 10/25/17 17:15 10/28/17 08:48 Docusate Sodium (Colace) 100 mg BID PO 10/26/17 21:00 10/29/17 20:47 Magnesium Hydroxide (Milk Of Magnesia Liq) 30 ml DAILY PRN PO constipation 10/26/17 16:45 Lactated Ringer's 1,000 ml @ 30 mls/hr Q24H PRN IV SEE LABEL COMMENTS 10/29/17 00:45 11/01/17 00:44 10/29/17 12:23 Chlorhexidine Gluconate (Chlorhexidine 2% Cloth) 3 pack 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 UNSCH PRN .XX SEE LABEL COMMENTS 10/29/17 18:00 10/30/17 17:59 Furosemide (Lasix Inj) 20 mg Q6H IV PUSH 10/29/17 20:00 10/30/17 14:01 10/29/17 20:47 Hydromorphone HCl (Dilaudid Pf Inj) 0.5 mg Q4H PRN IV PUSH Pain 6-10 10/29/17 20:45 10/29/17 20:48 Acetaminophen (Tylenol) 325 mg Q4H PRN PO Fever or Pain 1-5 10/29/17 20:45 Furosemide (Lasix) 40 mg BID@,18 PO 10/30/17 18:00 Family History No family history significant for malignancy Social History He does not smoke currently, but he says he smoked 1-1/2 packs a day for 18 years. He stopped 20 years ago when he had his open heart surgery. He does not consume alcohol on a regular basis. Physical Exam Vital Signs Vital Signs Date Time Temp Pulse Resp B/P (MAP) Pulse Ox O2 Delivery O2 Flow Rate FiO2 10/29/17 19:00 98.7 82 15 133/65 (87) 99 Bi-Pap 75 10/29/17 18:30 87 20 129/66 (87) 98 Bi-Pap 75 10/29/17 18:15 90 17 135/60 (85) 97 Bi-Pap 75 10/29/17 17:45 93 18 130/62 (84) 97 Bi-Pap 75 10/29/17 17:30 91 16 133/63 (86) 96 Bi-Pap 75 10/29/17 17:15 87 15 125/61 (82) 94 Bi-Pap 75 10/29/17 17:00 87 20 130/65 (86) 97 Bi-Pap 75 10/29/17 16:45 95 75 10/29/17 16:40 98.5 94 14 143/67 (92) 95 Bi-Pap 75 10/29/17 12:00 97.3 84 18 148/65 (92) 97 10/29/17 10:11 93 Nasal Cannula 3.00 10/29/17 08:00 98.3 81 18 145/68 (93) 94 10/29/17 07:20 94 Nasal Cannula 3.00 10/29/17 04:00 98.1 84 22 125/59 (81) 96 10/29/17 00:00 98.2 86 22 158/59 (92) 96 10/28/17 21:12 95 Nasal Cannula 3.00 10/28/17 20:00 98.7 86 22 147/67 (93) 95 Physical Exam GENERAL: Obese gentleman in moderate respiratory distress with facemask BiPAP SKIN: Warm and dry. HEAD: Normocephalic. EYES: No scleral icterus. No injection or drainage. NECK: Supple, trachea midline. No JVD or lymphadenopathy. CARDIOVASCULAR: Regular rate and rhythm without murmurs, gallops, or rubs. RESPIRATORY: Breath sounds equal bilaterally. Some accessory muscle use. Crackles and fine rhonchi bilaterally GASTROINTESTINAL: Abdomen soft, non-tender, nondistended. MUSCULOSKELETAL: No cyanosis, or edema. BACK: Nontender without obvious deformity. NEURO EXAM: Alert awake and following commands in all 4 extremities Laboratory Date/Time Source Procedure Growth Status 10/21/17 08:55 Blood Peripheral Aerobic Blood Culture - Final NO GROWTH IN 5 DAYS Complete 10/21/17 08:55 Blood Peripheral Anaerobic Blood Culture - Final NO GROWTH IN 5 DAYS Complete 10/23/17 16:05 Bronchial Washings Other Fungal Smear - Final NO FUNGAL ELEMENTS SEEN. Resulted 10/23/17 16:05 Bronchial Washings Other Fungal Culture Pending Resulted 10/18/17 05:10 Urine Random Urine Legionella Antigen - Final PRESUMPTIVE NEGATIVE FOR LEGIONELLA P... Complete 10/18/17 05:10 Urine Random Urine Streptococcus pneumoniae Antigen (M - Final PRESUMPTIVE NEGATIVE FOR STREPTOCOCCU... Complete Result Diagram: 10/27/17 0511 10/27/17 0511 Assessment and Plan Assessment and Plan Respiratory failure -Volume overload -Diuresis -BiPAP PRN -CXR in a.m. Pulmonary infiltrate -Antibiotics per ID -Status post lung biopsy -Management per pulmonology Coronary artery disease -No acute syndrome -Continue aspirin Rheumatoid arthritis Fever -Infectious origin less likely -Patient has been followed by ID -History of rheumatoid disease Hypertension -Norvasc DVT GI prophylaxis -Teds SCDs -Subcu heparin -Pepcid Critical Care: The total critical care time was 35 minutes. Time to perform other separately billable procedures was not included in the critical care time. Luigi Moyer MD Oct 29, 2017 7:47 pm
[2017-10-29] MEDS ORDERED: ACETAMINOPHEN 325 MG TAB PO PRN (20:45)
[2017-10-29] MEDS: FUROSEMIDE 20 MG/2 ML VIAL IV PUSH SCH (20:47)
[2017-10-29] MEDS: HYDROmorphone HCL PF 2 MG/ML VIAL IV PUSH PRN (20:48)
[2017-10-30] VITALS (8 sets, daily range): BP systolic 121–155; BP diastolic 57–74; PULSE 74–80; RESP 17–23; TEMP 98.2–98.9; O2SAT 91–96
[2017-10-30] MEDS: GEMFIBROZIL 600 MG TAB PO SCH ×2 (06:27→16:11)
[2017-10-30] MEDS: FUROSEMIDE 20 MG/2 ML VIAL IV PUSH SCH (08:56)
[2017-10-30] MEDS: DOCUSATE SODIUM 100 MG CAP PO SCH ×2 (08:57→20:25)
[2017-10-30] MEDS: ASPIRIN EC 81 MG TABEC PO SCH (08:57)
[2017-10-30] MEDS: POTASSIUM CHLORIDE 10 MEQ CONTROLLED RELEASE TAB PO SCH (08:57)
[2017-10-30] MEDS: LOSARTAN 50 MG TAB PO SCH (08:57)
[2017-10-30] MEDS: hydrALAZINE HCL 50 MG TAB PO SCH ×2 (08:57→20:26)
[2017-10-30] MEDS: FOLIC ACID 1 MG TAB PO SCH (08:57)
[2017-10-30] MEDS: CYANOCOBALAMIN 1,000 MCG TAB PO SCH ×2 (08:57→20:25)
[2017-10-30] MEDS: HYDROmorphone HCL PF 2 MG/ML VIAL IV PUSH PRN ×3 (08:58→21:33)
--- NOTE | 2017-10-30 10:00 | HHI.IDPN ---
Subjective Subjective Remarks ID COVERAGE Patient with known Rheumatoid arthritis has been on Methotrexate for a while, given Salagen and was taken off, admitted for 4-5 day Hx of fevers. he has had problem with SOB for years, but has been worse for >1 year. 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 Has not had any pulmonary evaluation Notes reviewed Had R thoracoscopy and lung biopsy yesterday Has R CT Hypoxic post op and in ICU currently Required BIPAP, but on NC currently at 6L Patient states breathing is better Pain under control Had low grade temps post-op Antibiotics Current Medications Medications (Trade) Dose Ordered Sig/Gonzalo Route Start Time Stop Time Status Last Admin (Tylenol) 650 mg Q4H PRN PO 10/17/17 19:30 10/23/17 13:42 (Norvasc) 10 mg DAILY PO 10/18/17 09:00 10/30/17 08:56 (Folate) 1 mg DAILY PO 10/18/17 09:00 10/30/17 08:57 (Lopid) 600 mg BIDAC PO 10/18/17 07:00 10/29/17 07:24 (Apresoline) 100 mg BID PO 10/17/17 21:00 10/30/17 08:57 (Cozaar) 100 mg DAILY PO 10/18/17 09:00 10/30/17 08:57 (Vitamin B12) 1,000 mcg BID PO 10/18/17 21:05 10/30/17 08:57 (KCl) 10 meq DAILY PO 10/20/17 09:00 10/30/17 08:57 (Ecotrin Ec) 81 mg DAILY PO 10/24/17 09:00 10/30/17 08:57 (Cepacol Extra Nighat (Sugar Free)) 1 lozenge Q2HR PRN BUCCAL 10/25/17 17:15 10/28/17 08:48 (Colace) 100 mg BID PO 10/26/17 21:00 10/30/17 08:57 (Milk Of Magnesia Liq) 30 ml DAILY PRN PO 10/26/17 16:45 Lactated Ringer's 1,000 ml @ 30 mls/hr Q24H PRN IV 10/29/17 00:45 11/01/17 00:44 10/29/17 12:23 (Chlorhexidine 2% Cloth) 3 pack PRE ASSEMBLY WIRER PRN TOPICAL 10/29/17 00:45 11/01/17 00:44 ([facility] Nursing Information) ALL NURSING DEPARTME... UNSCH PRN .XX 10/29/17 18:00 10/30/17 17:59 (Lasix Inj) 20 mg Q6H IV PUSH 10/29/17 20:00 10/30/17 14:01 10/30/17 08:56 (Dilaudid Pf Inj) 0.5 mg Q4H PRN IV PUSH 10/29/17 20:45 10/30/17 08:58 (Tylenol) 325 mg Q4H PRN PO 10/29/17 20:45 (Lasix) 40 mg BID@ PO 10/30/17 18:00 Lines PIV no evidence of infection Past Medical History HTN CAD RA Hyperlipidemia Past Surgical History CABG Tonsillectomy Allergies: Coded Allergies: Influenza Virus Vaccines (Unverified Allergy, Severe, SITE SWELLING, ) Lslsmqe-Zpi-Nhu Reductase Inhibitor (Verified Allergy, Unknown, 10/24/17) Objective . Vital Signs Date Time Temp Pulse Resp B/P (MAP) Pulse Ox O2 Delivery O2 Flow Rate FiO2 10/30/17 07:00 92 Nasal Cannula 6.00 10/30/17 04:00 98.8 79 23 132/63 (86) 93 10/30/17 00:00 98.9 80 21 121/57 (78) 95 10/29/17 20:00 99.0 84 19 133/63 (86) 97 10/29/17 19:00 98.7 82 15 133/65 (87) 99 Bi-Pap 75 10/29/17 19:00 97 Nasal Cannula 6.00 10/29/17 18:30 87 20 129/66 (87) 98 Bi-Pap 75 10/29/17 18:15 90 17 135/60 (85) 97 Bi-Pap 75 10/29/17 17:45 93 18 130/62 (84) 97 Bi-Pap 75 10/29/17 17:30 91 16 133/63 (86) 96 Bi-Pap 75 10/29/17 17:15 87 15 125/61 (82) 94 Bi-Pap 75 10/29/17 17:00 87 20 130/65 (86) 97 Bi-Pap 75 10/29/17 16:45 95 75 10/29/17 16:40 98.5 94 14 143/67 (92) 95 Bi-Pap 75 10/29/17 12:00 97.3 84 18 148/65 (92) 97 10/29/17 10:11 93 Nasal Cannula 3.00 . Microbiology Date/Time Source Procedure Growth Status 10/29/17 15:30 Wound Lung Fungal Smear - Final NO FUNGAL ELEMENTS SEEN. Resulted 10/29/17 15:30 Wound Lung Fungal Culture Pending Resulted 10/29/17 15:30 Wound Lung Acid Fast Stain Pending Received 10/29/17 15:30 Wound Lung Mycobacterial Culture Pending Received 10/29/17 15:30 Wound Lung Gram Stain - Final Resulted 10/29/17 15:30 Wound Lung Wound Culture Pending Resulted Imaging Chest X-Ray 10/29/17 0000 Signed Impressions: CONCLUSION: Right chest tube in good position without pneumothorax. Minimal subcutaneous em physema. Under aerated with moderate interstitial edema progressed in the interval. Chest X-Ray 10/25/17 0000 Signed Impressions: CONCLUSION: Slight improvement in aeration. Chest X-Ray 10/24/17 0800 Signed Impressions: CONCLUSION: Stable chest x-ray with patchy airspace consolidation bilaterally, left slightl y greater than right. Chest X-Ray 10/23/17 0000 Signed Impressions: CONCLUSION: Diffuse patchy infiltrates bilaterally Chest X-Ray 10/20/17 0000 Signed Impressions: CONCLUSION: 1. Diffuse infiltrates are noted bilaterally consistent with severe pulmonary edema or pneumonia. Clinical correlation is recommended. 2. Cardiomegaly. Chest CT 10/17/17 4661 Signed Impressions: CONCLUSION: 1. Diffuse interstitial and groundglass opacities with numerous sub-4 mm rando m nodules sparing the apices and lung bases. Overall pattern is somewhat nonspe cific but likely infectious/inflammatory in etiology. Consider atypical infecti ons. 2. Mediastinal adenopathy which is also nonspecific. Again, favor infectious/i nflammatory etiology. Physical Exam GENERAL: awake and alert, looks comfortable at rest SKIN: No rashes, ecchymoses or lesions. Cool and dry. HEAD: Atraumatic. Normocephalic. No temporal or scalp tenderness. EYES: Pick conjunctiva. Pupils equal round and reactive. Extraocular motions intact. No scleral icterus. No injection or drainage. ENT: Nose without purulent drainage . Moist oral mucosa. NECK: Trachea midline. No lymphadenopathy. Supple, nontender, no meningeal signs. CARDIOVASCULAR: Regular rate and rhythm without murmurs, gallops, or rubs. Midline scar of surgery RESPIRATORY: Decreased BS L. Dressings pn R dry. CT in place, R serosanguineous GASTROINTESTINAL: Abdomen soft, non-tender, nondistended. MUSCULOSKELETAL: Extremities without clubbing, cyanosis, or edema. No calf tenderness. Negative Homans sign bilaterally. NEUROLOGICAL: Non-focal LINE: No evidence of infection Assessment & Plan Remarks IMPRESSION Fevers, better, has bilateral pulmonary infiltrates - no clear infectious etiology identified - temps not better despite broad spectrum Abx - ?due to RA Bilateral pulmonary infiltrates, hypoxic - bacterial work-up negative - quantiferon indeterminate - ?unusual pathogen - ?due to RA Known RA Odynophagia, ?due to bronch, better RECOMMENDATION Patient is off Abx, got Levaquin till 10/28, got Levaquin perioperatively Follow biopsy results Monitor progress Monitor Pina Laureano MD Oct 30, 2017 10:00
--- NOTE | 2017-10-30 10:08 | HHI.CCPN ---
Subjective Remarks/Hospital Course 62-year-old male with CAD and CABG 1997, HTN, rheumatoid arthritis initially presented with high fevers and cough with associated shortness of breath. The patient had chest imaging which showed diffuse interstitial and groundglass opacities in the lung bases with mediastinal adenopathy. The patient has been undergoing workup with ID and pulmonology. Today he underwent Right thoracoscopy and right middle and lower lobe biopsy by Dr. Mclaughlin for suspicious of pulmonary fibrosis versus malignancy. Postoperatively patient remained hypoxemic and tachypneic in the PACU and critical care was consulted. 10/30: Breathing with acceptable comfort this morning. CXR reveals considerable bilateral atelectasis. Objective Vital Signs Date Time Temp Pulse Resp B/P (MAP) Pulse Ox O2 Delivery O2 Flow Rate FiO2 10/30/17 07:00 92 Nasal Cannula 6.00 10/30/17 04:00 98.8 79 23 132/63 (86) 10/29/17 19:00 75 Intake and Output 10/30/17 10/30/17 10/31/17 08:00 16:00 00:00 Output Total 1610 ml Balance -1610 ml Result Diagram: 10/27/17 0511 10/27/17 0511 Objective Remarks GENERAL: Obese gentleman with no respiratory distress. SKIN: Warm and dry. HEAD: Normocephalic. EYES: No scleral icterus. No injection or drainage. NECK: Supple, trachea midline. Airway widely patent, no obstruction. CARDIOVASCULAR: Regular rate and rhythm without murmurs, gallops, or rubs. RESPIRATORY: Breath sounds equal bilaterally. Some accessory muscle use. Crackles throughout. GASTROINTESTINAL: Abdomen soft, non-tender, nondistended. Bowel sounds active. MUSCULOSKELETAL: No cyanosis, or edema. Warm well perfused. NEURO EXAM: Alert awake and following commands in all 4 extremities. Interactive. A/P Assessment and Plan Respiratory failure -Volume overload resolved. -Reduce diuresis -BiPAP PRN -CXR in a.m. Pulmonary infiltrates -Antibiotics per ID -Status post lung biopsy -Management per pulmonology Coronary artery disease -No acute syndrome -Continue aspirin Rheumatoid arthritis Fever -Infectious origin less likely -Patient has been followed by ID -History of rheumatoid disease Hypertension -Norvasc DVT GI prophylaxis -Teds SCDs -Subcu heparin -Pepcid Overall impression: Acceptable respiratory function status post thoracoscopic lung biopsy. Needs BiPAP and IS. Percy Corona MD Oct 30, 2017 10:08
--- NOTE | 2017-10-30 11:27 | RADRPT ---
EXAM DATE: 10/30/2017 11:15 AM EDT AGE/SEX: 62 years / Male INDICATIONS: Post Thoracoscopy. Patient states no chest complaints. CLINICAL DATA: This is the patient's subsequent encounter. Patient reports that signs and symptoms h ave been present for 2 weeks and indicates a pain score of 0/10. MEDICAL/SURGICAL HISTORY: Cardiovascular disease. Congestive heart failure. Hypertension. CAB G. COMPARISON: [facility], CHEST SINGLE AP, 10/29/2017. . FINDINGS: Significant lung hypoaeration persists. There is persistent bibasilar airspace disease and central va scular engorgement. Right thoracostomy tube remains in place. There is no significant pneumothorax. Heart and mediastinal structures are unchanged. Heart is moderately enlarged. CONCLUSION: 1. No significant change 2. Hypoaerated lungs with bibasilar airspace disease 3. No evidence of pneumothorax 4. Stable position of right chest tube. Electronically signed by: Francisco Copeland MD 10/30/2017 11:26 AM EDT
--- NOTE | 2017-10-30 14:17 | PD.CAR.PN ---
CVT Progress Note Subjective/Hospital Course: Referral received Full consult to roxana Choe 10/28/2017 Full consult dictated Patient scheduled for thoracoscopy and right lung biopsy tomorrow Will restart Lovenox after the surgery 10/30/2017 Patient is status post right thoracoscopy and right lung biopsy Bilateral good breath sounds Small incisions are clean and dry Chest tube in place without pneumothorax and full pulmonary expansion At this point patient is doing better and PO2 FiO2 gradient is greatly improved since after surgery I believe that during the surgery patient received in excess of fluids (1700 cc over 30 minutes), which clearly causes patient to going to pulmonary edema and congestive failure Since then patient was diuresed adequately Plan May transfer to floor from my point Chest tube to waterseal Restart Plavix Likely will remove chest tube tomorrow Objective: Vital Signs Date Time Temp Pulse Resp B/P (MAP) Pulse Ox O2 Delivery O2 Flow Rate FiO2 10/30/17 12:00 98.4 78 18 141/63 (89) 93 10/30/17 09:30 20 10/30/17 08:00 98.4 76 20 136/64 (88) 93 10/30/17 07:00 92 Nasal Cannula 6.00 10/30/17 04:00 98.8 79 23 132/63 (86) 93 10/30/17 00:00 98.9 80 21 121/57 (78) 95 10/29/17 20:00 99.0 84 19 133/63 (86) 97 10/29/17 19:00 98.7 82 15 133/65 (87) 99 Bi-Pap 75 10/29/17 19:00 97 Nasal Cannula 6.00 10/29/17 18:30 87 20 129/66 (87) 98 Bi-Pap 75 10/29/17 18:15 90 17 135/60 (85) 97 Bi-Pap 75 10/29/17 17:45 93 18 130/62 (84) 97 Bi-Pap 75 10/29/17 17:30 91 16 133/63 (86) 96 Bi-Pap 75 10/29/17 17:15 87 15 125/61 (82) 94 Bi-Pap 75 10/29/17 17:00 87 20 130/65 (86) 97 Bi-Pap 75 10/29/17 16:45 95 75 10/29/17 16:40 98.5 94 14 143/67 (92) 95 Bi-Pap 75 Result Diagram: 10/27/17 0511 10/27/17 0511 Benita Tomlinson MD Oct 30, 2017 14:17
[2017-10-30] MEDS: FUROSEMIDE 40 MG TAB PO SCH (16:10)
[2017-10-30] MEDS: CLOPIDOGREL 75 MG TAB PO SCH (16:11)
[2017-10-30 16:21] LABS: BICARBONATE 32.5 MEQ/L (21.0-32.0); CALCIUM 8.9 MG/DL (8.5-10.1); CREATININE 1.34 MG/DL (0.60-1.30)
--- NOTE | 2017-10-30 18:17 | HHI.PR ---
Subjective Remarks alert no distress POST BIOPSY Objective Vital Signs Date Time Temp Pulse Resp B/P (MAP) Pulse Ox O2 Delivery O2 Flow Rate FiO2 10/30/17 12:00 98.4 78 18 141/63 (89) 93 10/30/17 09:30 20 10/30/17 08:00 98.4 76 20 136/64 (88) 93 10/30/17 07:00 92 Nasal Cannula 6.00 10/30/17 04:00 98.8 79 23 132/63 (86) 93 10/30/17 00:00 98.9 80 21 121/57 (78) 95 10/29/17 20:00 99.0 84 19 133/63 (86) 97 10/29/17 19:00 98.7 82 15 133/65 (87) 99 Bi-Pap 75 10/29/17 19:00 97 Nasal Cannula 6.00 10/29/17 18:30 87 20 129/66 (87) 98 Bi-Pap 75 I/O 10/29/17 10/29/17 10/29/17 10/30/17 10/30/17 10/30/17 07:00 15:00 23:00 07:00 15:00 23:00 Intake Total 0 ml 1400 ml Output Total 410 ml 1610 ml Balance 0 ml 990 ml -1610 ml Intake Oral 0 ml Other 1400 ml Output Urine Total 400 ml 1550 ml Chest Tube Drainage Total 60 ml Estimated Blood Loss 10 ml # Voids 4 # Bowel Movements 1 0 Result Diagram: 10/27/17 0511 10/30/17 1530 Objective Remarks GENERAL: SKIN: Warm and dry. HEAD: Atraumatic. Normocephalic. EYES: Pupils equal and round. No scleral icterus. No injection or drainage. ENT: No nasal bleeding or discharge. Mucous membranes pink and moist. NECK: Trachea midline. No JVD. CARDIOVASCULAR: Regular rate and rhythm. RESPIRATORY: No accessory muscle use. RIGHT CHEST TUBE IN PLSCE. GASTROINTESTINAL: Abdomen soft, non-tender, nondistended. Hepatic and splenic margins not palpable. MUSCULOSKELETAL: Extremities without clubbing, cyanosis, or edema. No obvious deformities. NEUROLOGICAL: Awake and alert. No obvious cranial nerve deficits. Motor grossly within normal limits. Five out of 5 muscle strength in the arms and legs. Normal speech. PSYCHIATRIC: Appropriate mood and affect; insight and judgment normal. Assessment and Plan Assessment and Plan imp bronch cultures negative bilateral lung nodules/infiltrates POST PLEUROSCOPIC BX plan o2 as needed antibx per ID CHECK PATH Adwoa Orona MD Oct 30, 2017 18:17
[2017-10-31] VITALS (8 sets, daily range): BP systolic 129–159; BP diastolic 61–69; PULSE 72–90; RESP 18–26; TEMP 98.4–98.8; O2SAT 92–95
[2017-10-31] MEDS: HYDROmorphone HCL PF 2 MG/ML VIAL IV PUSH PRN ×2 (02:14→20:48)
--- NOTE | 2017-10-31 05:13 | RADRPT ---
EXAM DATE: 10/31/2017 5:08 AM EDT AGE/SEX: 62 years / Male INDICATIONS: Shortness of breath. CLINICAL DATA: This is the patient's subsequent encounter. Patient reports that signs and symptoms h ave been present for 1 week and indicates a pain score of 4/10. MEDICAL/SURGICAL HISTORY: . Cardiovascular disease. Congestive heart failure. Hypertension. CA BG. COMPARISON: [facility] [place], CHEST SINGLE AP, 10/30/2017. . FINDINGS: Single AP view the chest. Median sternotomy wires are present. Right-sided chest tubes in place. Bila teral pulmonary opacity with lower lung zone predominance is unchanged. Cardiomediastinal silhouette unchanged. No evidence of pleural effusion or pneumothorax. CONCLUSION: No significant interval change. Persistent bilateral pulmonary parenchymal opacity. Right-sided chest tube again seen. No evidence of pneumothorax. Electronically signed by: Kvng Brown MD 10/31/2017 5:11 AM EDT
[2017-10-31 06:29] LABS: BICARBONATE 30.1 MEQ/L (21.0-32.0); CREATININE 1.27 MG/DL (0.60-1.30)
[2017-10-31] MEDS: POTASSIUM CHLORIDE 10 MEQ CONTROLLED RELEASE TAB PO SCH (08:50)
[2017-10-31] MEDS: GEMFIBROZIL 600 MG TAB PO SCH ×2 (08:50→17:35)
[2017-10-31] MEDS: CLOPIDOGREL 75 MG TAB PO SCH (08:51)
[2017-10-31] MEDS: FOLIC ACID 1 MG TAB PO SCH (08:52)
[2017-10-31] MEDS: CYANOCOBALAMIN 1,000 MCG TAB PO SCH ×2 (08:52→20:53)
[2017-10-31] MEDS: ASPIRIN EC 81 MG TABEC PO SCH (08:52)
[2017-10-31] MEDS: hydrALAZINE HCL 50 MG TAB PO SCH ×2 (08:53→20:53)
[2017-10-31] MEDS: FUROSEMIDE 40 MG TAB PO SCH ×2 (08:53→17:35)
[2017-10-31] MEDS: DOCUSATE SODIUM 100 MG CAP PO SCH ×2 (08:54→20:53)
[2017-10-31] MEDS: LOSARTAN 50 MG TAB PO SCH (09:01)
--- NOTE | 2017-10-31 10:23 | HHI.PR ---
Subjective Remarks pt says he is breathing better today. no other complaints Objective Vitals heart reg lung course bs cornelio right chest tube. abd snt ext no edema Vital Signs Date Time Temp Pulse Resp B/P (MAP) Pulse Ox O2 Delivery O2 Flow Rate FiO2 10/31/17 04:00 98.6 72 18 159/67 (97) 94 10/31/17 00:00 98.7 75 19 135/65 (88) 95 10/30/17 21:27 94 21 10/30/17 21:18 92 Nasal Cannula 6.00 10/30/17 20:00 98.5 74 20 155/74 (101) 91 10/30/17 19:00 97 Nasal Cannula 6.00 75 10/30/17 16:00 98.2 74 17 141/65 (90) 96 10/30/17 12:00 98.4 78 18 141/63 (89) 93 Result Diagram: 10/27/17 0511 10/31/17 0556 Imaging Last Impressions Chest CT 10/26/17 0000 Signed Impressions: CONCLUSION: 1. Diffuse interstitial disease. This appears unchanged. This could represent chronic interstitial disease. 2. Scattered groundglass opacity and mosaic perfusion pattern likely related t o underlying interstitial disease. 3. Nonspecific mild adenopathy in the mediastinum. 4. Splenomegaly. Chest X-Ray 10/25/17 0000 Signed Impressions: CONCLUSION: Slight improvement in aeration. Procedures Fiberoptic bronchoscopy flexible 10/23/[address] Orona A/P Problem List: (1) Fever ICD Codes: R50.9 - Fever, unspecified Status: Acute Plan: Fever Pt is a 62 y/o M with CAD, s/p CABG and RA. Pt follows with Rheumatology, Dr. Kaye. Pt has been on methotrexate in the past. More recently he has been treated with salagen. Pt admitted to [place] [facility] on 10/17/17 with c/o fever x 4-5 days. Pt c/o SOB. Pt reports that he has had worsening SOB for at least one year. - Legionella and pneumococcal Ag negative - Influenza Ag negative - Mycoplasma C/W old infection - BC negative - Sputum normal resp amish - Chest CT 10/17/17 1. Diffuse interstitial and groundglass opacities with numerous sub-4 mm random nodules sparing the apices and lung bases. Overall pattern is somewhat nonspecific but likely infectious/inflammatory in etiology. Consider atypical infections. 2. Mediastinal adenopathy which is also nonspecific. Again, favor infectious/ inflammatory etiology. - Chest CT 10/26/17 1. Diffuse interstitial disease. This appears unchanged. This could represent chronic interstitial disease. 2. Scattered groundglass opacity and mosaic perfusion pattern likely related to underlying interstitial disease. 3. Nonspecific mild adenopathy in the mediastinum. 4. Splenomegaly. - ESR 140 (10/23) - CRP 27 (10/23) - Quantiferon intermediate - Pt underwent Bronchoscopy (10/23/17) with Dr. Orona. Studies pending. - bronchial brushings/washings --> most studies are negative. Cultures (fungal/ mycobacterial) --> pending - cytology - No malignancy - hemosiderin laden macrophages - Case d/w Dr. Orona (10/27/17) - Repeat chest CT did NOT show improvement - Pt had lung biopsy and chest tube with Dr Choe on 10/29. - Was volume overloaded and admitted to ICU after surgery for bipap and diuresis All abx stopped per ID as appears unlikely this is infectious concern is for RA related pneumonic process. Await surgical cx's and path to decide on rx going forward Pulmonary nodules/lesions, multiple - see above Rheumatoid arthritis - methotrexate, stopped prior to admission. Hypertension - stable - norvasc, hydralazine, cozaar Coronary artery disease - stable - s/p CABG 1997 - pt follows with Dr. Damon - abel CARDONA (2) Pulmonary nodules/lesions, multiple ICD Codes: R91.8 - Other nonspecific abnormal finding of lung field Status: Chronic (3) Rheumatoid arthritis ICD Codes: M06.9 - Rheumatoid arthritis, unspecified Status: Chronic (4) Hypertension ICD Codes: I10 - Hypertension Status: Chronic (5) Coronary artery disease ICD Codes: I25.10 - Coronary artery disease Status: Chronic Problem Qualifiers (1) Rheumatoid arthritis: (2) Hypertension: Qualified Codes: I10 - Essential (primary) hypertension (3) Coronary artery disease: Qualified Codes: I25.810 - Atherosclerosis of coronary artery bypass graft(s) without angina pectoris Mike Abarca MD Oct 31, 2017 10:23
--- NOTE | 2017-10-31 11:58 | HHI.CCPN ---
Subjective Remarks/Hospital Course 62-year-old male with CAD and CABG 1997, HTN, rheumatoid arthritis initially presented with high fevers and cough with associated shortness of breath. The patient had chest imaging which showed diffuse interstitial and groundglass opacities in the lung bases with mediastinal adenopathy. The patient has been undergoing workup with ID and pulmonology. Today he underwent Right thoracoscopy and right middle and lower lobe biopsy by Dr. Mclaughlin for suspicious of pulmonary fibrosis versus malignancy. Postoperatively patient remained hypoxemic and tachypneic in the PACU and critical care was consulted. 10/30: Breathing with acceptable comfort this morning. CXR reveals considerable bilateral atelectasis. 10/31: We are pushing his incentive spirometry but the extensive atelectasis continues. Aside from this he breathes comfortably with supplemental oxygen. Objective Vital Signs Date Time Temp Pulse Resp B/P (MAP) Pulse Ox O2 Delivery O2 Flow Rate FiO2 10/31/17 04:00 98.6 72 18 159/67 (97) 94 10/30/17 21:27 21 10/30/17 21:18 Nasal Cannula 6.00 Intake and Output 10/31/17 10/31/17 11/01/17 08:00 16:00 00:00 Intake Total 200 ml Output Total 1450 ml Balance -1250 ml Result Diagram: 10/27/17 0511 10/31/17 0556 Objective Remarks GENERAL: Obese gentleman with minimal respiratory distress but no reserve. SKIN: Warm and dry. HEAD: Normocephalic. EYES: No scleral icterus. No injection or drainage. NECK: Supple, trachea midline. Airway widely patent, no obstruction. CARDIOVASCULAR: Regular rate and rhythm without murmurs, gallops, or rubs. No JVD RESPIRATORY: Breath sounds equal bilaterally. Some accessory muscle use. Crackles persist throughout. GASTROINTESTINAL: Abdomen soft, non-tender, nondistended. Bowel sounds active. No guarding MUSCULOSKELETAL: No cyanosis, or edema. Warm well perfused. NEURO EXAM: Alert awake and following commands in all 4 extremities. Conversant. A/P Assessment and Plan Respiratory failure -Volume overload resolved. -Reduce diuresis -BiPAP PRN -CXR in a.m. Pulmonary infiltrates -Antibiotics per ID -Status post lung biopsy -Management per pulmonology -Push incentive spirometry Coronary artery disease -No acute syndrome -Continue aspirin Rheumatoid arthritis Fever -Infectious origin less likely -Patient has been followed by ID -History of rheumatoid disease Hypertension -Norvasc DVT GI prophylaxis -Teds SCDs -Subcu heparin -Pepcid Overall impression: Acceptable respiratory function status post thoracoscopic lung biopsy. Needs BiPAP and IS. Will sign off and defer to the pulmonary service. Call if needed. Percy Corona MD Oct 31, 2017 11:58
--- NOTE | 2017-10-31 12:46 | PD.CAR.PN ---
CVT Progress Note Subjective/Hospital Course: Referral received Full consult to roxana Choe 10/28/2017 Full consult dictated Patient scheduled for thoracoscopy and right lung biopsy tomorrow Will restart Lovenox after the surgery 10/30/2017 Patient is status post right thoracoscopy and right lung biopsy Bilateral good breath sounds Small incisions are clean and dry Chest tube in place without pneumothorax and full pulmonary expansion At this point patient is doing better and PO2 FiO2 gradient is greatly improved since after surgery I believe that during the surgery patient received in excess of fluids (1700 cc over 30 minutes), which clearly causes patient to going to pulmonary edema and congestive failure Since then patient was diuresed adequately Plan May transfer to floor from my point Chest tube to waterseal Restart Plavix Likely will remove chest tube tomorrow 10/31/2017 Status post thoracoscopy and lung biopsy Puncture incisions are clean and dry Still a very tiny leak from the right chest tube with minimal drainage In face of the same have to leave the chest tube in for another day at least Chest the will remain on waterseal and likely will be removed tomorrow if the air leak disappears Patient has been waiting for floor bed now for 3 days Objective: Vital Signs Date Time Temp Pulse Resp B/P (MAP) Pulse Ox O2 Delivery O2 Flow Rate FiO2 10/31/17 07:00 92 Nasal Cannula 6.00 10/31/17 04:00 98.6 72 18 159/67 (97) 94 10/31/17 00:00 98.7 75 19 135/65 (88) 95 10/30/17 21:27 94 21 10/30/17 21:18 92 Nasal Cannula 6.00 10/30/17 20:00 98.5 74 20 155/74 (101) 91 10/30/17 19:00 97 Nasal Cannula 6.00 75 10/30/17 16:00 98.2 74 17 141/65 (90) 96 Labs: Laboratory Tests Test 10/31/17 05:56 Blood Urea Nitrogen 31 MG/DL (7-18) Creatinine 1.27 MG/DL (0.60-1.30) Random Glucose 116 MG/DL (74-106) Calcium Level 9.0 MG/DL (8.5-10.1) Sodium Level 137 MEQ/L (136-145) Potassium Level 4.2 MEQ/L (3.5-5.1) Chloride Level 99 MEQ/L (98-107) Carbon Dioxide Level 30.1 MEQ/L (21.0-32.0) Anion Gap 8 MEQ/L (5-15) Estimat Glomerular Filtration Rate 58 ML/MIN (>89) Result Diagram: 10/27/17 0511 10/31/17 0556 Benita Tomlinson MD Oct 31, 2017 12:45
--- NOTE | 2017-10-31 20:48 | HHI.PR ---
Subjective Remarks 62 YO male with Fever, Lung infilt, mild sob On Abx Had VATS Rt chest tube draining On NC Objective Vital Signs Vital Signs Date Time Temp Pulse Resp B/P (MAP) Pulse Ox O2 Delivery O2 Flow Rate FiO2 10/31/17 16:00 98.8 87 26 129/61 (83) 94 10/31/17 12:30 92 Nasal Cannula 6.00 10/31/17 12:00 98.4 86 26 136/61 (86) 93 10/31/17 08:00 98.4 79 24 153/69 (97) 94 10/31/17 07:00 92 Nasal Cannula 6.00 10/31/17 04:00 98.6 72 18 159/67 (97) 94 10/31/17 00:00 98.7 75 19 135/65 (88) 95 10/30/17 21:27 94 21 10/30/17 21:18 92 Nasal Cannula 6.00 I/O 10/30/17 10/30/17 10/30/17 10/31/17 10/31/17 10/31/17 07:00 15:00 23:00 07:00 15:00 23:00 Intake Total 680 ml 200 ml 950 ml Output Total 1610 ml 1300 ml 1450 ml 1705 ml Balance -1610 ml -620 ml -1250 ml -755 ml Intake Oral 680 ml 950 ml Other 200 ml Output Urine Total 1550 ml 1250 ml 1450 ml 1615 ml Chest Tube Drainage Total 60 ml 50 ml 90 ml # Bowel Movements 0 0 0 Result Diagram: 10/27/17 0511 10/31/17 0556 Objective Remarks GENERAL: Obese male, mild sob SKIN: Warm and dry. HEAD: Normocephalic. EYES: No scleral icterus. No injection or drainage. NECK: Supple, trachea midline. No JVD or lymphadenopathy. CARDIOVASCULAR: Regular rate and rhythm without murmurs, gallops, or rubs. RESPIRATORY: Breath sounds equal bilaterally. No accessory muscle use. Bilat rhonchi GASTROINTESTINAL: Abdomen soft, non-tender, nondistended. MUSCULOSKELETAL: No cyanosis, or edema. BACK: Nontender without obvious deformity. No CVA tenderness. A/P Assessment and Plan IMPESSION: Pneumonia Fever CAD HTN RH Arthritis S/P VATS PLAN: Cont Abx Supplement 02 Chest tube to Suction Check Bx result. Jovany Lagunas MD Oct 31, 2017 20:48
[2017-11-01] VITALS (9 sets, daily range): BP systolic 134–155; BP diastolic 63–72; PULSE 74–98; RESP 17–25; TEMP 98.4–98.9; O2SAT 91–96
[2017-11-01] MEDS: BENZOCAINE-MENTHOL (SUGAR FREE) 15 MG-3.6 MG LOZENGE BUCCAL PRN (01:05)
[2017-11-01 05:24] LABS: BICARBONATE 31.8 MEQ/L (21.0-32.0); CALCIUM 9.2 MG/DL (8.5-10.1); CREATININE 1.37 MG/DL (0.60-1.30)
[2017-11-01] MEDS: HYDROmorphone HCL PF 2 MG/ML VIAL IV PUSH PRN ×2 (06:24→21:14)
[2017-11-01] MEDS: GEMFIBROZIL 600 MG TAB PO SCH ×2 (06:24→17:13)
[2017-11-01] MEDS: DOCUSATE SODIUM 100 MG CAP PO SCH ×2 (08:53→21:12)
[2017-11-01] MEDS: ASPIRIN EC 81 MG TABEC PO SCH (08:53)
[2017-11-01] MEDS: FUROSEMIDE 40 MG TAB PO SCH ×2 (08:53→17:13)
[2017-11-01] MEDS: hydrALAZINE HCL 50 MG TAB PO SCH ×2 (08:53→21:12)
[2017-11-01] MEDS: CYANOCOBALAMIN 1,000 MCG TAB PO SCH ×2 (08:54→21:00)
[2017-11-01] MEDS: LOSARTAN 50 MG TAB PO SCH (08:54)
[2017-11-01] MEDS: CLOPIDOGREL 75 MG TAB PO SCH (08:54)
[2017-11-01] MEDS: FOLIC ACID 1 MG TAB PO SCH (08:54)
[2017-11-01] MEDS: POTASSIUM CHLORIDE 10 MEQ CONTROLLED RELEASE TAB PO SCH (08:56)
--- NOTE | 2017-11-01 09:19 | HHI.PR ---
Subjective Remarks breathing ok. hoping to get oob today. Objective Vitals heart reg lung right chest tube lung course bs/crackles abd s/nt ext no edema Vital Signs Date Time Temp Pulse Resp B/P (MAP) Pulse Ox O2 Delivery O2 Flow Rate FiO2 11/01/17 04:00 98.7 79 19 155/72 (99) 95 11/01/17 00:00 98.7 80 18 151/70 (97) 96 10/31/17 20:00 98.8 90 25 143/67 (92) 92 10/31/17 19:00 93 Nasal Cannula 6.00 10/31/17 16:00 98.8 87 26 129/61 (83) 94 10/31/17 12:30 92 Nasal Cannula 6.00 10/31/17 12:00 98.4 86 26 136/61 (86) 93 Result Diagram: 11/01/17 0418 Imaging Last Impressions Chest CT 10/26/17 0000 Signed Impressions: CONCLUSION: 1. Diffuse interstitial disease. This appears unchanged. This could represent chronic interstitial disease. 2. Scattered groundglass opacity and mosaic perfusion pattern likely related t o underlying interstitial disease. 3. Nonspecific mild adenopathy in the mediastinum. 4. Splenomegaly. Chest X-Ray 10/25/17 0000 Signed Impressions: CONCLUSION: Slight improvement in aeration. Procedures Fiberoptic bronchoscopy flexible 10/23/[address] Orona A/P Problem List: (1) Fever ICD Codes: R50.9 - Fever, unspecified Status: Acute Plan: Fever Pt is a 62 y/o M with CAD, s/p CABG and RA. Pt follows with Rheumatology, Dr. Kaye. Pt has been on methotrexate in the past. More recently he has been treated with salagen. Pt admitted to [facility] on 10/17/17 with c/o fever x 4-5 days. Pt c/o SOB. Pt reports that he has had worsening SOB for at least one year. - Legionella and pneumococcal Ag negative - Influenza Ag negative - Mycoplasma C/W old infection - BC negative - Sputum normal resp amish - Chest CT 10/17/17 1. Diffuse interstitial and groundglass opacities with numerous sub-4 mm random nodules sparing the apices and lung bases. Overall pattern is somewhat nonspecific but likely infectious/inflammatory in etiology. Consider atypical infections. 2. Mediastinal adenopathy which is also nonspecific. Again, favor infectious/ inflammatory etiology. - Chest CT 10/26/17 1. Diffuse interstitial disease. This appears unchanged. This could represent chronic interstitial disease. 2. Scattered groundglass opacity and mosaic perfusion pattern likely related to underlying interstitial disease. 3. Nonspecific mild adenopathy in the mediastinum. 4. Splenomegaly. - ESR 140 (10/23) - CRP 27 (10/23) - Quantiferon intermediate - Pt underwent Bronchoscopy (10/23/17) with Dr. Orona. Studies pending. - bronchial brushings/washings --> most studies are negative. Cultures (fungal/ mycobacterial) --> pending - cytology - No malignancy - hemosiderin laden macrophages - Case d/w Dr. Orona (10/27/17) - Repeat chest CT did NOT show improvement - Pt had lung biopsy and chest tube with Dr Choe on 10/29. - Was volume overloaded and admitted to ICU after surgery for bipap and diuresis All abx stopped per ID as appears unlikely this is infectious concern is for RA related pneumonic process. Await surgical cx's and path to decide on rx going forward awaiting transfer out of ICU PT consult and oob. incentived spirometer. Pulmonary nodules/lesions, multiple - see above Rheumatoid arthritis - methotrexate, stopped prior to admission. Hypertension - stable - norvasc, hydralazine, cozaar Coronary artery disease - stable - s/p CABG 1997 - pt follows with Dr. Damon - abel CARDONA (2) Pulmonary nodules/lesions, multiple ICD Codes: R91.8 - Other nonspecific abnormal finding of lung field Status: Chronic (3) Rheumatoid arthritis ICD Codes: M06.9 - Rheumatoid arthritis, unspecified Status: Chronic (4) Hypertension ICD Codes: I10 - Hypertension Status: Chronic (5) Coronary artery disease ICD Codes: I25.10 - Coronary artery disease Status: Chronic Problem Qualifiers (1) Rheumatoid arthritis: (2) Hypertension: Qualified Codes: I10 - Essential (primary) hypertension (3) Coronary artery disease: Qualified Codes: I25.810 - Atherosclerosis of coronary artery bypass graft(s) without angina pectoris Mike Abarca MD Nov 01, 2017 09:19
--- NOTE | 2017-11-01 15:36 | PD.CAR.PN ---
CVT Progress Note Subjective/Hospital Course: Referral received Full consult to roxana Choe 10/28/2017 Full consult dictated Patient scheduled for thoracoscopy and right lung biopsy tomorrow Will restart Lovenox after the surgery 10/30/2017 Patient is status post right thoracoscopy and right lung biopsy Bilateral good breath sounds Small incisions are clean and dry Chest tube in place without pneumothorax and full pulmonary expansion At this point patient is doing better and PO2 FiO2 gradient is greatly improved since after surgery I believe that during the surgery patient received in excess of fluids (1700 cc over 30 minutes), which clearly causes patient to going to pulmonary edema and congestive failure Since then patient was diuresed adequately Plan May transfer to floor from my point Chest tube to waterseal Restart Plavix Likely will remove chest tube tomorrow 10/31/2017 Status post thoracoscopy and lung biopsy Puncture incisions are clean and dry Still a very tiny leak from the right chest tube with minimal drainage In face of the same have to leave the chest tube in for another day at least Chest the will remain on waterseal and likely will be removed tomorrow if the air leak disappears Patient has been waiting for floor bed now for 3 days 11/01/2017 Patient doing well Bilateral pulmonary expansion with dry and clean incisions Chest tube has still a tiny air leak when patient coughs only on Valsalva maneuver We will clamp the chest tube for a few hours and see how patient does and if there is no leak at that point we will remove the chest tube Pathology still pending Objective: Vital Signs Date Time Temp Pulse Resp B/P (MAP) Pulse Ox O2 Delivery O2 Flow Rate FiO2 11/01/17 12:00 98.7 94 25 145/67 (93) 93 11/01/17 08:00 98.6 74 20 141/66 (91) 95 11/01/17 07:00 95 Nasal Cannula 6.00 11/01/17 04:00 98.7 79 19 155/72 (99) 95 11/01/17 00:00 98.7 80 18 151/70 (97) 96 10/31/17 20:00 98.8 90 25 143/67 (92) 92 10/31/17 19:00 93 Nasal Cannula 6.00 10/31/17 19:00 93 Nasal Cannula 6.00 10/31/17 16:00 98.8 87 26 129/61 (83) 94 Labs: Laboratory Tests Test 11/01/17 04:18 Blood Urea Nitrogen 28 MG/DL (7-18) Creatinine 1.37 MG/DL (0.60-1.30) Random Glucose 111 MG/DL (74-106) Calcium Level 9.2 MG/DL (8.5-10.1) Sodium Level 135 MEQ/L (136-145) Potassium Level 3.7 MEQ/L (3.5-5.1) Chloride Level 94 MEQ/L (98-107) Carbon Dioxide Level 31.8 MEQ/L (21.0-32.0) Anion Gap 9 MEQ/L (5-15) Estimat Glomerular Filtration Rate 53 ML/MIN (>89) Result Diagram: 11/01/17 0418 Benita Tomlinson MD Nov 01, 2017 15:36
--- NOTE | 2017-11-01 16:04 | HHI.PR ---
Subjective Remarks 62 YO male with Fever, Lung infilt, mild sob On Abx Had VATS Rt chest tube draining On NC family at BS Objective Vital Signs Vital Signs Date Time Temp Pulse Resp B/P (MAP) Pulse Ox O2 Delivery O2 Flow Rate FiO2 11/01/17 12:00 98.7 94 25 145/67 (93) 93 11/01/17 08:00 98.6 74 20 141/66 (91) 95 11/01/17 07:00 95 Nasal Cannula 6.00 11/01/17 04:00 98.7 79 19 155/72 (99) 95 11/01/17 00:00 98.7 80 18 151/70 (97) 96 10/31/17 20:00 98.8 90 25 143/67 (92) 92 10/31/17 19:00 93 Nasal Cannula 6.00 10/31/17 19:00 93 Nasal Cannula 6.00 I/O 10/31/17 10/31/17 10/31/17 11/01/17 11/01/17 11/01/17 07:00 15:00 23:00 07:00 15:00 23:00 Intake Total 200 ml 950 ml 480 ml Output Total 1450 ml 1705 ml 670 ml Balance -1250 ml -755 ml -190 ml Intake Oral 950 ml 480 ml Other 200 ml Output Urine Total 1450 ml 1615 ml 650 ml Chest Tube Drainage Total 90 ml Drainage Total 20 ml # Bowel Movements 0 Result Diagram: 11/01/17 0418 Objective Remarks GENERAL: Obese male, mild sob SKIN: Warm and dry. HEAD: Normocephalic. EYES: No scleral icterus. No injection or drainage. NECK: Supple, trachea midline. No JVD or lymphadenopathy. CARDIOVASCULAR: Regular rate and rhythm without murmurs, gallops, or rubs. RESPIRATORY: Breath sounds equal bilaterally. No accessory muscle use. Bilat rhonchi GASTROINTESTINAL: Abdomen soft, non-tender, nondistended. MUSCULOSKELETAL: No cyanosis, or edema. BACK: Nontender without obvious deformity. No CVA tenderness. A/P Assessment and Plan IMPESSION: Pneumonia Fever CAD HTN RH Arthritis S/P VATS PLAN: Cont Abx Supplement 02 Chest tube to water seal Check Bx result. Jovany Lagunas MD Nov 01, 2017 16:04
[2017-11-02] VITALS: BP 129/62; PULSE 91; RESP 19; TEMP 98.2; O2SAT 94
[2017-11-02 04:00] VITALS: BP 136/94; PULSE 91; RESP 20; TEMP 99.1; O2SAT 93
[2017-11-02 08:32] VITALS: BP 148/70; PULSE 87; RESP 18; TEMP 98.6; O2SAT 94; O2SAT 95
[2017-11-02] MEDS: DOCUSATE SODIUM 100 MG CAP PO SCH ×2 (09:49→21:25)
[2017-11-02] MEDS: POTASSIUM CHLORIDE 10 MEQ CONTROLLED RELEASE TAB PO SCH (09:49)
[2017-11-02] MEDS: LOSARTAN 50 MG TAB PO SCH (09:49)
[2017-11-02] MEDS: FOLIC ACID 1 MG TAB PO SCH (09:49)
[2017-11-02] MEDS: ASPIRIN EC 81 MG TABEC PO SCH (09:49)
[2017-11-02] MEDS: hydrALAZINE HCL 50 MG TAB PO SCH ×2 (09:49→21:27)
[2017-11-02] MEDS: CLOPIDOGREL 75 MG TAB PO SCH (09:50)
[2017-11-02] MEDS: GEMFIBROZIL 600 MG TAB PO SCH ×2 (09:50→16:36)
[2017-11-02] MEDS: CYANOCOBALAMIN 1,000 MCG TAB PO SCH ×2 (09:50→21:25)
[2017-11-02] MEDS: FUROSEMIDE 40 MG TAB PO SCH (09:54)
--- NOTE | 2017-11-02 10:38 | HHI.PR ---
Subjective Remarks Pt able to get up and walk with PT this morning Objective Vitals Vital Signs Date Time Temp Pulse Resp B/P (MAP) Pulse Ox O2 Delivery O2 Flow Rate FiO2 11/02/17 08:32 94 Nasal Cannula 4.00 11/02/17 08:32 98.6 87 18 148/70 (96) 95 11/02/17 04:00 99.1 91 20 136/94 (108) 93 11/02/17 00:00 98.2 91 19 129/62 (84) 94 11/01/17 21:05 Nasal Cannula 4.00 11/01/17 20:00 98.4 98 17 134/66 (88) 91 11/01/17 18:48 98.9 88 18 134/63 (86) 95 11/01/17 16:00 98.6 87 22 134/71 (92) 96 11/01/17 12:00 98.7 94 25 145/67 (93) 93 Result Diagram: 11/01/17 0418 Other Results Laboratory Tests Test 11/01/17 04:18 11/02/17 07:16 Blood Urea Nitrogen 28 MG/DL Creatinine 1.37 MG/DL Random Glucose 111 MG/DL Calcium Level 9.2 MG/DL Sodium Level 135 MEQ/L Potassium Level 3.7 MEQ/L Chloride Level 94 MEQ/L Carbon Dioxide Level 31.8 MEQ/L Anion Gap 9 MEQ/L Estimat Glomerular Filtration Rate 53 ML/MIN Imaging Last Impressions Chest X-Ray 10/31/17 0500 Signed Impressions: CONCLUSION: No significant interval change. Persistent bilateral pulmonary parenchymal opac ity. Right-sided chest tube again seen. No evidence of pneumothorax. Chest CT 10/26/17 0000 Signed Impressions: CONCLUSION: 1. Diffuse interstitial disease. This appears unchanged. This could represent chronic interstitial disease. 2. Scattered groundglass opacity and mosaic perfusion pattern likely related t o underlying interstitial disease. 3. Nonspecific mild adenopathy in the mediastinum. 4. Splenomegaly. Last Impressions Chest CT 10/26/17 0000 Signed Impressions: CONCLUSION: 1. Diffuse interstitial disease. This appears unchanged. This could represent chronic interstitial disease. 2. Scattered groundglass opacity and mosaic perfusion pattern likely related t o underlying interstitial disease. 3. Nonspecific mild adenopathy in the mediastinum. 4. Splenomegaly. Chest X-Ray 10/25/17 0000 Signed Impressions: CONCLUSION: Slight improvement in aeration. Objective Remarks General: NAD, AAOx3 Chest: chest tube in right chest, course breath sounds/crackles Cardiac: Regular Abd: +BS, soft ND/NT Ext: No edema Procedures Fiberoptic bronchoscopy flexible 10/23/[address] Orona Right thoracoscopy and right middle and lower lobe biopsy on 10/22/[address] Tomlinson A/P Problem List: (1) Fever ICD Codes: R50.9 - Fever, unspecified Status: Acute Plan: Fever Pulmonary nodules/lesions, multiple - Pt is a 62 y/o M with CAD, s/p CABG and RA. Pt follows with Rheumatology, Dr. Kaye. Pt has been on methotrexate in the past. More recently he has been treated with Salagen. - Pt admitted to [facility] on 10/17/17 with c/o fever x 4-5 days and SOB. Pt reports that he has had worsening SOB for at least one year. - Legionella and pneumococcal Ag negative - Influenza Ag negative - Mycoplasma C/W old infection - BC (10/17) negative - Sputum normal resp amish - Chest CT 10/17/17 1. Diffuse interstitial and ground glass opacities with numerous sub-4 mm random nodules sparing the apices and lung bases. Overall pattern is somewhat nonspecific but likely infectious/inflammatory in etiology. Consider atypical infections. 2. Mediastinal adenopathy which is also nonspecific. Again, favor infectious/ inflammatory etiology. - ESR 140 (10/23) - CRP 27 (10/23) - Quantiferon intermediate - Pt was transferred to [facility] on 10/23/17 and underwent Bronchoscopy (10/23/17) with Dr. Orona. - bronchial brushings/washings --> most studies are negative. Cultures ( fungal/mycobacterial) --> pending - cytology --> No malignancy. Hemosiderin laden macrophages - Chest CT 10/26/17 1. Diffuse interstitial disease. This appears unchanged. This could represent chronic interstitial disease. 2. Scattered groundglass opacity and mosaic perfusion pattern likely related to underlying interstitial disease. 3. Nonspecific mild adenopathy in the mediastinum. 4. Splenomegaly. - Case d/w Dr. Orona (10/27/17)and repeat chest CT did NOT show improvement - Pt had lung biopsy and chest tube with Dr Дмитрий albarran 10/29. - Pt was volume overloaded and admitted to ICU after surgery for bipap and diuresis - Pt is on Lasix 40mg PO BID and has been diuresing effectively - All abx stopped per ID as appears unlikely this is infectious - Concern is for RA related pneumonic process. - Surgical cx's with NGTD and path is pending. - PT following and pt able to ambulate down the kiran with PT this morning. - Incentive spirometer Rheumatoid arthritis - Methotrexate, stopped prior to admission. Hypertension - stable - Norvasc 10mg daily, hydralazine 100mg BID, Cozaar 100mg daily Coronary artery disease - stable - s/p CABG 1997 - pt follows with Dr. Damon - ASA, Lopid - Plavix restarted on 10/30 (2) Pulmonary nodules/lesions, multiple ICD Codes: R91.8 - Other nonspecific abnormal finding of lung field Status: Chronic (3) Rheumatoid arthritis ICD Codes: M06.9 - Rheumatoid arthritis, unspecified Status: Chronic (4) Hypertension ICD Codes: I10 - Hypertension Status: Chronic (5) Coronary artery disease ICD Codes: I25.10 - Coronary artery disease Status: Chronic Assessment and Plan Patient examined. Assessment and plan formulated with Torrie Small PA-C. I agree with the above. awaiting lung bx results supportive care PT. will need rheum f/u await removal chest tube. Problem Qualifiers (1) Rheumatoid arthritis: (2) Hypertension: Qualified Codes: I10 - Essential (primary) hypertension (3) Coronary artery disease: Qualified Codes: I25.810 - Atherosclerosis of coronary artery bypass graft(s) without angina pectoris Torrie Small Nov 02, 2017 10:38 Mike Abarca MD Nov 02, 2017 13:52
--- NOTE | 2017-11-02 12:09 | RADRPT ---
EXAM DATE: 11/02/2017 12:01 PM EDT AGE/SEX: 62 years / Male INDICATIONS: Shortness of breath. Evaluate post lung biopsy. CLINICAL DATA: This is the patient's subsequent encounter. Patient reports that signs and symptoms h ave been present for 3 days and indicates a pain score of 0/10. MEDICAL/SURGICAL HISTORY: Cardiovascular disease. Congestive heart failure. Hypertension. CAB G. COMPARISON: [facility] – [place], CHEST SINGLE AP, 10/31/2017. . FINDINGS: Large bore chest tube in place on the right. Cardiomegaly with mild interstitial edema improved in th e interval. No pneumothorax. CONCLUSION: No pneumothorax. Right chest tube in good position. Electronically signed by: Mervin Ozuna MD 11/02/2017 12:07 PM EDT
[2017-11-02] MEDS: ACETAMINOPHEN/HYDROcodone 325 MG/7.5 MG TAB PO PRN ×2 (12:16→21:27)
[2017-11-02 12:29] VITALS: BP 124/58; PULSE 94; RESP 18; TEMP 98.3; O2SAT 96
[2017-11-02 13:25] LABS: BICARBONATE 29.5 MEQ/L (21.0-32.0); CALCIUM 9.1 MG/DL (8.5-10.1); CREATININE 1.37 MG/DL (0.60-1.30)
[2017-11-02 16:41] VITALS: BP 123/58; PULSE 90; RESP 18; TEMP 98.4; O2SAT 93
--- NOTE | 2017-11-02 17:02 | PD.CAR.PN ---
CVT Progress Note Subjective/Hospital Course: Referral received Full consult to roxana Choe 10/28/2017 Full consult dictated Patient scheduled for thoracoscopy and right lung biopsy tomorrow Will restart Lovenox after the surgery 10/30/2017 Patient is status post right thoracoscopy and right lung biopsy Bilateral good breath sounds Small incisions are clean and dry Chest tube in place without pneumothorax and full pulmonary expansion At this point patient is doing better and PO2 FiO2 gradient is greatly improved since after surgery I believe that during the surgery patient received in excess of fluids (1700 cc over 30 minutes), which clearly causes patient to going to pulmonary edema and congestive failure Since then patient was diuresed adequately Plan May transfer to floor from my point Chest tube to waterseal Restart Plavix Likely will remove chest tube tomorrow 10/31/2017 Status post thoracoscopy and lung biopsy Puncture incisions are clean and dry Still a very tiny leak from the right chest tube with minimal drainage In face of the same have to leave the chest tube in for another day at least Chest the will remain on waterseal and likely will be removed tomorrow if the air leak disappears Patient has been waiting for floor bed now for 3 days 11/01/2017 Patient doing well Bilateral pulmonary expansion with dry and clean incisions Chest tube has still a tiny air leak when patient coughs only on Valsalva maneuver We will clamp the chest tube for a few hours and see how patient does and if there is no leak at that point we will remove the chest tube Pathology still pending 11/02/2017 No air leak noted Lungs fully expanded with bilateral good breath sounds Right chest tube removed Chest x-ray tomorrow morning and if okay patient can be discharged from my point Pathology is still pending Objective: Vital Signs Date Time Temp Pulse Resp B/P (MAP) Pulse Ox O2 Delivery O2 Flow Rate FiO2 11/02/17 16:41 98.4 90 18 123/58 (79) 93 11/02/17 13:16 17 11/02/17 12:29 98.3 94 18 124/58 (80) 96 11/02/17 08:32 94 Nasal Cannula 4.00 11/02/17 08:32 98.6 87 18 148/70 (96) 95 11/02/17 04:00 99.1 91 20 136/94 (108) 93 11/02/17 00:00 98.2 91 19 129/62 (84) 94 11/01/17 21:05 Nasal Cannula 4.00 11/01/17 21:05 94 Nasal Cannula 4.00 11/01/17 21:05 94 4.00 11/01/17 20:00 98.4 98 17 134/66 (88) 91 11/01/17 18:48 98.9 88 18 134/63 (86) 95 Labs: Laboratory Tests Test 11/02/17 07:16 Blood Urea Nitrogen 31 MG/DL (7-18) Creatinine 1.37 MG/DL (0.60-1.30) Random Glucose 94 MG/DL (74-106) Calcium Level 9.1 MG/DL (8.5-10.1) Sodium Level 136 MEQ/L (136-145) Potassium Level 3.7 MEQ/L (3.5-5.1) Chloride Level 96 MEQ/L (98-107) Carbon Dioxide Level 29.5 MEQ/L (21.0-32.0) Anion Gap 11 MEQ/L (5-15) Estimat Glomerular Filtration Rate 53 ML/MIN (>89) Result Diagram: 11/02/17 0716 Benita Tomlinson MD Nov 02, 2017 17:02
--- NOTE | 2017-11-02 18:37 | HHI.PR ---
Subjective Remarks 62 YO male with Fever, Lung infilt, mild sob On Abx Had VATS Rt chest tube draining On NC family at BS Objective Vital Signs Vital Signs Date Time Temp Pulse Resp B/P (MAP) Pulse Ox O2 Delivery O2 Flow Rate FiO2 11/02/17 16:41 98.4 90 18 123/58 (79) 93 11/02/17 13:16 17 11/02/17 12:29 98.3 94 18 124/58 (80) 96 11/02/17 08:32 94 Nasal Cannula 4.00 11/02/17 08:32 98.6 87 18 148/70 (96) 95 11/02/17 04:00 99.1 91 20 136/94 (108) 93 11/02/17 00:00 98.2 91 19 129/62 (84) 94 11/01/17 21:05 Nasal Cannula 4.00 11/01/17 21:05 94 Nasal Cannula 4.00 11/01/17 21:05 94 4.00 11/01/17 20:00 98.4 98 17 134/66 (88) 91 11/01/17 18:48 98.9 88 18 134/63 (86) 95 I/O 11/01/17 11/01/17 11/01/17 11/02/17 11/02/17 11/02/17 07:00 15:00 23:00 07:00 15:00 23:00 Intake Total 480 ml 480 ml 700 ml Output Total 670 ml 1880 ml 900 ml 710 ml Balance -190 ml -1400 ml -200 ml -710 ml Intake Oral 480 ml 480 ml 700 ml Output Urine Total 650 ml 1825 ml 900 ml 650 ml Chest Tube Drainage Total 30 ml 60 ml Drainage Total 20 ml 25 ml # Bowel Movements 0 Result Diagram: 11/02/17 0716 Objective Remarks GENERAL: Obese male, mild sob SKIN: Warm and dry. HEAD: Normocephalic. EYES: No scleral icterus. No injection or drainage. NECK: Supple, trachea midline. No JVD or lymphadenopathy. CARDIOVASCULAR: Regular rate and rhythm without murmurs, gallops, or rubs. RESPIRATORY: Breath sounds equal bilaterally. No accessory muscle use. Bilat rhonchi GASTROINTESTINAL: Abdomen soft, non-tender, nondistended. MUSCULOSKELETAL: No cyanosis, or edema. BACK: Nontender without obvious deformity. No CVA tenderness. A/P Assessment and Plan IMPESSION: Pneumonia Fever CAD HTN RH Arthritis S/P VATS PLAN: Cont Abx Supplement 02 Chest tube to water seal Check Bx result DW Dr. Farmer, pathologist Will check, p ANCA,RA,SANJAY. Jovany Lagunas MD Nov 02, 2017 18:37
[2017-11-02 20:00] VITALS: BP 121/57; PULSE 91; RESP 19; TEMP 99.4; O2SAT 94
[2017-11-03] VITALS (8 sets, daily range): BP systolic 117–151; BP diastolic 55–69; PULSE 83–90; RESP 17–18; TEMP 98–98.7; O2SAT 93–96
[2017-11-03 01:56] LABS: RHEUMATOID FACTOR SCREEN NEGATIVE (NEGATIVE)
--- NOTE | 2017-11-03 06:22 | RADRPT ---
EXAM DATE: 11/03/2017 5:46 AM EDT AGE/SEX: 62 years / Male INDICATIONS: Post chest tube removal. CLINICAL DATA: This is the patient's initial encounter. Patient reports that signs and symptoms have been present for 1 day and indicates a pain score of 0/10. MEDICAL/SURGICAL HISTORY: . Cardiovascular disease. Congestive heart failure. Hypertension. . CABG. COMPARISON: [facility] – [place], CHEST SINGLE AP, 11/02/2017. . FINDINGS: A single AP view of the chest demonstrates bibasilar patchy consolidation. Status post CABG. Heart no rmal in size. Right-sided chest tube removed with tiny residual apical pneumothorax. The cardiomedia stinal contours are unremarkable. Osseous structures are intact. CONCLUSION: Right-sided chest tube removal with tiny residual pneumothorax. Bibasilar patchy airspace disease, stable. Electronically signed by: Tavon Mace MD 11/03/2017 6:21 AM EDT
[2017-11-03 08:13] LABS: AUTOMATED NEUTROPHIL # 5.9 TH/MM3 (1.8-7.7); BASOPHIL # 0.1 TH/MM3 (0-0.2); BASOPHIL % 1.1 % (0.0-2.0); EOSINOPHIL # 0.6 TH/MM3 (0-0.4); EOSINOPHIL % 7.1 % (0.0-4.0); HEMOGLOBIN 11.3 GM/DL (13.0-17.0); LYMPH % 15.4 % (9.0-44.0); LYMPHOCYTE # 1.4 TH/MM3 (1.0-4.8); MEAN CELL VOLUME 82.4 FL (80.0-100.0); MEAN CORPUSCULAR HEMOGLOBIN 26.7 PG (27.0-34.0); MEAN CORPUSCULAR HGB CONC 32.4 % (32.0-36.0); MEAN PLATELET VOLUME 7.9 FL (7.0-11.0); MONO % 10.2 % (0.0-8.0); MONOCYTE # 0.9 TH/MM3 (0-0.9); NEUT % 66.2 % (16.0-70.0); PLATELET COUNT 435 TH/MM3 (150-450); RED BLOOD COUNT 4.25 MIL/MM3 (4.50-5.90); RED CELL DISTRIBUTION WIDTH 19.8 % (11.6-17.2); WHITE BLOOD COUNT 8.9 TH/MM3 (4.0-11.0)
[2017-11-03 08:27] LABS: BICARBONATE 28.1 MEQ/L (21.0-32.0); CREATININE 1.57 MG/DL (0.60-1.30); MAGNESIUM 2.2 MG/DL (1.5-2.5)
[2017-11-03] MEDS: FOLIC ACID 1 MG TAB PO SCH (08:59)
[2017-11-03] MEDS: LOSARTAN 50 MG TAB PO SCH (08:59)
[2017-11-03] MEDS: CLOPIDOGREL 75 MG TAB PO SCH (09:00)
[2017-11-03] MEDS: ASPIRIN EC 81 MG TABEC PO SCH (09:00)
[2017-11-03] MEDS: GEMFIBROZIL 600 MG TAB PO SCH ×2 (09:01→16:14)
[2017-11-03] MEDS: hydrALAZINE HCL 50 MG TAB PO SCH ×2 (09:02→20:46)
[2017-11-03] MEDS: CYANOCOBALAMIN 1,000 MCG TAB PO SCH ×2 (09:02→20:46)
[2017-11-03] MEDS: DOCUSATE SODIUM 100 MG CAP PO SCH ×2 (09:02→20:47)
[2017-11-03] MEDS: POTASSIUM CHLORIDE 10 MEQ CONTROLLED RELEASE TAB PO SCH (10:18)
--- NOTE | 2017-11-03 11:41 | HHI.PR ---
Subjective Remarks Patient is sitting in chair in NAD. s/p CT removal. Objective Vital Signs Vital Signs Date Time Temp Pulse Resp B/P (MAP) Pulse Ox O2 Delivery O2 Flow Rate FiO2 11/03/17 10:19 Nasal Cannula 3.00 11/03/17 08:32 98.1 89 18 133/58 (83) 95 11/03/17 04:00 98.1 89 17 151/69 (96) 96 11/03/17 01:45 95 Nasal Cannula 4.00 11/03/17 00:00 98.0 90 18 140/64 (89) 96 11/02/17 20:00 99.4 91 19 121/57 (78) 94 11/02/17 19:54 Nasal Cannula 4.00 11/02/17 16:41 98.4 90 18 123/58 (79) 93 11/02/17 13:16 17 11/02/17 12:29 98.3 94 18 124/58 (80) 96 I/O 11/02/17 11/02/17 11/02/17 11/03/17 11/03/17 11/03/17 07:00 15:00 23:00 07:00 15:00 23:00 Intake Total 700 ml Output Total 900 ml 710 ml 600 ml Balance -200 ml -710 ml -600 ml Intake Oral 700 ml Output Urine Total 900 ml 650 ml 600 ml Chest Tube Drainage Total 60 ml # Bowel Movements 1 Result Diagram: 11/03/17 0749 11/03/17 0749 Other Results Last Impressions Chest X-Ray 11/03/17 0600 Signed Impressions: CONCLUSION: Right-sided chest tube removal with tiny residual pneumothorax. Bibasilar patchy airspace disease, stable. Chest CT 10/26/17 0000 Signed Impressions: CONCLUSION: 1. Diffuse interstitial disease. This appears unchanged. This could represent chronic interstitial disease. 2. Scattered groundglass opacity and mosaic perfusion pattern likely related t o underlying interstitial disease. 3. Nonspecific mild adenopathy in the mediastinum. 4. Splenomegaly. Objective Remarks GENERAL: Obese male, sitting in chair in NAD SKIN: Warm and dry. HEAD: Normocephalic. EYES: No scleral icterus. No injection or drainage. NECK: Supple, trachea midline. No JVD or lymphadenopathy. CARDIOVASCULAR: Regular rate and rhythm without murmurs, gallops, or rubs. RESPIRATORY: Breath sounds equal bilaterally. No accessory muscle use. GASTROINTESTINAL: Abdomen soft, non-tender, nondistended. MUSCULOSKELETAL: No cyanosis, or edema. Neuro: Awake and alert A/P Assessment and Plan Resp Insuff Pneumonia Status post thoracoscopy and lung biopsy ILD CAD HTN RH Arthritis NITZA PLAN: Cont with oxygen keep sats >92% Bronchodilators CXR [id number] chest tube removal with tiny residual pneumothorax. Bibasilar patchy airspace disease, Path showed organizing pulmonary hemorrhage with capillaritis. Cytology negative for malignancy RF negative, follow up on SANJAY Check CXR in am Asses for home oxygen prior to discharge Continue treatment plan Daniela Benjamin MD Nov 03, 2017 11:41
[2017-11-03] MEDS ORDERED: RESP: ALBUTEROL 2.5 MG/IPRATROPIUM 0.5 MG NEB (PRN) NEB (11:45)
--- NOTE | 2017-11-03 12:18 | PD.CAR.PN ---
CVT Progress Note Subjective/Hospital Course: Referral received Full consult to roxana Choe 10/28/2017 Full consult dictated Patient scheduled for thoracoscopy and right lung biopsy tomorrow Will restart Lovenox after the surgery 10/30/2017 Patient is status post right thoracoscopy and right lung biopsy Bilateral good breath sounds Small incisions are clean and dry Chest tube in place without pneumothorax and full pulmonary expansion At this point patient is doing better and PO2 FiO2 gradient is greatly improved since after surgery I believe that during the surgery patient received in excess of fluids (1700 cc over 30 minutes), which clearly causes patient to going to pulmonary edema and congestive failure Since then patient was diuresed adequately Plan May transfer to floor from my point Chest tube to waterseal Restart Plavix Likely will remove chest tube tomorrow 10/31/2017 Status post thoracoscopy and lung biopsy Puncture incisions are clean and dry Still a very tiny leak from the right chest tube with minimal drainage In face of the same have to leave the chest tube in for another day at least Chest the will remain on waterseal and likely will be removed tomorrow if the air leak disappears Patient has been waiting for floor bed now for 3 days 11/01/2017 Patient doing well Bilateral pulmonary expansion with dry and clean incisions Chest tube has still a tiny air leak when patient coughs only on Valsalva maneuver We will clamp the chest tube for a few hours and see how patient does and if there is no leak at that point we will remove the chest tube Pathology still pending 11/02/2017 No air leak noted Lungs fully expanded with bilateral good breath sounds Right chest tube removed Chest x-ray tomorrow morning and if okay patient can be discharged from my point Pathology is still pending 11/03/2017 Lungs fully expanded tiny apical pneumothorax is non-consequential Incisions clean and dry Pathology returned as benign disease with possible immune background and this is further for medicine to sort out Nothing to add from surgery From my point patient can be discharged any time Objective: Vital Signs Date Time Temp Pulse Resp B/P (MAP) Pulse Ox O2 Delivery O2 Flow Rate FiO2 11/03/17 12:07 98.3 88 18 117/55 (75) 93 11/03/17 10:19 Nasal Cannula 3.00 11/03/17 08:32 98.1 89 18 133/58 (83) 95 11/03/17 04:00 98.1 89 17 151/69 (96) 96 11/03/17 01:45 95 Nasal Cannula 4.00 11/03/17 00:00 98.0 90 18 140/64 (89) 96 11/02/17 20:00 99.4 91 19 121/57 (78) 94 11/02/17 19:54 Nasal Cannula 4.00 11/02/17 16:41 98.4 90 18 123/58 (79) 93 11/02/17 13:16 17 11/02/17 12:29 98.3 94 18 124/58 (80) 96 Labs: Laboratory Tests Test 11/03/17 07:49 White Blood Count 8.9 TH/MM3 (4.0-11.0) Red Blood Count 4.25 MIL/MM3 (4.50-5.90) Hemoglobin 11.3 GM/DL (13.0-17.0) Hematocrit 35.0 % (39.0-51.0) Mean Corpuscular Volume 82.4 FL (80.0-100.0) Mean Corpuscular Hemoglobin 26.7 PG (27.0-34.0) Mean Corpuscular Hemoglobin Concent 32.4 % (32.0-36.0) Red Cell Distribution Width 19.8 % (11.6-17.2) Platelet Count 435 TH/MM3 (150-450) Mean Platelet Volume 7.9 FL (7.0-11.0) Neutrophils (%) (Auto) 66.2 % (16.0-70.0) Lymphocytes (%) (Auto) 15.4 % (9.0-44.0) Monocytes (%) (Auto) 10.2 % (0.0-8.0) Eosinophils (%) (Auto) 7.1 % (0.0-4.0) Basophils (%) (Auto) 1.1 % (0.0-2.0) Neutrophils # (Auto) 5.9 TH/MM3 (1.8-7.7) Lymphocytes # (Auto) 1.4 TH/MM3 (1.0-4.8) Monocytes # (Auto) 0.9 TH/MM3 (0-0.9) Eosinophils # (Auto) 0.6 TH/MM3 (0-0.4) Basophils # (Auto) 0.1 TH/MM3 (0-0.2) CBC Comment DIFF FINAL Differential Comment Blood Urea Nitrogen 36 MG/DL (7-18) Creatinine 1.57 MG/DL (0.60-1.30) Random Glucose 116 MG/DL (74-106) Calcium Level 9.0 MG/DL (8.5-10.1) Magnesium Level 2.2 MG/DL (1.5-2.5) Sodium Level 134 MEQ/L (136-145) Potassium Level 3.8 MEQ/L (3.5-5.1) Chloride Level 97 MEQ/L (98-107) Carbon Dioxide Level 28.1 MEQ/L (21.0-32.0) Anion Gap 9 MEQ/L (5-15) Estimat Glomerular Filtration Rate 45 ML/MIN (>89) Result Diagram: 11/03/17 0749 11/03/17 0749 Benita Tomlinson MD Nov 03, 2017 12:18
--- NOTE | 2017-11-03 12:52 | HHI.PR ---
Subjective Remarks Pt had CT removed Still on 3L NC and states that he has supplemental O2 set up at home He is anxious for discharge. Objective Vitals Vital Signs Date Time Temp Pulse Resp B/P (MAP) Pulse Ox O2 Delivery O2 Flow Rate FiO2 11/03/17 12:07 98.3 88 18 117/55 (75) 93 11/03/17 10:19 Nasal Cannula 3.00 11/03/17 08:32 98.1 89 18 133/58 (83) 95 11/03/17 04:00 98.1 89 17 151/69 (96) 96 11/03/17 01:45 95 Nasal Cannula 4.00 11/03/17 00:00 98.0 90 18 140/64 (89) 96 11/02/17 20:00 99.4 91 19 121/57 (78) 94 11/02/17 19:54 Nasal Cannula 4.00 11/02/17 16:41 98.4 90 18 123/58 (79) 93 11/02/17 13:16 17 11/03/17 11/03/17 11/04/17 15:00 23:00 07:00 Output Total 600 ml Balance -600 ml Output Urine Total 600 ml # Bowel Movements 1 Result Diagram: 11/03/17 0749 11/03/17 0749 Other Results Laboratory Tests Test 11/02/17 07:16 11/03/17 07:49 Blood Urea Nitrogen 31 MG/DL 36 MG/DL Creatinine 1.37 MG/DL 1.57 MG/DL Random Glucose 94 MG/DL 116 MG/DL Calcium Level 9.1 MG/DL 9.0 MG/DL Sodium Level 136 MEQ/L 134 MEQ/L Potassium Level 3.7 MEQ/L 3.8 MEQ/L Chloride Level 96 MEQ/L 97 MEQ/L Carbon Dioxide Level 29.5 MEQ/L 28.1 MEQ/L Anion Gap 11 MEQ/L 9 MEQ/L Estimat Glomerular Filtration Rate 53 ML/MIN 45 ML/MIN Rheumatoid Factor Screen NEGATIVE Rheumatoid Factor Titer IU/ML White Blood Count 8.9 TH/MM3 Red Blood Count 4.25 MIL/MM3 Hemoglobin 11.3 GM/DL Hematocrit 35.0 % Mean Corpuscular Volume 82.4 FL Mean Corpuscular Hemoglobin 26.7 PG Mean Corpuscular Hemoglobin Concent 32.4 % Red Cell Distribution Width 19.8 % Platelet Count 435 TH/MM3 Mean Platelet Volume 7.9 FL Neutrophils (%) (Auto) 66.2 % Lymphocytes (%) (Auto) 15.4 % Monocytes (%) (Auto) 10.2 % Eosinophils (%) (Auto) 7.1 % Basophils (%) (Auto) 1.1 % Neutrophils # (Auto) 5.9 TH/MM3 Lymphocytes # (Auto) 1.4 TH/MM3 Monocytes # (Auto) 0.9 TH/MM3 Eosinophils # (Auto) 0.6 TH/MM3 Basophils # (Auto) 0.1 TH/MM3 CBC Comment DIFF FINAL Differential Comment Magnesium Level 2.2 MG/DL Imaging Last Impressions Chest X-Ray 10/31/17 0500 Signed Impressions: CONCLUSION: No significant interval change. Persistent bilateral pulmonary parenchymal opac ity. Right-sided chest tube again seen. No evidence of pneumothorax. Chest CT 10/26/17 0000 Signed Impressions: CONCLUSION: 1. Diffuse interstitial disease. This appears unchanged. This could represent chronic interstitial disease. 2. Scattered groundglass opacity and mosaic perfusion pattern likely related t o underlying interstitial disease. 3. Nonspecific mild adenopathy in the mediastinum. 4. Splenomegaly. Last Impressions Chest CT 10/26/17 0000 Signed Impressions: CONCLUSION: 1. Diffuse interstitial disease. This appears unchanged. This could represent chronic interstitial disease. 2. Scattered groundglass opacity and mosaic perfusion pattern likely related t o underlying interstitial disease. 3. Nonspecific mild adenopathy in the mediastinum. 4. Splenomegaly. Chest X-Ray 10/25/17 0000 Signed Impressions: CONCLUSION: Slight improvement in aeration. Objective Remarks General: NAD, AAOx3 Chest: Breath sounds equal bilaterally Cardiac: Regular Abd: +BS, soft ND/NT Ext: No edema Procedures Fiberoptic bronchoscopy flexible 10/23/[address] Orona Right thoracoscopy and right middle and lower lobe biopsy on 10/22/[address] Tomlinson A/P Problem List: (1) Fever ICD Codes: R50.9 - Fever, unspecified Status: Acute Plan: Fever Pulmonary nodules/lesions, multiple - Pt is a 62 y/o M with CAD, s/p CABG and RA. Pt follows with Rheumatology, Dr. Kaye. Pt has been on methotrexate in the past. More recently he has been treated with Salagen. - Pt admitted to [facility] on 10/17/17 with c/o fever x 4-5 days and SOB. Pt reports that he has had worsening SOB for at least one year. - Legionella and pneumococcal Ag negative - Influenza Ag negative - Mycoplasma C/W old infection - BC (10/17) negative - Sputum normal resp amish - Chest CT 10/17/17 1. Diffuse interstitial and ground glass opacities with numerous sub-4 mm random nodules sparing the apices and lung bases. Overall pattern is somewhat nonspecific but likely infectious/inflammatory in etiology. Consider atypical infections. 2. Mediastinal adenopathy which is also nonspecific. Again, favor infectious/ inflammatory etiology. - ESR 140 (10/23) - CRP 27 (10/23) - Quantiferon intermediate - Pt was transferred to [facility] on 10/23/17 and underwent Bronchoscopy (10/23/17) with Dr. Orona. - bronchial brushings/washings --> most studies are negative. Cultures ( fungal/mycobacterial) --> pending - cytology --> No malignancy. Hemosiderin laden macrophages - Chest CT 10/26/17 1. Diffuse interstitial disease. This appears unchanged. This could represent chronic interstitial disease. 2. Scattered groundglass opacity and mosaic perfusion pattern likely related to underlying interstitial disease. 3. Nonspecific mild adenopathy in the mediastinum. 4. Splenomegaly. - Case d/w Dr. Orona (10/27/17)and repeat chest CT did NOT show improvement - Pt had lung biopsy and chest tube with Dr Choe on 10/29. - Pt was volume overloaded and admitted to ICU after surgery for bipap and diuresis - Pt is on Lasix 40mg PO BID and has been diuresing effectively. Lasix held on due to cramping and elevating Cr - All abx stopped per ID as appears unlikely this is infectious - pt has been afebrile since 10/23/17 - Concern is for RA related pneumonic process. - Surgical cx's with NGTD and path noting alveolar hemorrhage with capillaritis - RF is negative - SANJAY is pending - PT following and pt able to ambulate down the kiran with PT this morning. - Incentive spirometer Rheumatoid arthritis - Methotrexate, stopped prior to admission. Hypertension - stable - Norvasc 10mg daily, hydralazine 100mg BID, Cozaar 100mg daily Coronary artery disease - stable - s/p CABG 1997 - pt follows with Dr. Damon - ASA, Lopid - Plavix restarted on 10/30 (2) Pulmonary nodules/lesions, multiple ICD Codes: R91.8 - Other nonspecific abnormal finding of lung field Status: Chronic (3) Rheumatoid arthritis ICD Codes: M06.9 - Rheumatoid arthritis, unspecified Status: Chronic (4) Hypertension ICD Codes: I10 - Hypertension Status: Chronic (5) Coronary artery disease ICD Codes: I25.10 - Coronary artery disease Status: Chronic Assessment and Plan Patient examined. Assessment and plan formulated with Torrie Small PA-C. I agree with the above. awaiting lung bx results supportive care PT. will need rheum f/u await removal chest tube. Problem Qualifiers (1) Rheumatoid arthritis: (2) Hypertension: Qualified Codes: I10 - Essential (primary) hypertension (3) Coronary artery disease: Qualified Codes: I25.810 - Atherosclerosis of coronary artery bypass graft(s) without angina pectoris Torrie Small Nov 03, 2017 12:52
--- NOTE | 2017-11-03 14:36 | HHI.FF ---
Face to Face Verification Diagnosis: (1) Abnormal immunological findings in specimens from respiratory organs and thorax (2) Pulmonary hypertension (3) Hypertension (4) Coronary artery disease (5) Rheumatoid arthritis (6) Fever (7) Chronic diastolic congestive heart failure (8) Hyperlipidemia Physical Therapy Order: Evaluate and Treat Home Health Nursing Order: Medical education Signs/symptoms of disease process Oxygen administration education Nursing assessment with vital signs I have seen patient Miriam Mccray on 11/03/17. My clinical findings support the need for the requested home health care services because: Patient has SOB Deconditioned w/ increased weakness I certify that my clinical findings support that this patient is homebound because: Unsteady gait/balance Torrie Small Nov 03, 2017 14:36 Mike Abarca MD Nov 04, 2017 11:24
[2017-11-03] MEDS: RESP: ALBUTEROL 2.5 MG/IPRATROPIUM 0.5 MG NEB (SCH) NEB ×2 (16:21→19:32)
[2017-11-04] VITALS: BP 121/58; PULSE 92; RESP 18; TEMP 98.6; O2SAT 94
[2017-11-04] MEDS: RESP: ALBUTEROL 2.5 MG/IPRATROPIUM 0.5 MG NEB (SCH) NEB ×2 (03:11→08:26)
[2017-11-04 03:13] VITALS: O2SAT 95
[2017-11-04 04:00] VITALS: BP 154/66; PULSE 85; RESP 19; TEMP 98; O2SAT 96
--- NOTE | 2017-11-04 06:40 | RADRPT ---
EXAM DATE: 11/04/2017 5:39 AM EDT AGE/SEX: 62 years / Male INDICATIONS: Infiltrates. CLINICAL DATA: This is the patient's subsequent encounter. Patient reports that signs and symptoms h ave been present for 1 week and indicates a pain score of 3/10. MEDICAL/SURGICAL HISTORY: . Cardiovascular disease. Congestive heart failure. Hypertension. CABG. COMPARISON: [facility] [place], CHEST SINGLE AP, 11/03/2017. . FINDINGS: A single AP view of the chest demonstrates the bibasilar patchy densities. Cardiomegaly and CABG.. T he cardiomediastinal contours are unremarkable. Osseous structures are intact. CONCLUSION: Bibasilar patchy densities Electronically signed by: Tavon Mace MD 11/04/2017 6:39 AM EDT
[2017-11-04 08:28] VITALS: O2SAT 96
[2017-11-04 08:30] VITALS: BP 131/64; PULSE 82; RESP 18; TEMP 98.2; O2SAT 94
[2017-11-04 08:51] LABS: BICARBONATE 30.4 MEQ/L (21.0-32.0); CALCIUM 8.8 MG/DL (8.5-10.1); CREATININE 1.45 MG/DL (0.60-1.30)
[2017-11-04] MEDS: GEMFIBROZIL 600 MG TAB PO SCH (09:10)
[2017-11-04] MEDS: LOSARTAN 50 MG TAB PO SCH (09:11)
[2017-11-04] MEDS: DOCUSATE SODIUM 100 MG CAP PO SCH (09:11)
[2017-11-04] MEDS: ASPIRIN EC 81 MG TABEC PO SCH (09:12)
[2017-11-04] MEDS: CYANOCOBALAMIN 1,000 MCG TAB PO SCH (09:13)
[2017-11-04] MEDS: FOLIC ACID 1 MG TAB PO SCH (09:13)
[2017-11-04] MEDS: POTASSIUM CHLORIDE 10 MEQ CONTROLLED RELEASE TAB PO SCH (09:15)
[2017-11-04] MEDS: hydrALAZINE HCL 50 MG TAB PO SCH (09:16)
--- NOTE | 2017-11-04 10:49 | HHI.DCPOC ---
Discharge Care Plan Diagnosis: (1) Pulmonary nodules/lesions, multiple (2) Rheumatoid arthritis Goals to Promote Your Health * To prevent worsening of your condition and complications * To maintain your health at the optimal level Directions to Meet Your Goals Take your medications as prescribed Follow your dietary instruction Follow activity as directed Keep your appointments as scheduled Take your immunizations and boosters as scheduled If your symptoms worsen call your PCP, if no PCP go to Urgent Care Center or Emergency Room Smoking is Dangerous to Your Health. Avoid second hand smoke Call the 24-hour hour crisis hotline for domestic abuse at Mike Abarca MD Nov 04, 2017 10:49
--- NOTE | 2017-11-04 10:55 | HHI.DS ---
Discharge Summary Admission Date October 17, 2017 at 19:30 Discharge Date: Nov 04, 2017 Admitting Diagnosis PNEUMONIA, FEVER (1) Fever Diagnosis: Principal ICD Codes: R50.9 - Fever, unspecified Status: Acute (2) Pulmonary nodules/lesions, multiple Diagnosis: Principal ICD Codes: R91.8 - Other nonspecific abnormal finding of lung field Status: Chronic (3) Rheumatoid arthritis Diagnosis: Principal ICD Codes: M06.9 - Rheumatoid arthritis, unspecified Status: Chronic (4) Hypertension Diagnosis: Secondary ICD Codes: I10 - Hypertension Status: Chronic (5) Coronary artery disease Diagnosis: Secondary ICD Codes: I25.10 - Coronary artery disease Status: Chronic Procedures Fiberoptic bronchoscopy flexible 10/23/[address] Orona Right thoracoscopy and right middle and lower lobe biopsy on 10/22/[address] Tomlinson CBC/BMP: 11/03/17 0749 11/04/17 0615 Significant Findings Laboratory Tests Test 11/02/17 07:16 11/03/17 07:49 11/04/17 06:15 Blood Urea Nitrogen 31 MG/DL (7-18) 36 MG/DL (7-18) 36 MG/DL (7-18) Creatinine 1.37 MG/DL (0.60-1.30) 1.57 MG/DL (0.60-1.30) 1.45 MG/DL (0.60-1.30) Chloride Level 96 MEQ/L (98-107) 97 MEQ/L (98-107) 95 MEQ/L (98-107) Estimat Glomerular Filtration Rate 53 ML/MIN (>89) 45 ML/MIN (>89) 50 ML/MIN (>89) Red Blood Count 4.25 MIL/MM3 (4.50-5.90) Hemoglobin 11.3 GM/DL (13.0-17.0) Hematocrit 35.0 % (39.0-51.0) Mean Corpuscular Hemoglobin 26.7 PG (27.0-34.0) Red Cell Distribution Width 19.8 % (11.6-17.2) Monocytes (%) (Auto) 10.2 % (0.0-8.0) Eosinophils (%) (Auto) 7.1 % (0.0-4.0) Eosinophils # (Auto) 0.6 TH/MM3 (0-0.4) Random Glucose 116 MG/DL (74-106) Sodium Level 134 MEQ/L (136-145) 134 MEQ/L (136-145) Hospital Course A/P Problem List: Fever Pulmonary nodules/lesions, multiple - Pt is a 62 y/o M with CAD, s/p CABG and RA. Pt follows with Rheumatology, Dr. Kaye. Pt has been on dmards and biologicals in the past. - Pt admitted to [facility] on 10/17/17 with c/o fever x 4-5 days and SOB. Pt reports that he has had worsening SOB for at least one year. - Legionella and pneumococcal Ag negative - Influenza Ag negative - Mycoplasma C/W old infection - BC (10/17) negative - Sputum normal resp amish - Chest CT 10/17/17 1. Diffuse interstitial and ground glass opacities with numerous sub-4 mm random nodules sparing the apices and lung bases. Overall pattern is somewhat nonspecific but likely infectious/inflammatory in etiology. Consider atypical infections. 2. Mediastinal adenopathy which is also nonspecific. Again, favor infectious/ inflammatory etiology. - ESR 140 (10/23) - CRP 27 (10/23) - Quantiferon intermediate - Pt was transferred to [facility] on 10/23/17 and underwent Bronchoscopy (10/23/17) with Dr. Orona. - bronchial brushings/washings --> most studies are negative. Cultures ( fungal/mycobacterial) --> ngtd - cytology --> No malignancy. Hemosiderin laden macrophages - Chest CT 10/26/17 1. Diffuse interstitial disease. This appears unchanged. This could represent chronic interstitial disease. 2. Scattered groundglass opacity and mosaic perfusion pattern likely related to underlying interstitial disease. 3. Nonspecific mild adenopathy in the mediastinum. 4. Splenomegaly. - Case d/w Dr. Orona (10/27/17)and repeat chest CT did NOT show improvement - Pt had lung biopsy and chest tube with Dr Choe on 10/29. - Pt was volume overloaded and admitted to ICU after surgery for bipap and diuresis - Pt is on Lasix 40mg PO BID and has been diuresing effectively. Lasix held on due to cramping and elevating Cr - All abx stopped per ID as appears unlikely this is infectious - pt has been afebrile since 10/23/17 - Concern is for RA related pneumonic process. - Surgical cx's with NGTD and path noting alveolar hemorrhage with capillaritis - RF is negative - SANJAY is pending - PT following and pt able to ambulate down the kiran with PT this morning. - Incentive spirometer Pt would like to be discharged home today. He is on oxygen. 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 His lung bx suggests an immunological process. 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 He doesn't consult inpt anymore. It is the weekend and his will call Sunday for an appt. Rheumatoid arthritis - Methotrexate, stopped prior to admission. Hypertension - stable - Norvasc 10mg daily, hydralazine 100mg BID, Cozaar 100mg daily Coronary artery disease - stable - s/p CABG 1997 - pt follows with Dr. Damon - ASA, Lopid - Plavix restarted on 10/30 (2) Pulmonary nodules/lesions, multiple ICD Codes: R91.8 - Other nonspecific abnormal finding of lung field Status: Chronic (3) Rheumatoid arthritis ICD Codes: M06.9 - Rheumatoid arthritis, unspecified Status: Chronic (4) Hypertension ICD Codes: I10 - Hypertension Status: Chronic (5) Coronary artery disease ICD Codes: I25.10 - Coronary artery disease Status: Chronic Pt Condition on Discharge: Stable Discharge Disposition: Discharge Home Discharge Instructions DIET: Follow Instructions for: Heart Healthy Diet Activities you can perform: Regular-No Restrictions Follow up Referrals: Allergy & Immunology - [address] Akins PCP Follow-up - [address] Dmitri Rivas Pulmonology - 2 Weeks with Adwoa Orona MD New Medications: Oxygen (O2) (Oxygen (O2)) Device LITER JUVENCIO.CANULA CONTINUOUS PRN for pneumonia, pulmonary hypertens, #2 Oxygen Concentrator Portable Gaseous 2 L/min via Nasal Canula Continuous For 99 months Continued Medications: Amlodipine (Amlodipine) 10 Mg Tab 10 MG PO DAILY for Blood Pressure Management, #30 TAB 0 Refills Aspirin (Aspirin) 325 Mg Tab 325 MG PO DAILY, #30 TAB 0 Refills Coenzyme Q10 (Ubidecarenone) (Coq-10) 50 Mg Cap 1 CAP PO BID Cyanocobalamin (B12) 1,000 Mcg Tab 1 TAB PO BID Ferrous Sulfate (Ferrous Sulfate) 325 Mg (65 Mg Iron) Tablet 325 MG PO DAILY for Nutritional Supplement, #30 TAB 0 Refills Folic Acid (Folic Acid) 0.4 Mg Tab 1 MG PO DAILY for Nutritional Supplement, TAB 0 Refills Furosemide (Furosemide) 40 Mg Tab 40 MG PO BID, #60 TAB 0 Refills Gemfibrozil (Gemfibrozil) 600 Mg Tab 600 MG PO BIDAC, #60 TAB 0 Refills Take 30 minutes prior to breakfast and dinner. Hydralazine (Hydralazine) 100 Mg Tab 100 MG PO BID for Blood Pressure Management, TAB 0 Refills Take with meals Losartan (Losartan) 100 Mg Tab 100 MG PO DAILY for Blood Pressure Management, #30 TAB 0 Refills Melatonin (Melatonin) 10 Mg-1 Mg Tab 300 MCG PO HS PRN for SLEEP, TAB 0 Refills Methotrexate (Methotrexate) 2.5 Mg Tab 20 MG PO Q7D, TAB 0 Refills Plant Sterols and Stanols (Cholestoff) 450 Mg Tab 1 TAB PO BID [Fish oil] () 1000 MG PO BID Mike Abarca MD Nov 04, 2017 10:55
--- NOTE | 2017-11-04 11:15 | HHI.PR ---
Subjective Remarks Patient is sitting in chair in NAD. For possible discharge today. Objective Vital Signs Vital Signs Date Time Temp Pulse Resp B/P (MAP) Pulse Ox O2 Delivery O2 Flow Rate FiO2 11/04/17 08:30 98.2 82 18 131/64 (86) 94 11/04/17 08:28 96 Nasal Cannula 4.00 11/04/17 04:00 98.0 85 19 154/66 (95) 96 11/04/17 03:13 95 Nasal Cannula 4.00 11/04/17 00:00 98.6 92 18 121/58 (79) 94 11/03/17 20:41 Nasal Cannula 4.00 11/03/17 20:00 98.7 87 17 149/67 (94) 94 11/03/17 19:32 95 Nasal Cannula 3.00 11/03/17 16:36 98.0 83 18 132/60 (84) 93 11/03/17 12:07 98.3 88 18 117/55 (75) 93 I/O 11/03/17 11/03/17 11/03/17 11/04/17 11/04/17 11/04/17 07:00 15:00 23:00 07:00 15:00 23:00 Output Total 600 ml Balance -600 ml Output Urine Total 600 ml # Bowel Movements 1 Result Diagram: 11/03/17 0749 11/04/17 0615 Other Results Last Impressions Chest X-Ray 11/04/17 0600 Signed Impressions: CONCLUSION: Bibasilar patchy densities Chest CT 10/26/17 0000 Signed Impressions: CONCLUSION: 1. Diffuse interstitial disease. This appears unchanged. This could represent chronic interstitial disease. 2. Scattered groundglass opacity and mosaic perfusion pattern likely related t o underlying interstitial disease. 3. Nonspecific mild adenopathy in the mediastinum. 4. Splenomegaly. Objective Remarks GENERAL: Obese male, sitting in chair in NAD SKIN: Warm and dry. HEAD: Normocephalic. EYES: No scleral icterus. No injection or drainage. NECK: Supple, trachea midline. No JVD or lymphadenopathy. CARDIOVASCULAR: Regular rate and rhythm without murmurs, gallops, or rubs. RESPIRATORY: Breath sounds equal bilaterally. No accessory muscle use. GASTROINTESTINAL: Abdomen soft, non-tender, nondistended. MUSCULOSKELETAL: No cyanosis, or edema. Neuro: Awake and alert A/P Assessment and Plan Resp Insuff Pneumonia Status post thoracoscopy and lung biopsy ILD CAD HTN RH Arthritis NITZA PLAN: Cont with oxygen keep sats >92% Bronchodilators, CXR today-bibasilar patchy densities Path showed organizing pulmonary hemorrhage with capillaritis. Cytology negative for malignancy RF negative, follow up on SANJAY For possible discharge today on home oxygen. Discussed with patient to follow up with Dr. Orona/Janneth 1 week from discharge. Daniela Benjamin MD Nov 04, 2017 11:15
== END 2017-11-04 13:17 | disposition home health service (06) | DRG 166 ==
LOC: PHED 14:45 → PHEDA 19:15 → INTOOBSV 19:15 → OBSVTOIN 19:30 → PH3B 21:42 → N05A 10-22 11:20 → N03B 10-23 18:20 → N03A 10-23 22:42 → N07A 10-27 00:19 → HCPC 10-29 16:24 → N03B 10-29 17:45 → N05A 11-01 18:36
PROVIDERS: ADMIT Hospitalist; ATTEND Hospitalist
PROC: 0BD68ZX Extraction of Right Lower Lobe Bronchus, Via Natural or Artificial Opening Endoscopic, Diagnostic (ICD-10-PCS; 2017-10-23)
PROC: 0BBD4ZX Excision of Right Middle Lung Lobe, Percutaneous Endoscopic Approach, Diagnostic (ICD-10-PCS; 2017-10-29)
PROC: 5A09357 Assistance with Respiratory Ventilation, Less than 24 Consecutive Hours, Continuous Positive Airway Pressure (ICD-10-PCS; 2017-10-29)
PROC: 0BBF4ZX Excision of Right Lower Lung Lobe, Percutaneous Endoscopic Approach, Diagnostic (ICD-10-PCS; principal; 2017-10-29 13:51)
DX: R04.89 Hemorrhage from other sites in respiratory passages (principal); J96.91 Respiratory failure, unspecified with hypoxia; Z68.41 Body mass index [BMI] 40.0-44.9, adult; N17.9 Acute kidney failure, unspecified; I27.20 Pulmonary hypertension, unspecified; I11.0 Hypertensive heart disease with heart failure; I50.32 Chronic diastolic (congestive) heart failure; J98.11 Atelectasis; E87.70 Fluid overload, unspecified; E66.01 Morbid (severe) obesity due to excess calories; M06.9 Rheumatoid arthritis, unspecified; R59.0 Localized enlarged lymph nodes; J40 Bronchitis, not specified as acute or chronic; I25.10 Atherosclerotic heart disease of native coronary artery without angina pectoris; R16.1 Splenomegaly, not elsewhere classified; E78.5 Hyperlipidemia, unspecified; R00.8 Other abnormalities of heart beat; R00.0 Tachycardia, unspecified; R13.10 Dysphagia, unspecified; Z79.899 Other long term (current) drug therapy; Z79.82 Long term (current) use of aspirin; Z87.442 Personal history of urinary calculi; Z95.1 Presence of aortocoronary bypass graft; Z87.891 Personal history of nicotine dependence
CPT/HCPCS: 31623; 36600; 71045; 71046; 71250; 71260; 76937; 80048; 80053; 81001; 82805; 83605; 83615; 83735; 83880; 84439; 84443; 85007; 85025; 85027; 85610; 85652; 85730; 86021; 86038; 86039; 86140; 86430; 86480; 86611; 86631; 86632; 86738; 86850; 86900; 86901; 86920; 87015; 87040; 87070; 87071; 87102; 87116; 87176; 87205; 87206; 87385; 87449; 87556; 87641; 87798; 87804; 88112; 88305; 88307; 93005; 93306; 94002; 94150; 94640; 94664; 96361; 96374; J0131; J0692; J0696; J1100; J1170; J1644; J1650; J1940; J1956; J2250; J2405; J2710; J3010; J7030; J7120; J7613; Q9967